=== PATIENT | female | born 1985 | race Caucasian/White ===

== ENCOUNTER 2020-05-12 13:59 | Emergency (ER) | payer SELFPAY ==
[2020-05-12 14:05] VITALS: BP 137/77; PULSE 76; RESP 18; TEMP 37.1; O2SAT 99
[2020-05-12] MEDS: TETANUS,DIPHTHERIA,AC PERTUSSIS ADULT 0.5 ML (ADACEL) IM (14:32)
--- NOTE | 2020-05-12 14:32 | ED.ANIMALBIT ---
HPI - Animal Bite General Chief Complaint: Animal Bite Stated Complaint: cat bite Time Seen by Provider: 05/12/20 14:20 Source: patient Mode of arrival: ambulatory Limitations: no limitations History of Present Illness HPI narrative: Previously well 34-year-old woman comes in today complaining of a bite wounds to her left medial arm from a cat that she is watching for her sister. It occurred within the last hour. She denies any numbness, tingling weakness. MD complaint: animal bite Onset (ago): hour(s) (<1) Animal: cat Description of animal: household pet Mechanism: bite Location - Extremities: Left: arm Pain description: sharp Context: provoked Related Data Home Medications Medication Instructions Recorded Confirmed albuterol sulfate [ProAir HFA] 1 inh INHALATION QID 05/12/20 05/12/20 budesonide-formoterol [Symbicort] 2 puff INHALATION Q12H 05/12/20 05/12/20 clonazepam 1 mg PO BID 05/12/20 05/12/20 sertraline 150 mg PO DAILY 05/12/20 05/12/20 Allergies Allergy/AdvReac Type Severity Reaction Status Date / Time amoxicillin [From Amoxil] Allergy Itching Verified 05/12/20 14:21 bupropion [From Wellbutrin] Allergy Itching Verified 05/12/20 14:21 buspirone Allergy Itching Verified 05/12/20 14:21 ketorolac [From Toradol] Allergy Itching Verified 05/12/20 14:21 Latex, Natural Rubber Allergy Itching Verified 05/12/20 14:21 tramadol Allergy Itching Verified 05/12/20 14:21 Review of Systems Constitutional: Constitutional: Denies chills and Denies fever(s) Eyes: Eyes: Denies change in vision and Denies photophobia Cardiovascular: Cardiovascular: Denies chest pain and Denies radiating jaw, neck or arm pain Respiratory: Respiratory: Denies cough, Denies dyspnea and Denies wheezing Gastrointestinal: Gastrointestinal: Denies abdominal pain, Denies nausea and Denies vomiting Musculoskeletal: Musculoskeletal: Denies arthralgias and Denies joint swelling Integumentary/Breasts: Skin/Breast: Denies pruritus, Denies erythema and Denies rash Neurologic: Denies vertigo, Denies dizziness and Denies syncope Hematologic/Lymphatic: Hematologic/Lymphatic: Denies easy bleeding and Denies easy bruising Allergic/Immunologic: Allergic/Immunologic: Denies lip swelling and Denies wheezing PMFSH Social History Social History Smoking status: Current every day smoker Substance use: never Living arrangements: with family Exam Const: General: healthy appearing and alert Nutritional Appearance: obese Orientation/consciousness: patient oriented x3 Other: mild acute distress. HENMT: Face and sinus: normal facial exam Mouth: Yes moist mucous membranes Throat: posterior oropharynx normal Eyes: Conjunctivae: conjunctivae normal Pupils: Equal, round and reactive pupils present EOM: EOMs intact bilaterally Neck: Neck: normal visual inspection and no lymphadenopathy Resp: Effort & Inspection: normal respiratory effort and not labored Auscultation: clear to auscultation bilaterally, no rales, no rhonchi and no wheezes Cardio: Rate: regular rate Rhythm: regular rhythm Heart sounds: no murmurs Skin: General skin exam: normal color, no jaundice and no pallor Rashes: no rashes Neuro: General: patient oriented x3, moves all extremities, no focal motor deficits and CN's II-XI intact bilaterally Speech: normal speech Gait exam (Neuro): Normal gait present Extrem: General: normal to inspection and no clubbing, cyanosis or edema Psych: Appearance: grossly normal and well kempt Mental Status: mental status grossly normal Affect: normal affect Attitude: cooperative Thought content: Yes Normal thought content present Course Vital Signs Vital signs: Vital Signs Temperature 37.1 C 05/12/20 14:05 Pulse Rate 76 05/12/20 14:05 Respiratory Rate 18 05/12/20 14:05 Blood Pressure 137/77 05/12/20 14:05 Pulse Oximetry 99 05/12/20 14:05 Temperature 37
[2020-05-12 14:45] VITALS: RESP 17
== END 2020-05-12 14:45 | disposition home or self-care (01) ==
PROVIDERS: Emergency Provider Emergency Medicine
DX: S41.152A Open bite of left upper arm, initial encounter (principal); W55.01XA Bitten by cat, initial encounter
CPT/HCPCS: 90471; 90715; 99283

== ENCOUNTER 2022-06-16 20:20 | Emergency (ER) | payer OTHER, SELFPAY ==
--- NOTE | ~2022-06-16 | CT_ITS ---
EXAMINATION: CT lumbar spine wo con DATE: 06/16/2022 21:07 INDICATION: Lumbar back pain. TECHNIQUE: Computed tomography (CT) of the lumbar spine was performed without intravenous contrast. A utomated exposure control and iterative reconstruction technique were employed. The dose-length produ ct was 1480.31 mGy-cm. COMPARISON: None FINDINGS: There are 2 mm and 4 mm stones in right kidney. There is 4 degrees levocurvature of lumbar spine. There is 3 mm anterolisthesis of L4 on L5. Vertebral body heights are normal. There is mildly decreased disc height at L3-L4, moderately decreased disc height at L4-L5, and mildly decreased disc height at L5-S1. There are chronic bilateral L4 pars defects. The following disc levels are specifica lly discussed: L1-L2: The disc does not extend beyond the endplate margin. There is mild bilateral facet joint osteo arthritis. There is no neural foraminal stenosis. There is no central canal stenosis. L2-L3: The disc is bulging. There is mild bilateral facet joint osteoarthritis. There is mild bilater al neural foraminal stenosis. There is no central canal stenosis. L3-L4: The disc is bulging. There is mild bilateral facet joint osteoarthritis. There is no neural fo raminal stenosis. There is mild central canal stenosis. L4-L5: The disc is bulging. There is mild bilateral facet joint osteoarthritis. There is moderate and mild left neural foraminal stenosis. There is mild central canal stenosis. L5-S1: The disc is bulging. There is mild bilateral facet joint osteoarthritis. There is mild bilater al neural foraminal stenosis. There is mild central canal stenosis. IMPRESSION: 1. Chronic bilateral L4 pars defects with grade 1 anterolisthesis of L4 on L5. 2. Moderate lumbar spondylosis. Reviewed, dictated and finalized at location A.
[2022-06-16 20:25] VITALS: BP 121/75; PULSE 87; RESP 16; TEMP 35.9; O2SAT 100
[2022-06-16 21:01] LABS: Appearance Urine Clear (Clear); Bilirubin Urine Negative (Negative); Blood Urine Negative (Negative); Glucose Urine UA Negative (Negative); Ketones Urine Negative (Negative); Leukocyte Esterase Ur 1+ LEU/UL (Negative); Nitrate Urine Negative (Negative); Protein Urine Negative (Negative); Specific Grav Ur 1.015 (1.010-1.020); Urobilinogen Urine 0.2 mg/dL (0.2-1.0); pH Urine 7.5 (5.0-8.0)
[2022-06-16] MEDS: ORPHENADRINE CITRATE 100 MG TABLET.ER PO (21:08)
[2022-06-16] MEDS: MORPHINE SULFATE (*CRX) 2 MG/ML INJ IV PUSH (21:09)
[2022-06-16 21:11] LABS: Add Urine Microscopic? YES; Amorphous Sediment Urine Few; Bacteria Urine 2+ /hpf; Color Urine Light Yellow (Yellow); RBC Urine 0-2 /hpf (0-2); Squamous Epithelial Cell Urine Moderate /hpf (Few)
--- NOTE | 2022-06-16 21:19 | ED.BACK ---
HPI - Back Pain/Injury General Chief Complaint: Back Pain/Injury Stated Complaint: incontinence; doctor told her to come here Time Seen by Provider: 06/16/22 20:22 Source: patient and family Mode of arrival: ambulatory Limitations: no limitations History of Present Illness HPI Narrative: this is a 36-year-old female with a history of chronic back pain takes pain medication and muscle relaxants. Over the last 2 weeks her symptoms have worsened where she is having sciatic pain radiating down her right lower leg and has been having urinary frequency with dysuria with no flank pain no fever chills. There is no saddle paresthesias there is no bowel dysfunction. MD elicited complaint: back pain Pertinent past history: prior back pain Onset (ago): week(s) Timing: intermittent Severity: moderate Quality: sharp and tingling Location: lumbar spine Radiation: right upper leg and right leg below the knee Exacerbating factors: movement, coughing/sneezing and lifting Relieving factors: immobilization Context: while lifting and turning/twisting Related Data Home Medications Medication Instructions Recorded Confirmed albuterol sulfate 90 mcg/actuation 1 inh inhalation QID 05/12/20 06/16/22 aerosol inhaler (ProAir HFA) budesonide-formoterol HFA 160 2 puff inhalation Q12H 05/12/20 06/16/22 mcg-4.5 mcg/actuation aerosol inhaler (Symbicort) clonazepam 1 mg tablet 1 mg PO BID 05/12/20 06/16/22 sertraline 100 mg tablet 150 mg PO DAILY 05/12/20 06/16/22 atorvastatin 10 mg tablet 10 mg PO DAILY 06/16/22 06/16/22 baclofen 20 mg tablet 20 mg PO TID PRN Pain 06/16/22 06/16/22 iasghwcgth-hnljpdxhtpdps-sgiitobo 1 tablet PO Q1-4H PRN Headache 06/16/22 06/16/22 50 mg-325 mg-40 mg tablet celecoxib 200 mg capsule 200 mg PO DAILY 06/16/22 06/16/22 duloxetine 60 mg capsule,delayed 60 mg PO DAILY 06/16/22 06/16/22 release hydrocodone 10 mg-acetaminophen 1 tablet PO TID PRN Pain 06/16/22 06/16/22 325 mg tablet Allergies Allergy/AdvReac Type Severity Reaction Status Date / Time amoxicillin [From Amoxil] Allergy Itching Verified 06/16/22 20:33 bupropion [From Wellbutrin] Allergy Itching Verified 06/16/22 20:33 buspirone Allergy Itching Verified 06/16/22 20:33 ketorolac [From Toradol] Allergy Itching Verified 06/16/22 20:33 Latex, Natural Rubber Allergy Itching Verified 06/16/22 20:33 tramadol Allergy Itching Verified 06/16/22 20:33 Review of Systems Review of Systems: All systems reviewed & are unremarkable except as noted in HPI and below PMFSH Past Medical History Medical History (Updated 06/16/22 @ 22:21 by Jose Menendez MD) Asthma Bipolar disorder Surgical History Surgical History H/O oophorectomy H/O tubal ligation History of appendectomy Hx of cholecystectomy Social History Social History Smoking status: Current every day smoker Substance use: never Exam Const: General: healthy appearing Nutritional Appearance: well nourished Orientation/consciousness: patient oriented x3 Limitations: no limitations HENMT: Head: normal to inspection Eyes: EOM: EOMs intact bilaterally Neck: Neck: normal visual inspection Chest: Chest palpation & inspection: normal inspection of the chest Resp: Effort & Inspection: normal respiratory effort Auscultation: clear to auscultation bilaterally Cardio: Rate: regular rate GI: GI Palp: Yes Soft to palpation : General: Yes bladder normal to palpation Urinary Catheter: Urinary Catheter: patent and draining Back/Spine/Pelvis: Back: no CVA tenderness Skin: General skin exam: normal color Rashes: no rashes Neuro: General: patient oriented x3 Cranial nerves: Yes Nystagmus not present Extrem: General: normal to inspection and no clubbing, cyanosis or edema Psych: Mental Status: mental status grossly normal Affect: normal affect Course Cour
[2022-06-16] MEDS: NITROFURANTOIN MONOHYD MACROCR 100 MG CAP PO (21:20)
[2022-06-16 22:26] VITALS: BP 122/72; PULSE 73; RESP 16; O2SAT 99
== END 2022-06-16 22:26 | disposition home or self-care (01) ==
PROVIDERS: Emergency Provider Emergency Medicine; PCP Nurse Practitioner Family
DX: M54.16 Radiculopathy, lumbar region (principal); N30.00 Acute cystitis without hematuria
CPT/HCPCS: 72131; 81001; 87086; 96374; 99284; A9270; J2270

== ENCOUNTER 2022-09-23 09:03 | Emergency (ER) | payer OTHER, SELFPAY ==
[2022-09-23 09:08] VITALS: BP 138/76; PULSE 83; RESP 14; TEMP 36.3; O2SAT 98
[2022-09-23 09:15] VITALS: BP 138/78; PULSE 83; RESP 14; TEMP 36.3; O2SAT 98
--- NOTE | 2022-09-23 09:17 | ED.BACK ---
HPI - Back Pain/Injury General Chief Complaint: Back Pain/Injury Stated Complaint: back pain Time Seen by Provider: 09/23/22 09:17 Source: patient and RN notes reviewed Mode of arrival: ambulatory Limitations: no limitations History of Present Illness HPI Narrative: Patient states that she has a history of spinal stenosis and 3 bulging disc. She is currently on a pain contract in taking hydrocodone for her pain. She recently started on physical therapy and so her pain is increased. She says that because of her pain contract when she gets worsening pain her doctor said that she has come the emergency room. She took a hydrocodone 10 mg last evening says that it did not work so should she take 1 this morning. She did not take anything this morning. MD elicited complaint: back pain Pertinent past history: prior back pain Onset (ago): day(s) (1) Timing: constant Severity: severe Similar Symptoms Previously: Yes Location: lumbar spine Radiation: right leg below the knee Exacerbating factors: movement Relieving factors: none Associated symptoms: denies other symptoms Work related injury: No Related Data Home Medications Medication Instructions Recorded Confirmed albuterol sulfate 90 mcg/actuation 1 inh inhalation QID 05/12/20 09/23/22 aerosol inhaler (ProAir HFA) budesonide-formoterol HFA 160 2 puff inhalation Q12H 05/12/20 09/23/22 mcg-4.5 mcg/actuation aerosol inhaler (Symbicort) clonazepam 1 mg tablet 1 mg PO BID 05/12/20 09/23/22 sertraline 100 mg tablet 150 mg PO DAILY 05/12/20 09/23/22 atorvastatin 10 mg tablet 10 mg PO DAILY 06/16/22 09/23/22 baclofen 20 mg tablet 20 mg PO TID PRN Pain 06/16/22 09/23/22 eulicdyhsu-wbwlcsxkorbpo-qwwnqsys 1 tablet PO Q1-4H PRN Headache 06/16/22 09/23/22 50 mg-325 mg-40 mg tablet celecoxib 200 mg capsule 200 mg PO DAILY 06/16/22 09/23/22 duloxetine 60 mg capsule,delayed 60 mg PO DAILY 06/16/22 09/23/22 release hydrocodone 10 mg-acetaminophen 1 tablet PO TID PRN Pain 06/16/22 09/23/22 325 mg tablet Allergies Allergy/AdvReac Type Severity Reaction Status Date / Time amoxicillin [From Amoxil] Allergy Itching Verified 09/23/22 09:12 bupropion [From Wellbutrin] Allergy Itching Verified 09/23/22 09:12 buspirone Allergy Itching Verified 09/23/22 09:12 ketorolac [From Toradol] Allergy Itching Verified 09/23/22 09:12 Latex, Natural Rubber Allergy Itching Verified 09/23/22 09:12 tramadol Allergy Itching Verified 09/23/22 09:12 Review of Systems Review of Systems: All systems reviewed & are unremarkable except as noted in HPI and below PMFSH Past Medical History Medical History (Updated 09/23/22 @ 09:30 by Ricardo Mirza MD) Asthma Bipolar disorder Degenerative disc disease Surgical History Surgical History H/O oophorectomy H/O tubal ligation History of appendectomy Hx of cholecystectomy Social History Social History Smoking status: Current every day smoker Substance use: never Living arrangements: with family Exam Const: General: no acute distress, alert and ill appearing acutely Nutritional Appearance: obese morbidly obese Orientation/consciousness: patient oriented x3 Limitations: no limitations HENMT: Head: normal to inspection Ears: external ears normal Face/Nose/Sinus: Normal external nose present Face and sinus: normal facial exam Mouth: Yes moist mucous membranes Eyes: Conjunctivae: conjunctivae normal Pupils: Equal, round and reactive pupils present EOM: EOMs intact bilaterally Neck: Neck: normal visual inspection Resp: Effort & Inspection: normal respiratory effort Auscultation: clear to auscultation bilaterally Cardio: Rate: regular rate Rhythm: regular rhythm GI: GI Palp: Yes Soft to palpation and No Tenderness to palpation present (GI) Auscultation: normal bowel sounds Back/Spine/Pelvis: Cervical Spine: cerv
--- NOTE | 2022-09-23 09:25 | PC.NURSE ---
In room with Dr. Mirza during physical exam
[2022-09-23] MEDS: ORPHENADRINE CITRATE 30 MG/ML 2 ML VIAL 60 MG IM (09:29)
[2022-09-23] MEDS: KETOROLAC (*BKC) 60 MG/2 ML VIAL IM (09:30)
[2022-09-23 09:43] VITALS: BP 138/78; PULSE 83; RESP 14; TEMP 36.3; O2SAT 98
== END 2022-09-23 09:43 | disposition home or self-care (01) ==
LOC: CHSED 09:38
PROVIDERS: Emergency Provider Emergency Medicine; PCP Nurse Practitioner Family
DX: M54.31 Sciatica, right side (principal); J45.909 Unspecified asthma, uncomplicated; F17.200 Nicotine dependence, unspecified, uncomplicated; Z79.891 Long term (current) use of opiate analgesic
CPT/HCPCS: 96372; 99284; J1885; J2360

== ENCOUNTER 2022-11-12 17:43 | Emergency (ER) | payer OTHER, SELFPAY ==
[2022-11-12 17:49] VITALS: BP 129/88; PULSE 107; RESP 18; TEMP 35.9; O2SAT 98
[2022-11-12] MEDS: ACETAMINOPHEN 325 MG TABLET 650 MG PO (18:22)
[2022-11-12 18:40] LABS: Influenza A QL RT-PCR Negative (Negative); Influenza B QL RT-PCR Negative (Negative); SARS-CoV-2 RNA PCR Negative (Negative)
[2022-11-12 18:41] LABS: RSV RNA, RT-PCR Negative (Negative)
[2022-11-12 18:54] LABS: Strep Group A RT-PCR NOT DETECTED (Negative)
--- NOTE | 2022-11-12 19:06 | ED.URI ---
HPI - URI/Sore Throat General Chief Complaint: Upper Respiratory Infection Stated Complaint: Sore Throat, head, chest congestion Time Seen by Provider: 11/12/22 17:45 Source: patient and family Mode of arrival: ambulatory History of Present Illness HPI Narrative: This is a 36-year-old female that presents with sore throat and low-grade fever and chills currently afebrile and has a sore throat and was exposed to strep throat currently no shortness of breaths no audible wheezing no chest pain no nausea vomiting. MD elicited complaint: sore throat and nasal congestion Onset (ago): day(s) Consistency: constant Severity: mild Related Data Home Medications Medication Instructions Recorded Confirmed albuterol sulfate 90 mcg/actuation 1 inh inhalation QID 05/12/20 11/12/22 aerosol inhaler (ProAir HFA) budesonide-formoterol HFA 160 2 puff inhalation Q12H 05/12/20 11/12/22 mcg-4.5 mcg/actuation aerosol inhaler (Symbicort) clonazepam 1 mg tablet 1 mg PO BID 05/12/20 11/12/22 sertraline 100 mg tablet 150 mg PO DAILY 05/12/20 11/12/22 atorvastatin 10 mg tablet 10 mg PO DAILY 06/16/22 11/12/22 baclofen 20 mg tablet 20 mg PO TID PRN Pain 06/16/22 11/12/22 [id number]-hgtvlfiswcasb-skfpyouj 1 tablet PO Q1-4H PRN Headache 06/16/22 11/12/22 50 mg-325 mg-40 mg tablet celecoxib 200 mg capsule 200 mg PO DAILY 06/16/22 11/12/22 duloxetine 60 mg capsule,delayed 60 mg PO DAILY 06/16/22 11/12/22 release hydrocodone 10 mg-acetaminophen 1 tablet PO TID PRN Pain 06/16/22 11/12/22 325 mg tablet Allergies Allergy/AdvReac Type Severity Reaction Status Date / Time amoxicillin [From Amoxil] Allergy Itching Verified 11/12/22 17:51 bupropion [From Wellbutrin] Allergy Itching Verified 11/12/22 17:51 buspirone Allergy Itching Verified 11/12/22 17:51 ketorolac [From Toradol] Allergy Itching Verified 11/12/22 17:51 Latex, Natural Rubber Allergy Itching Verified 11/12/22 17:51 tramadol Allergy Itching Verified 11/12/22 17:51 Review of Systems Review of Systems: All systems reviewed & are unremarkable except as noted in HPI and below PMFSH Past Medical History Medical History Asthma Bipolar disorder Degenerative disc disease Surgical History Surgical History H/O oophorectomy H/O tubal ligation History of appendectomy Hx of cholecystectomy Social History Social History Smoking status: Current every day smoker Substance use: never Living arrangements: with family Exam Const: General: healthy appearing Nutritional Appearance: well nourished Orientation/consciousness: patient oriented x3 Limitations: no limitations HENMT: Head: normal to inspection Face/Nose/Sinus: Normal external nose present Face and sinus: normal facial exam Mouth: Yes Normal oral and palatal mucosa present Eyes: Conjunctivae: conjunctivae normal Pupils: Equal, round and reactive pupils present EOM: EOMs intact bilaterally Neck: Neck: normal visual inspection Chest: Chest palpation & inspection: normal inspection of the chest Resp: Effort & Inspection: normal respiratory effort Auscultation: clear to auscultation bilaterally Cardio: Rate: regular rate Rhythm: regular rhythm GI: GI Palp: Yes Soft to palpation Skin: General skin exam: normal color Rashes: no rashes Neuro: General: patient oriented x3 Cranial nerves: Yes Nystagmus not present Speech: normal speech Extrem: General: normal to inspection Psych: Mental Status: mental status grossly normal Affect: normal affect Attitude: cooperative Course Course Emergency Course: For COVID were negative but since the patient's significant other tested positive for strep and she has been exposed will treat with antibiotics patient did receive p.o. Tylenol. Vital Signs Vital signs: Vital Signs Temperature
[2022-11-12] MEDS: AZITHROMYCIN 250 MG TABLET 500 MG PO (19:24)
[2022-11-12 19:28] VITALS: BP 133/83; PULSE 88; RESP 20; TEMP 36.7; O2SAT 99
== END 2022-11-12 19:31 | disposition home or self-care (01) ==
PROVIDERS: Emergency Provider Emergency Medicine; PCP Nurse Practitioner Family
DX: J02.9 Acute pharyngitis, unspecified (principal); J45.909 Unspecified asthma, uncomplicated; F17.200 Nicotine dependence, unspecified, uncomplicated; Z79.891 Long term (current) use of opiate analgesic; Z20.822 Contact with and (suspected) exposure to COVID-19
CPT/HCPCS: 87637; 87651; 99283; A9270

== ENCOUNTER 2023-02-23 16:44 | Emergency (ER) | payer OTHER, SELFPAY ==
[2023-02-23 16:48] VITALS: BP 138/80; PULSE 104; RESP 18; TEMP 36.3; O2SAT 97
--- NOTE | 2023-02-23 16:51 | ED.UPPEXIN ---
HPI - Extremity Injury (Upper) General Chief Complaint: Extremity Injury, Upper Stated Complaint: shoulder pain Time Seen by Provider: 02/23/23 16:48 Source: patient and family Limitations: no limitations History of Present Illness HPI narrative: This is a 37-year-old female that had sustained a shoulder injury and was informed that she has a shoulder fracture and has an appointment to see Orthopedics tomorrow, presents today just to have a sling placed. Evaluated the patient there is no shortness of breath no chest pain does take medication for pain in her left shoulder and has a no numbness or tingling strong brisk radial pulse on the left. complaint: injury to: left Onset (ago): day(s) Severity: moderate Severity scale (1-10): 6 Related Data Home Medications Medication Instructions Recorded Confirmed albuterol sulfate 90 mcg/actuation 1 inh inhalation QID 05/12/20 02/23/23 aerosol inhaler (ProAir HFA) budesonide-formoterol HFA 160 2 puff inhalation Q12H 05/12/20 02/23/23 mcg-4.5 mcg/actuation aerosol inhaler (Symbicort) clonazepam 1 mg tablet 1 mg PO BID 05/12/20 02/23/23 sertraline 100 mg tablet 150 mg PO DAILY 05/12/20 02/23/23 atorvastatin 10 mg tablet 10 mg PO DAILY 06/16/22 02/23/23 baclofen 20 mg tablet 20 mg PO TID PRN Pain 06/16/22 02/23/23 [id number]-turiyvcskkqbe-cufzqvzb 1 tablet PO Q1-4H PRN Headache 06/16/22 02/23/23 50 mg-325 mg-40 mg tablet celecoxib 200 mg capsule 200 mg PO DAILY 06/16/22 02/23/23 duloxetine 60 mg capsule,delayed 60 mg PO DAILY 06/16/22 02/23/23 release hydrocodone 10 mg-acetaminophen 1 tablet PO TID PRN Pain 06/16/22 02/23/23 325 mg tablet Allergies Allergy/AdvReac Type Severity Reaction Status Date / Time amoxicillin [From Amoxil] Allergy Itching Verified 11/12/22 17:51 bupropion [From Wellbutrin] Allergy Itching Verified 11/12/22 17:51 buspirone Allergy Itching Verified 11/12/22 17:51 ketorolac [From Toradol] Allergy Itching Verified 11/12/22 17:51 Latex, Natural Rubber Allergy Itching Verified 11/12/22 17:51 tramadol Allergy Itching Verified 11/12/22 17:51 Review of Systems Review of Systems: All systems reviewed & are unremarkable except as noted in HPI and below PMFSH Past Medical History Medical History Asthma Bipolar disorder Degenerative disc disease Surgical History Surgical History H/O oophorectomy H/O tubal ligation History of appendectomy Hx of cholecystectomy Social History Social History Smoking status: Current every day smoker Substance use: never Living arrangements: with family Exam Const: General: healthy appearing Nutritional Appearance: well nourished Orientation/consciousness: patient oriented x3 Limitations: no limitations Neck: Neck: normal visual inspection Chest: Chest palpation & inspection: normal inspection of the chest Resp: Effort & Inspection: normal respiratory effort Auscultation: clear to auscultation bilaterally Cardio: Rate: regular rate Rhythm: regular rhythm GI: GI Palp: Yes Soft to palpation Skin: General skin exam: normal color Rashes: no rashes Neuro: General: patient oriented x3 Extrem: Other: Tender left shoulder with decreased range of motion secondary to sustain fracture Course Course Emergency Course: a sling placed on left arm and does have an ortho follow-up for a shoulder fracture. Vital Signs Vital signs: Vital Signs Temperature 36.3 C L 02/23/23 16:48 Pulse Rate 104 H 02/23/23 16:48 Respiratory Rate 18 02/23/23 16:48 Blood Pressure 138/80 02/23/23 16:48 Pulse Oximetry 97 02/23/23 16:48 Oxygen Delivery Room Air 02/23/23 16:48 Temperature 36.3 C L 02/23/23 16:48 Pulse Rate 104 H 02/23/23 16:48 Respiratory Rate 18 02/23/23 16:48 Blood Pressure 138/80 0
[2023-02-23 17:18] VITALS: BP 135/82; PULSE 98; RESP 17; TEMP 36.3; O2SAT 100
== END 2023-02-23 17:18 | disposition home or self-care (01) ==
PROVIDERS: Emergency Provider Emergency Medicine; PCP Nurse Practitioner Family
DX: S42.92XD Fracture of left shoulder girdle, part unspecified, subsequent encounter for fracture with routine healing (principal); F17.200 Nicotine dependence, unspecified, uncomplicated; Z79.891 Long term (current) use of opiate analgesic; X58.XXXD Exposure to other specified factors, subsequent encounter
CPT/HCPCS: 99282; A4565

== ENCOUNTER 2023-04-12 18:09 | Emergency (ER) | payer OTHER, SELFPAY | END 2023-04-12 18:47 | disposition home or self-care (01) | PROVIDERS: Emergency Provider Internal Medicine Critical Care Medicine | DX: N61.0 Mastitis without abscess (principal); T63.301A Toxic effect of unspecified spider venom, accidental (unintentional), initial encounter | CPT/HCPCS: 99283 ==

== ENCOUNTER 2023-08-05 14:53 | Emergency (ER) | payer OTHER, SELFPAY ==
[2023-08-05 14:56] VITALS: BP 125/86; PULSE 110; RESP 18; TEMP 36.9; O2SAT 98
--- NOTE | 2023-08-05 15:08 | ED.BACK ---
HPI - Back Pain/Injury General Chief Complaint: Back Pain/Injury Stated Complaint: back pain Time Seen by Provider: 08/05/23 14:59 Source: patient Mode of arrival: ambulatory Limitations: no limitations History of Present Illness HPI Narrative: this is a 37-year-old female with a history of chronic back pain that has increased in intensity over the last 3 to 4 days with radiation into her right lower extremity with a negative straight leg raising test with no saddle paresthesias no fever chills has some pain medicine at home that she says has not been helping. MD elicited complaint: back pain Pertinent past history: prior back pain Onset (ago): day(s) Timing: constant Severity: moderate Quality: dull and spasming Related Data Home Medications Medication Instructions Recorded Confirmed albuterol sulfate 90 mcg/actuation 1 inh inhalation QID 05/12/20 02/23/23 aerosol inhaler (ProAir HFA) budesonide-formoterol HFA 160 2 puff inhalation Q12H 05/12/20 02/23/23 mcg-4.5 mcg/actuation aerosol inhaler (Symbicort) clonazepam 1 mg tablet 1 mg PO BID 05/12/20 02/23/23 sertraline 100 mg tablet 150 mg PO DAILY 05/12/20 02/23/23 atorvastatin 10 mg tablet 10 mg PO DAILY 06/16/22 02/23/23 baclofen 20 mg tablet 20 mg PO TID PRN Pain 06/16/22 02/23/23 wvcibaqhpj-ukwiswurgseym-pgfbtrqt 1 tablet PO Q1-4H PRN Headache 06/16/22 02/23/23 50 mg-325 mg-40 mg tablet celecoxib 200 mg capsule 200 mg PO DAILY 06/16/22 02/23/23 duloxetine 60 mg capsule,delayed 60 mg PO DAILY 06/16/22 02/23/23 release hydrocodone 10 mg-acetaminophen 1 tablet PO TID PRN Pain 06/16/22 02/23/23 325 mg tablet Allergies Allergy/AdvReac Type Severity Reaction Status Date / Time amoxicillin [From Amoxil] Allergy Itching Verified 11/12/22 17:51 bupropion [From Wellbutrin] Allergy Itching Verified 11/12/22 17:51 buspirone Allergy Itching Verified 11/12/22 17:51 ketorolac [From Toradol] Allergy Itching Verified 11/12/22 17:51 Latex, Natural Rubber Allergy Itching Verified 11/12/22 17:51 tramadol Allergy Itching Verified 11/12/22 17:51 Review of Systems Review of Systems: All systems reviewed & are unremarkable except as noted in HPI and below PMFSH Past Medical History Medical History Asthma Bipolar disorder Degenerative disc disease Surgical History Surgical History H/O oophorectomy H/O tubal ligation History of appendectomy Hx of cholecystectomy Social History Social History Smoking status: Current every day smoker Substance use: never Living arrangements: with family Exam Const: General: healthy appearing Nutritional Appearance: well nourished Orientation/consciousness: patient oriented x3 Chest: Chest palpation & inspection: normal inspection of the chest Resp: Effort & Inspection: normal respiratory effort Auscultation: clear to auscultation bilaterally Cardio: Rate: regular rate Rhythm: regular rhythm GI: GI Palp: Yes Soft to palpation Auscultation: normal bowel sounds Back/Spine/Pelvis: Back: no CVA tenderness Skin: General skin exam: normal color Neuro: Other: Has right lower back discomfort with palpation with a negative straight leg raising test. Extrem: General: normal to inspection Psych: Mental Status: mental status grossly normal Affect: normal affect Course Course Emergency Course: Patient received a dose of 80mg Depo-Medrol IM and advised to take prednisone that is prescribed and Flexeril and follow with primary care physician within the next 3 to 4 days for further evaluation and treatment. Vital Signs Vital signs: Vital Signs Temperature 36.9 C 08/05/23 14:56 Pulse Rate 110 H 08/05/23 14:56 Respiratory Rate 18 08/05/23 14:56 Blood Pressure 125/86 08/05/23 14:56 Pulse Oximetry 98 08/05/23 14:56 O
[2023-08-05] MEDS: methylPREDNISolone ACETATE 40 MG/ML VIAL 80 MG IM (15:17)
[2023-08-05 15:44] VITALS: BP 128/88; PULSE 90; RESP 20; O2SAT 100
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
== END 2023-08-05 15:45 | disposition home or self-care (01) ==
PROVIDERS: Emergency Provider Emergency Medicine
DX: M54.30 Sciatica, unspecified side (principal); F17.200 Nicotine dependence, unspecified, uncomplicated
CPT/HCPCS: 96372; 99283; J1030

== ENCOUNTER 2024-06-12 20:54 | Emergency (ER) | payer OTHER, SELFPAY ==
--- NOTE | 2024-06-12 20:56 | ED.FEMALEGU ---
HPI - Female Genitourinary General Chief complaint: Urogenital-Female Stated complaint: urogenital female Time Seen by Provider: 06/12/24 20:56 Source: patient Mode of arrival: ambulatory Limitations: no limitations History of Present Illness HPI Narrative: 38-year-old female, smoker with a history of bipolar, dyslipidemia, COPD, DJD presents to the ED with a 1 day history of -- dysuria/ hematuria -- suprapubic abdominal pain. patient denied flank pain. No fever or chills status post BTL, oophorectomy, appendectomy, cholecystectomy. MD elicited complaint: dysuria and UTI Onset (ago): day(s) ( 1 day) Severity: moderate Female Urogenital Radiation: Non-Radiating Patient : No Possible : other ( Status post BTL) Date of Last Menstrual Period: 05/01/24 Related Data : 3 Total number of abortions (spontaneous and elective): 1 Home Medications Medication Instructions Recorded Confirmed clonazepam 1 mg tablet 1 mg PO BID 05/12/20 06/12/24 sertraline 100 mg tablet 200 mg PO DAILY 05/12/20 06/12/24 atorvastatin 10 mg tablet 10 mg PO DAILY 06/16/22 06/12/24 baclofen 20 mg tablet 20 mg PO TID PRN Pain 06/16/22 06/12/24 celecoxib 200 mg capsule 200 mg PO DAILY 06/16/22 06/12/24 duloxetine 60 mg capsule,delayed 60 mg PO DAILY 06/16/22 06/12/24 release hydrocodone 10 mg-acetaminophen 1 tablet PO TID PRN Pain 06/16/22 06/12/24 325 mg tablet prazosin 1 mg capsule 2 mg PO HS 08/05/23 06/12/24 albuterol sulfate 90 mcg/actuation 90 mcg inhalation PRN 06/12/24 06/12/24 aerosol inhaler atogepant 60 mg tablet (Qulipta) 60 mg PO DAILY 06/12/24 06/12/24 budesonide-formoterol HFA 160 2 puff inhalation DAILY 06/12/24 06/12/24 mcg-4.5 mcg/actuation aerosol inhaler (Symbicort) cariprazine 3 mg capsule (Vraylar) 3 mg PO DAILY 06/12/24 06/12/24 ergocalciferol (vitamin D2) 1,250 1,250 mcg PO DAILY 06/12/24 06/12/24 mcg (50,000 unit) capsule methocarbamol 750 mg tablet 750 mg PO PRN 06/12/24 06/12/24 Allergies Allergy/AdvReac Type Severity Reaction Status Date / Time amoxicillin [From Amoxil] Allergy Itching Verified 06/12/24 21:00 bupropion [From Wellbutrin] Allergy Itching Verified 06/12/24 21:00 buspirone Allergy Itching Verified 06/12/24 21:00 gabapentin Allergy Unknown Verified 06/12/24 21:00 ketorolac [From Toradol] Allergy Itching Verified 06/12/24 21:00 Latex, Natural Rubber Allergy Itching Verified 06/12/24 21:00 quetiapine [From Seroquel] Allergy Unknown Verified 06/12/24 21:00 tramadol Allergy Itching Verified 06/12/24 21:00 Review of Systems Review of Systems: All systems reviewed & are unremarkable except as noted in HPI and below Constitutional: Constitutional: Reports as per HPI and Reports no additional constitutional complaints Eyes: Eyes: Reports as per HPI and Reports no additional eye complaints ENT: Reports system reviewed and no additional complaints, except as documented and Reports as per HPI Cardiovascular: Cardiovascular: Reports as per HPI and Reports no additional cardiovascular complaints Respiratory: Respiratory: Reports as per HPI and Reports no additional respiratory complaints Gastrointestinal: Gastrointestinal: Reports as per HPI and Reports no additional gastrointestinal complaints Genitourinary: Genitourinary: Reports no additional female genitourinary complaints, Reports as per HPI, Reports hematuria and Reports dysuria Musculoskeletal: Musculoskeletal: Reports no additional musculoskeletal complaints and Reports as per HPI Integumentary/Breasts: Skin/Breast: Reports system reviewed and no additional complaints, except as docu and Reports as per HPI Neurologic: Reports system reviewed and no additional complaints, except as documented and Reports as per HPI Psychiatric: Psychiatric: Reports no additional psychiatric complaints and Reports as per HPI Endocrine: Endocrine: Reports no additional endocrine complaints and Reports as per HPI Hematologic/Lym
[2024-06-12 20:57] VITALS: BP 140/79; PULSE 107; RESP 18; TEMP 37; O2SAT 97
--- NOTE | 2024-06-12 20:59 | PC.NURSE ---
pt aware a urine specimen is needed. pt unable to go at this time
[2024-06-12 21:15] LABS: Add Urine Microscopic? YES; Appearance Urine Cloudy (Clear); Bilirubin Urine 1+ (Negative); Blood Urine 3+ (Negative); Color Urine Yellow (Yellow); Glucose Urine UA Negative (Negative); Ketones Urine Trace (Negative); Leukocyte Esterase Ur 2+ LEU/UL (Negative); Nitrate Urine Negative (Negative); Protein Urine 2+ (Negative); Specific Grav Ur >= 1.030 (1.010-1.020); pH Urine 5.5 (5.0-8.0)
[2024-06-12 21:21] LABS: Bacteria Urine 1+ /hpf; RBC Urine >75 /hpf (0-2); Squamous Epithelial Cell Urine Few /hpf (Few); WBC Urine >75 /hpf (0-3)
[2024-06-12] MEDS: CIPROFLOXACIN 250 MG TABLET PO (21:34)
[2024-06-12 21:44] VITALS: PULSE 98
--- NOTE | 2024-06-15 12:08 | PC.NURSE ---
final urine culture report reviewed. >[id number] staph saprophyticus.
--- NOTE | 2024-06-15 12:10 | PC.NURSE ---
pt discharged on cipro. urine culture shows susceptibility to same. no change in plan of care
== END 2024-06-12 21:44 | disposition home or self-care (01) ==
PROVIDERS: Emergency Provider Internal Medicine Critical Care Medicine; PCP Nurse Practitioner Family
DX: N30.01 Acute cystitis with hematuria (principal); F17.200 Nicotine dependence, unspecified, uncomplicated; Z79.899 Other long term (current) drug therapy; Z79.891 Long term (current) use of opiate analgesic
CPT/HCPCS: 81001; 87077; 87086; 87088; 99283; A9270

== ENCOUNTER 2025-03-21 16:39 | Emergency (ER) | payer OTHER, SELFPAY ==
[2025-03-21 16:39] VITALS: BP 134/72; PULSE 96; RESP 16; TEMP 36.1; O2SAT 98
--- OUTSIDE RECORDS SUMMARY | 2025-03-21 16:47 | XMS_ITS | Encounter Summary ---
Author Organization [facility] Address [facility] [place] [address] Care Team Providers Care Tax Attorney Name Role Phone Kat Jimenez Primary Care Provider [phone] Encounter Details Date Type Department Care Team (Late st Contact Info) Description 09/10/2022 MyChart Message Enc [facility] Medical Group Family & Internal Medicine [facility] [address] [place] [address] Kat Jimenez FNP [address] [place] [address] Ability to work Social History Tobacco Use Types Packs/Day Years Used Date Smoking Tobacco: Former Cigarettes 0.5 20 0 08/30/1999 - 08/30/2019 Smokeless Tobacco: Never Alcohol Use Standard Drinks/Week Comments Not Currently 0 (1 standard drink = 0.6 oz pur e alcohol) AUDIT-C Answer Date Recorded Q1: How often do you have a drink containing alc ohol? Monthly or less 12/29/2020 Q2: How many drinks containi ng alcohol do you have on a typical day when you are drinking? 1 or 2 12/29/2020 Frequency of Binge Drinking Not on file 11/2020 PHQ-2 Answer Date Recorded Patient Health Questionnaire-2 Score 0 08/17/2022 Comments No Sex and Gender Information Value Date Recorded Sex Assigned at Female 12/12/2024 2:30 PM CDT Legal Sex Female 9:29 PM CDT Gender Identity Not on file Sexual Orientation Not on file COVID-19 Exposure Response Date Recorded In the last 10 days, have yo u been in contact with someone who was confirmed or suspected to have Coronavirus/COVID-19? No / Unsure 08/17/2022 2:09 PM STOCK HOLDER documented as of this encounter Plan of Treatment Upcoming Encounters Date Type Department Care Team (Late st Contact Info) Description 04/17/2025 9:00 AM CDT Office Visit [facility] - [place] [address] [place] [address], 2nd [place] [address] Deny Rodriguez, DPM [address] [place] [address] 05/28/2025 10:40 AM CDT Office Visit [facility]ispecialty Care - [facility] [address] [facility], [address] [place] [address] Jose Vaughn MD [address] [place] [address] documented as of this encounter Visit Diagnoses Not on filedocumented in this encounter Additional Health Concerns Assessment Noted Time PHQ-9 Depression Total Score: 0 11/26/19 22 2:34 PM CDT documented as of this encounter Care Teams Tax Attorney Relationship Specialty Start Date End Date Kat Jimenez FNP [address] [place] [address] PCP - General Nurse Practitioner Family 02/11/21 documented as of this encounter
--- OUTSIDE RECORDS SUMMARY | 2025-03-21 16:47 | XMS_ITS | Encounter Summary ---
Author Organization [facility] Address [facility] [place] [address] Care Team Providers Care Boiler Repair Supervisor Name Role Phone Kat Jimenez Primary Care Provider [phone] Encounter Details Date Type Department Care Team (Late st Contact Info) Description 09/16/2022 MyChart Message Enc [facility] Medical Group Family & Internal Medicine [facility] [address] [place] [address] Kat Jimenez FNP [address] [place] [address] MRI Social History Tobacco Use Types Packs/Day Years [...] suspected to have Coronavirus/COVID-19? No / Unsure 09/19/2022 1:02 PM TRAIN OPERATIONS MANAGER documented as of this encounter Plan of Treatment Upcoming Encounters Date Type Department Care Team (Late st Contact Info) Description 04/17/2025 9:00 AM CDT Office Visit [facility] - [address], 2nd [place] [address] Deny Rodriguez, DPM [address] [place] [address] 05/28/2025 10:40 AM CDT Office Visit [facility] Multispecialty Care - [facility] [address] [facility], [address] [place] [address] Jose Vaughn MD [address] [place] [address] documented as of this encounter Visit Diagnoses Not on filedocumented in this encounter Additional Health Concerns Assessment Noted Time PHQ-9 Depression Total Score: 0 11/26/19 22 2:34 PM CDT documented as of this encounter Care Teams Boiler Repair Supervisor Relationship Specialty Start Date End Date Kat Jimenez FNP [address] [place] [address] PCP - General Nurse Practitioner Family 02/11/21 documented as of this encounter
--- OUTSIDE RECORDS SUMMARY | 2025-03-21 16:47 | XMS_ITS | Encounter Summary ---
Author Organization [facility] Address [facility] [place] [address] Care Team Providers Care Home Stereo Equipment Installer Name Role Phone Kat Jimenez Primary Care Provider [phone] Encounter Details Date Type Department Care Team (Late st Contact Info) Description 03/01/2021 MyChart Message Enc [facility] Medical Group Family & Internal Medicine [facility] [address] [place] [address] Kat Jimenez FNP [address] [place] [address] RE: Other Social History Tobacco Use Types Packs/Day Years Used Date Smoking Tobacco: Former Cigarettes Q uit: 08/30/2019 Smokeless Tobacco: Never Alcohol Use Standard [...] on file 11/2020 PHQ-2 Answer Date Recorded PHQ-2 Score - If the patient scores above 3, please move on to questions 3-9 6 02/11/2021 Comments No Sex and Gender Information Value Date Recorded Sex Assigned at Female 12/12/2024 2:30 PM CDT Legal Sex Female 9:29 PM CDT Gender Identity Not on file Sexual Orientation Not on file COVID-19 Exposure Response Date Recorded In the last month, have you been in contact with someone who was confirmed or suspected to have Coronavirus / COVID-19? No / Unsure 02/18/2021 12:25 PM CDT documented as of this encounter Progress Notes * RAYMUNDO Orellana - 03/02/2021 10:45 AM CDT The fish oil, she can put in the freezer to minimize burps and nausea. The muscle spasms, She can use the muscle relaxer and also take a magnesium supplement at night to help with her spasms. documented in this encounter Plan of Treatment Upcoming Encounters Date Type Department Care Team (Late st Contact Info) Description 04/17/2025 9:00 AM CDT Office Visit [facility] Medical Group [facility] - [address], 2nd [place] [address] Deny Rodriguez DPM [address] [place] [address] 05/28/2025 10:40 AM CDT Office Visit [facility] Medical Group Multispecialty Care - [facility] [address] [facility], [address] [place] [address] Jose Vaughn MD [address] [place] [address] documented as of this encounter Visit Diagnoses Not on filedocumented in this encounter Additional Health Concerns Infection Onset Date Last Indicated Resolved Time COVID-19 Rule Out 05/10/2021 05/10/2021 05/12/2021 12:30 AM CDT Assessment Noted Time PHQ-9 Depression Total Score: 25 06/2 021 3:00 PM CDT documented as of this encounter Care Teams Home Stereo Equipment Installer Relationship Specialty Start Date End Date Kat Jimenez FNP [address] [place] [address] PCP - General Nurse Practitioner Family 02/11/21 documented as of this encounter
--- OUTSIDE RECORDS SUMMARY | 2025-03-21 16:47 | XMS_ITS | Encounter Summary ---
Author Organization [facility] Address [facility] [place] [address] Care Team Providers Care Provider Engagement Executive Name Role Phone Kat Jimenez Primary Care Provider [phone] Encounter Details Date Type Department Care Team (Late st Contact Info) Description 04/15/2021 MyChart Message Enc [facility] Medical Group Family & Internal Medicine [facility] [address] [place] [address] Kat Jimenez FNP [address] [place] [address] RE: FW: Question Social History Tobacco Use Types Packs/Day Years [...] have Coronavirus / COVID-19? No / Unsure 04/14/2021 2:39 PM CDT documented as of this encounter Plan of Treatment Upcoming Encounters Date Type Department Care Team (Late st Contact Info) Description 04/17/2025 9:00 AM CDT Office Visit [facility] - [place] [address] [facility], 2nd [place] [address] Deny Rodriguez, LAURIE [address] [place] [address] 05/28/2025 10:40 AM CDT Office Visit [facility] Multispecialty Care - [facility] [address] [facility], [address] [place] [address] Jose Vaughn MD [address] [place] [address] documented as of this encounter Visit Diagnoses Not on filedocumented in this encounter Additional Health Concerns Infection Onset Date Last Indicated Resolved Time COVID-19 Rule Out 05/10/2021 05/10/2021 05/12/2021 12:30 AM CDT Assessment Noted Time PHQ-9 Depression Total Score: 25 021 3:00 PM CDT documented as of this encounter Care Teams Provider Engagement Executive Relationship Specialty Start Date End Date Kat Jimenez FNP [address] [place] [address] PCP - General Nurse Practitioner Family 02/11/21 documented as of this encounter
--- OUTSIDE RECORDS SUMMARY | 2025-03-21 16:47 | XMS_ITS | Encounter Summary ---
Author Organization [facility] Address [facility] [place] [address] Care Team Providers Care Overhead Garage Door Hanger Name Role Phone Kat Jimenez Primary Care Provider Encounter Details Date Type Department Care Team (Late st Contact Info) Description 05/05/2021 MyChart Message Enc [facility] Medical Group Family & Internal Medicine [facility] [address] [place] [address] Kat Jimenez FNP [address] [place] [address] RE: Referral Request Social History Tobacco Use Types Packs/Day Years [...] have Coronavirus / COVID-19? No / Unsure 04/21/2021 3:11 PM CDT documented as of this encounter Plan of Treatment Upcoming Encounters Date Type Department Care Team (Late st Contact Info) Description 04/17/2025 9:00 AM CDT Office Visit [facility] Medical [facility] - [place] [address] [facility], 2nd [place] [address] Deny Rodriguez, DPOlayinka [address] [place] [address] 05/28/2025 10:40 AM CDT Office Visit [facility] Multispecialty Care - [facility] [address] [facility], [address] [place] [address] Jose Vaughn MD 3 [place] [address] documented as of this encounter Visit Diagnoses Not on filedocumented in this encounter Additional Health Concerns Infection Onset Date Last Indicated Resolved Time COVID-19 Rule Out 05/10/2021 05/10/2021 05/12/2021 12:30 AM CDT Assessment Noted Time PHQ-9 Depression Total Score: 25 021 3:00 PM CDT documented as of this encounter Care Teams Overhead Garage Door Hanger Relationship Specialty Start Date End Date Kat Jimenez FNP [address] [place] [address] PCP - General Nurse Practitioner Family 02/11/21 documented as of this encounter
--- OUTSIDE RECORDS SUMMARY | 2025-03-21 16:47 | XMS_ITS | Encounter Summary ---
Author Organization [facility] Address [facility] [place] [address] Care Team Providers Care Real Estate Salesperson Name Role Phone Kat Jimenez Primary Care Provider [phone] Encounter Details Date Type Department Care Team (Late st Contact Info) Description 03/28/2021 MyChart Message Enc [facility] Medical Group Family & Internal Medicine [facility] [address] [place] [address] Kat Jimenez FNP [address] [place] [address] Referral Request Social History Tobacco Use Types [...] have Coronavirus / COVID-19? No / Unsure 03/16/2021 2:47 PM CDT documented as of this encounter Plan of Treatment Upcoming Encounters Date Type Department Care Team (Late st Contact Info) Description 04/17/2025 9:00 AM CDT Office Visit [facility] - [place] [address] [facility], 2nd [place] [address] Deny Rodriguez, DPM [address] [place] [address] 05/28/2025 10:40 AM CDT Office Visit [facility] Multispecialty Care - [facility] [address] [facility], [address] [place] [address] Jose Vaughn MD [address] [place] [address] documented as of this encounter Visit Diagnoses Not on filedocumented in this encounter Additional Health Concerns Infection Onset Date Last Indicated Resolved Time COVID-19 Rule Out 05/10/2021 05/10/2021 05/12/2021 12:30 AM CDT Assessment Noted Time PHQ-9 Depression Total Score: 25 021 3:00 PM CDT documented as of this encounter Care Teams Real Estate Salesperson Relationship Specialty Start Date End Date Kat Jimenez FNP [address] [place] [address] PCP - General Nurse Practitioner Family 02/11/21 documented as of this encounter
--- OUTSIDE RECORDS SUMMARY | 2025-03-21 16:47 | XMS_ITS | Encounter Summary ---
Author Organization [facility] Address [address] [place] [address] Care Team Providers Care Adhesive Sprayer Name Role Phone Juliann Ambrosio MD Primary Care Provider [phone] Kat Jimenez Primary Care Provider [phone] Encounter Details Date Type Department Care Team (Late Contact Info) Description 02/02/2019 Abstract [facility] CONVERSION [address] [place] [address] [place] [address] , Generic Conversion, Social History Tobacco Use Types Packs/Day Years Used Date Smoking Tobacco: Smoker, Current Status Unknown Comments Unknown Sex and Gender Information Value Date Recorded Sex Assigned at Female 12/12/2024 2:30 PM CDT Legal Sex Female 9:29 PM CDT Gender Identity Not on file Sexual Orientation Not on file documented as of this encounter Plan of Treatment Upcoming Encounters Date Type Department Care Team (Late Contact Info) Description 04/17/2025 9:00 AM CDT Office Visit [facility] Medical [facility] Specialists - [address], 2nd [place] [address] Deny Rodriguez DPM [address] [place], [place] [phone] 05/28/2025 10:40 AM CDT Office Visit [facility] Medical [facility] Multispecialty Care - [address], [address] [place] [address] Jose Vaughn MD [address] [place] [address] documented as of this encounter Visit Diagnoses Not on filedocumented in this encounter Additional Health Concerns Infection Onset Date Last Indicated Resolved Time COVID-19 Rule Out 05/10/2021 05/10/2021 05/12/2021 12:30 AM CDT documented as of this encounter Care Teams Adhesive Sprayer Relationship Specialty Start Date End Date Juliann Ambrosio MD PCP - General INTERNAL MEDICINE 12/29/20 02/10/21 Kat Jimenez FNP [address] [place] [address] PCP - General Nurse Practitioner Family 02/11/21 documented as of this encounter
--- OUTSIDE RECORDS SUMMARY | 2025-03-21 16:47 | XMS_ITS | Encounter Summary ---
Author Organization [facility] Address [facility] [place] [address] Care Team Providers Care Blower Feeder Dyed Raw Stock Name Role Phone Kat Jimenez Primary Care Provider [phone] Encounter Details Date Type Department Care Team (Late st Contact Info) Description 10/25/2021 MyChart Message Enc [facility] Medical Group Family & Internal Medicine [facility] [address] [place] [address] Kat Jimenez FNP [address] [place], [place] [id number] [place] Social History Tobacco Use Types Packs/Day Years [...] please move on to questions 3-9 6 10/29/2021 Comments No Sex and Gender Information Value Date Recorded Sex Assigned at Female 12/12/2024 2:30 PM CDT Legal Sex Female 9:29 PM CDT Gender Identity Not on file Sexual Orientation Not on file COVID-19 Exposure Response Date Recorded In the last 10 days, have yo u been in contact with someone who was confirmed or suspected to have Coronavirus/COVID-19? No / Unsure 10/25/2021 12:46 PM SEAMLESS HOSIERY KNITTER documented as of this encounter Plan of Treatment Upcoming Encounters Date Type Department Care Team (Late st Contact Info) Description 04/17/2025 9:00 AM CDT Office Visit [facility] Medical [facility] - [place] [address] [place] [address], 2nd [place] [address] Deny Rodriguez, LAURIE [address] [place] [address] 05/28/2025 10:40 AM CDT Office Visit [facility] Multispecialty Care - [address], [address] [place] [address] Jose Vaughn MD 3 [place] [address] documented as of this encounter Visit Diagnoses Not on filedocumented in this encounter Additional Health Concerns Assessment Noted Time PHQ-9 Depression Total Score: 25 021 3:00 PM CDT documented as of this encounter Care Teams Blower Feeder Dyed Raw Stock Relationship Specialty Start Date End Date Kat Jimenez FNP [address] [place] [address] PCP - General Nurse Practitioner Family 02/11/21 documented as of this encounter
--- OUTSIDE RECORDS SUMMARY | 2025-03-21 16:47 | XMS_ITS | Encounter Summary ---
Author Organization [facility] Address [facility] [place] [address] Care Team Providers Care Sorting Machine Operator Name Role Phone Kat Jimenez RAYMUNDO Primary Care Provider [phone] Encounter Details Date Type Department Care Team (Late Contact Info) Description 07/06/2023 MyChart Message Enc [facility] Medical [facility] Family & Internal Medicine [address] [address] [place], [facility] Provider Referal Social History Tobacco Use Types Packs/Day Years Used Date Smoking Tobacco: Former Cigarettes 0.5 20 0 08/30/1999 - 08/30/2019 Passive Smoke Exposure: Past Smokeless Tobacco: Never Comments:Stopped in 2019 Alcohol Use Standard Drinks/Week Comments Not Currently [...] Answer Date Recorded Patient Health Questionnaire-2 Score 6 02/22/2023 Comments No Sex and Gender Information Value Date Recorded Sex Assigned at Female 12/12/2024 2:30 PM CDT Legal Sex Female 9:29 PM CDT Gender Identity Not on file Sexual Orientation Not on file documented as of this encounter Plan of Treatment Upcoming Encounters Date Type Department Care Team (Late Contact Info) Description 04/17/2025 9:00 AM CDT Office Visit [facility] - [place] [address] [facility], 2nd [place] [address] Deny Rodriguez, LAURIE [address] [place] [address] 05/28/2025 10:40 AM CDT Office Visit [facility] Multispecialty Care - [facility] [address] [facility], [address] [place] [address] Jose Vaughn MD 3 [place] [address] documented as of this encounter Visit Diagnoses Not on filedocumented in this encounter Additional Health Concerns Assessment Noted Time PHQ-9 Depression Total Score: 25 023 2:25 PM CDT documented as of this encounter Care Teams Sorting Machine Operator Relationship Specialty Start Date End Date Kat Jimenez FNP [address] [place] [address] PCP - General Nurse Practitioner Family 02/11/21 documented as of this encounter
--- OUTSIDE RECORDS SUMMARY | 2025-03-21 16:47 | XMS_ITS | Encounter Summary ---
Author Organization [facility] Address [facility] [place] [address] Care Team Providers Care Outpatient Dietitian Name Role Phone Kat Jimenez Primary Care Provider [phone] Encounter Details Date Type Department Care Team (Late st Contact Info) Description 07/25/2022 MyChart Message Enc [facility] Medical Group Family & Internal Medicine [facility] [address] [place] [address] Kat Jimenez FNP [address] [place], [place] [id number] Pre-authorization Social History Tobacco Use Types Packs/Day Years [...] 3, please move on to questions 3-9 0 11/25/2021 Comments No Sex and Gender Information Value Date Recorded Sex Assigned at Female 12/12/2024 2:30 PM CDT Legal Sex Female 9:29 PM CDT Gender Identity Not on file Sexual Orientation Not on file COVID-19 Exposure Response Date Recorded In the last 10 days, have yo u been in contact with someone who was confirmed or suspected to have Coronavirus/COVID-19? No / Unsure 07/13/2022 2:24 PM REFORMATORY ATTENDANT documented as of this encounter Plan of Treatment Upcoming Encounters Date Type Department Care Team (Late st Contact Info) Description 04/17/2025 9:00 AM CDT Office Visit [facility] Medical [facility] Specialists - [address], 2nd [place] [address] Deny Rodriguez, LAURIE [address] [place] [address] 05/28/2025 10:40 AM CDT Office Visit [facility] Multispecialty Care - [facility] 3 [facility], [address] [place] [address] Joes Vaughn MD 3 [place] [address] documented as of this encounter Visit Diagnoses Not on filedocumented in this encounter Additional Health Concerns Assessment Noted Time PHQ-9 Depression Total Score: 0 11/26/19 22 2:34 PM CDT documented as of this encounter Care Teams Outpatient Dietitian Relationship Specialty Start Date End Date Kat Jimenez FNP [address] [place] [address] PCP - General Nurse Practitioner Family 02/11/21 documented as of this encounter
--- OUTSIDE RECORDS SUMMARY | 2025-03-21 16:47 | XMS_ITS | Encounter Summary ---
Author Organization [facility] Address [facility] [place] [address] Care Team Providers Care Glass Artist Name Role Phone Kat Jimenez Primary Care Provider [phone] Encounter Details Date Type Department Care Team (Late st Contact Info) Description 12/19/2022 MyChart Message Enc [facility] Medical Group Family & Internal Medicine [facility] [address] [place] [address] Kat Jimenez FNP [address] [place] [address] Referral to orthopedic doctor Social History Tobacco Use Types Packs/Day Years [...] suspected to have Coronavirus/COVID-19? No / Unsure 11/23/2022 2:01 PM CDT documented as of this encounter Plan of Treatment Upcoming Encounters Date Type Department Care Team (Late st Contact Info) Description 04/17/2025 9:00 AM CDT Office Visit [facility] Medical [facility] - [place] [address] [place] [address], 2nd [place] [address] Deny Rodriguez, LAURIE [address] [place] [address] 05/28/2025 10:40 AM CDT Office Visit [facility] Multispecialty Care - [address], [address] [place] [address] Jose Vaughn MD 3 [place] [address] documented as of this encounter Visit Diagnoses Not on filedocumented in this encounter Additional Health Concerns Assessment Noted Time PHQ-9 Depression Total Score: 0 11/26/19 22 2:34 PM CDT documented as of this encounter Care Teams Glass Artist Relationship Specialty Start Date End Date Kat Jimenez FNP [address] [place] [address] PCP - General Nurse Practitioner Family 02/11/21 documented as of this encounter
--- OUTSIDE RECORDS SUMMARY | 2025-03-21 16:47 | XMS_ITS | Encounter Summary ---
Author Organization [facility] Address [facility] [place] [address] Care Team Providers Care Cone Classifier Tender Name Role Phone Kat Jimenez Primary Care Provider [phone] Encounter Details Date Type Department Care Team (Late st Contact Info) Description 10/31/2021 MyChart Message Enc [facility] Medical Group Family & Internal Medicine [facility] [address] [place] [address] Kat Jimenez FNP [address] [place] [address] Tylenol with codeine Social History Tobacco Use Types Packs/Day Years [...] suspected to have Coronavirus/COVID-19? No / Unsure 10/29/2021 1:59 PM FILM NUMBERER documented as of this encounter Progress Notes * Angle Andrade MA - 11/09/2021 8:58 AM CDT Prior auth request on your desk to be signed. * RAYMUNDO Orellana - 11/08/2021 1:11 PM CDT This is for the hydrocodone? Do we need a PA? This is for you guys. * RAYMUNDO Orellana - 11/03/2021 2:10 PM CST Medication sent to pharmacy. Please advise her that I was out of the office and just got this message. NUMBERER documented in this encounter Plan of Treatment Upcoming Encounters Date Type Department Care Team (Late st Contact Info) Description 04/17/2025 9:00 AM CDT Office Visit [facility] Medical Group Foot & Ankle Specialists - [address], 2nd [place] [address] Deny Rodriguez DPM [address] [place] [address] 05/28/2025 10:40 AM CDT Office Visit [facility] Medical Group Multispecialty Care - [address], [address] [place] [address] Jose Vaughn MD 3 [place] [address] documented as of this encounter Visit Diagnoses Not on filedocumented in this encounter Additional Health Concerns Assessment Noted Time PHQ-9 Depression Total Score: 25 022 2:24 PM FILM NUMBERER documented as of this encounter Care Teams Cone Classifier Tender Relationship Specialty Start Date End Date Kat Jimenez FNP [address] [place] [address] PCP - General Nurse Practitioner Family 02/11/21 documented as of this encounter
--- OUTSIDE RECORDS SUMMARY | 2025-03-21 16:47 | XMS_ITS | Encounter Summary ---
Author Organization [facility] Address [address] [place] [address] Care Team Providers Care Associate Professor Of Geology Name Role Phone Kat Jimenez RAYMUNDO Primary Care Provider [phone] Encounter Details Date Type Department Care Team (Late st Contact Info) Description 09/16/2022 MyChart Message Enc [facility] Medical Group Multispecialty Care - [facility] [address] [facility], [address] [place] [address] Jerson Jacques MD 3 [place] [address] Dermal implants /MRI Social History Tobacco Use Types Packs/Day Years [...] Coronavirus/COVID-19? No / Unsure 09/19/2022 1:02 PM SPECIAL EDUCATION TEACHERS documented as of this encounter Plan of Treatment Upcoming Encounters Date Type Department Care Team (Late st Contact Info) Description 04/17/2025 9:00 AM CDT Office Visit [facility] Foot [facility] Ankle Specialists - [address], 2nd [place] [address] Deny Rodriguez DPM [address] [place] [address] 05/28/2025 10:40 AM CDT Office Visit [facility] Multispecialty Care - [facility] [address] [facility], [address] [place] [address] Jose Vaughn MD 3 [place] [address] documented as of this encounter Visit Diagnoses Not on filedocumented in this encounter Additional Health Concerns Assessment Noted Time PHQ-9 Depression Total Score: 0 11/26/19 22 2:34 PM CDT documented as of this encounter Care Teams Associate Professor Of Geology Relationship Specialty Start Date End Date Kat Jimenez FNP [address] [place] [address] PCP - General Nurse Practitioner Family 02/11/21 documented as of this encounter
--- OUTSIDE RECORDS SUMMARY | 2025-03-21 16:47 | XMS_ITS | Encounter Summary ---
Author Organization [facility] Address [facility] [place] [address] Care Team Providers Care Scientist Electronics Name Role Phone Kat Jimenez Primary Care Provider [phone] Encounter Details Date Type Department Care Team (Late st Contact Info) Description 11/28/2022 MyChart Message Enc [facility] Medical Group Family & Internal Medicine [facility] [address] [place] [address] Kat Jimenez FNP [address] [place] [address] Still no hydrocodone vraylar Social History Tobacco Use Types Packs/Day Years [...] Recorded In the last 10 days, have christa u been in contact with someone who was confirmed or suspected to have Coronavirus/COVID-19? No / Unsure 11/23/2022 2:01 PM CDT documented as of this encounter Progress Notes * Melissa Hayes MA - 11/29/2022 12:03 PM CDT Catrina, We apologize for the delay. We are working on the prior auths for your medications. You are also due for an appointment. Please call the office to schedule. * Melissa Hayes MA - 11/29/2022 12:03 PM CDTFrom: Catrina Carmen To: Kat Jimenez Sent: 11/28/2022 2:11 PM CDT Subject: Still no hydrocodone vraylar If someone could actually refill my meds and do prior authorization would be awesome I need prior authorization for my vraylar and now my celecoxib that I ve been on for over a year I mean I don't know what is going on but I feel like no one is refilling my meds on time or doing prior authorization documented in this encounter Plan of Treatment Upcoming Encounters Date Type Department Care Team (Late st Contact Info) Description 04/17/2025 9:00 AM CDT Office Visit [facility] Medical Group Foot & Ankle Specialists - [address], 2nd [place] [address] Deny Rodriguez DPM [address] [place], [place] [address] 05/28/2025 10:40 AM CDT Office Visit [facility] Medical Group Multispecialty Care - [address], [address] [place] [address] Jose Vaughn MD [address] [place] [address] [place] [address] documented as of this encounter Visit Diagnoses Not on filedocumented in this encounter Additional Health Concerns Assessment Noted Time PHQ-9 Depression Total Score: 0 11/26/19 22 2:34 PM CDT documented as of this encounter Care Teams Scientist Electronics Relationship Specialty Start Date End Date Kat Jimenez FNP [address] [place] [id number] PCP - General Nurse Practitioner Family 02/11/21 documented as of this encounter
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
--- OUTSIDE RECORDS SUMMARY | 2025-03-21 16:47 | XMS_ITS | Referral Summary ---
Author Organization [facility] Address [place] [address] Care Team Providers Care Gang Hemstitching Machine Operator Name Role Phone Kat Jimenez NP Primary Care Provider [phone] Kat Jimenez NP Unavailable [phone] Kat Jimenez NP Unavailable [phone] Allergies Active Allergy Reactions Criticality Noted Date [...] ears 07/27/20212020 Otalgia of both ears 07/27/2021 TMJ arthralgia 07/27/2021 08/03/2021 Social History Tobacco Use Types Packs/Day Years [...] on file Legal Sex Female 8:11 AM SUPERVISOR WALL MIRROR DEPARTMENT Gender Identity Not on file Sexual Orientation Not on file Last Filed Vital Signs Vital Sign Reading Time Taken Comments Blood Pressure 139/100 08/24/2021 3:04 PM SUPERVISOR WALL MIRROR DEPARTMENT Pulse 91 08/24/2021 3:04 PM SUPERVISOR WALL MIRROR DEPARTMENT Temperature 36.5 C (97.7 F) 08/24/2021 3:04 PM SUPERVISOR WALL MIRROR DEPARTMENT Respiratory Rate 20 08/24/2021 3:04 PM SUPERVISOR WALL MIRROR DEPARTMENT Oxygen Saturation 98% 08/24/2021 3:04 PM SUPERVISOR WALL MIRROR DEPARTMENT Inhaled Oxygen Concentration - - Weight 103.4 kg (228 lb) 08/24/2021 3:04 PM SUPERVISOR WALL MIRROR DEPARTMENT Height 160 cm (5' 3) 08/03/2021 3:17 PM SUPERVISOR WALL MIRROR DEPARTMENT Body Mass Index 40.39 08/03/2021 3:17 PM SUPERVISOR WALL MIRROR DEPARTMENT Plan of Treatment Not on file Goals [...] strategies and compensatory methods as needed Insurance [id number] Care Teams Gang Hemstitching Machine Operator Relationship Specialty Start Date End Date Kat Jimenez NP [address] [place] [address] PCP - General Nurse Practitioner 05/11/21 Kat Jimenez NP [address] [place] [address] Nurse Practitioner 05/11/21 Kat Jimenez NP [address] [place] [address] Nurse Practitioner Nurse Practitioner 04/02/21
--- OUTSIDE RECORDS SUMMARY | 2025-03-21 16:47 | XMS_ITS | Clinical Summary ---
Author Organization [facility] Address [address] [place] [address] Care Team Providers Care Counter Intelligence Agent Name Role Phone Kat Jimenez [employer] Primary Care Provider [phone] Source Comments [facility],non-owned Affiliates and Associated Physician Practices is amultiple site organization consisting of ambulatory clinics and hospital sitesin [place], [place], [place] and [place]. This disclosure is being madepursuant to the Care Everywhere program and may not contain all information available regarding this patient. Last updated 18.[facility] Allergies Active Allergy Reactions Criticality Noted Date Comments Amoxicillin Itching 09/24/2024 Bupropion Itching 09/24/2024 Buspirone Itching 09/24/2024 Gabapentin Itching 09/24/2024 Ketorolac Itching 09/24/2024 Latex Itching 09/24/2024 Quetiapine Unknown 09/24/2024 Tramadol Itching 09/24/2024 Medications * Be aware that medications may not be up to date on this document. Alwaysverify current medications with the patient. albuterol HFA (Proventil; Ventolin; Proair) 108 (90 Base) MCG/ACT inhaler Inhale 2 (two) puffs by mouth every 6 hours as needed Active Atogepant 60 MG TABS Take 1 (one) tablet by mouth once daily 4 Active celecoxib (CeleBREX) 200 MG capsule Take 1 (one) capsule by mouth once daily 4 Active clonazePAM (KlonoPIN) 1 MG tablet Take 1 (one) tablet by mouth 3 times daily as needed 5 Active DULoxetine (Cymbalta) 60 MG capsule Take 1 (one) capsule by mouth 2 times daily 5 Active vitamin D, ergocalciferol , (Drisdol) 1.25 MG (24062 UT) capsule Take 1 (one) capsule by mouth every 7 days 4 Active folic acid (Folvite) 1 MG tablet Take 1 (one) tablet by mouth once daily 3 Active methocarbamol (Robaxin) 750 MG tablet Take 1 (one) tablet to 2 (two) tablets by mouth 3 times daily as needed 5 Active varenicline (Chantix) 1 MG tablet Take 1 (one) tablet by mouth 2 times daily 5 Active sertraline (Zoloft) 100 MG tablet Take 2 (two) tablets by mouth once daily 5 Active cariprazine (Vraylar) 3 MG capsule Take 1 (one) capsule by mouth once daily 5 Active HYDROcodone-ac etaminophen (Hamilton) 10-325 MG tablet Take 1 (one) tablet by mouth every 8 hours as needed for Pain 5 Active budesonide-for moterol (Symbicort) 160-4.5 MCG/ACT inhaler Inhale 2 (two) puffs by mouth 2 times daily 4 Active cyanocobalamin (Vitamin B-12) 100 MCG tablet Take 1 (one) tablet by mouth once daily Active magnesium oxide (Mag-Ox) 400 MG tablet Take 1 (one) tablet by mouth once daily Active vitamin D3 (Cholecalcifer ol) 25 MCG (1000 UNITS) tablet Take 1 (one) tablet by mouth once daily Active multivitamin daily tablet Take 1 (one) tablet by mouth daily with food Active tamsulosin (Flomax) 0.4 MG capsule Take 1 (one) capsule by mouth once daily At the same time every day after a meal. 30 capsule 5 Active solifenacin (Vesicare) 5 MG tablet Take 1 (one) tablet by mouth once daily 30 tablet 5 Active acetaminophen (Tylenol) 500 MG tablet Take 1 (one) tablet by mouth every 6 hours as needed for Fever or Pain Maximum allowable Acetaminophen amount = 4 Grams (4000 mg) / 24 hours. Active Active Problems Problem Noted Date Diagnosed Date Kidney stone 09/24/2024 Resolved Problems Problem Noted Date Diagnosed Date Resolved Date UTI (urinary tract infection) 09/25/2024 10/09/2024 Social History Tobacco Use Types Packs/Day Years Used Date Smoking Tobacco: Every Day Cigarettes 0.5 25.6 Started: 08/1999 Smokeless Tobacco: Never Tobacco Cessation:Ready to Q uit: Not Asked; Counseling Given: Not Answered Alcohol Use Standard Drinks/Week Comments Not Currently 0 (1 standard drink = 0.6 oz pur e alcohol) Comments No Sex and Gender Information Value Date Recorded Sex Assigned at Not on file Legal Sex Female 9:49 AM [employer] Gender Identity Not on file Sexual Orientation Not on file Last Filed Vital Signs Vital Sign Reading Time Taken Comments Blood Pressure 123/74 10/08/2024 3:00 PM [employer] Pulse 85 10/08/2024 3:00 PM [employer] Temperature 36.6 C (97.9 F) 10/08/2024 2:36 PM [employer] Respiratory Rate 19 10/08/2024 3:00 PM [employer] Oxygen Saturation 92% 10/08/2024 3:00 PM [employer] Inhaled Oxygen Concentration - - Weight 99.9 kg (220 lb 3.2 oz) 10/08/2024 11:11 AM [employer] Height 162.6 cm (5' 4) 10/08/2024 11:11 AM [employer] Body Mass Index 37.8 10/08/2024 11:11 AM [employer] Plan of Treatment Health Maintenance Due Date Last Done Comments LIPID TESTING 1983 HIV SCREENING 12/01/1998 HEPATITIS C SCREENING 11/27/2001 DTAP/TDAP/TD VACCINES (1 - Tdap) 12/01/2002 HEPATITIS B VACCINE (1 of 3 - 19+ 3-dose series) 12/01/2002 PNEUMOCOCCAL VACCINE (1 of 2 - PCV) 12/01/2002 HPV VACCINE (1 - 3-dose SCDM series) 12/01/2010 PAP SMEAR 06/03/2024 06/03/2021, 06/03/2021 DEPRESSION SCREENING 08/28/2024 INFLUENZA VACCINE (#1) 2025 , 08/10/2023, 06/03/2021 MAMMOGRAM 05/07/2026 05/07/2024, 05/07/2024 ZOSTER VACCINE (1 of 2) 12/01/2033 COVID-19 VACCINE Completed 07/16/2024, 08/2021, 05/08/2021, Additional history exists HIB VACCINE Aged Out No longer eligi ble based on patient's age to complete this topic MENINGOCOCCAL (Group B) VACCINE SHARED DECISION-MAKING Aged Out No longer eligible based on patient's age to complete this topic MENINGOCOCCAL GROUPS A/C/Y/W VACCINE Aged Out No longer eligible based on patient's age to complete this topic Medical Devices Implanted Type Area Turner Off Device Identifier Shelf Expiration Date Model / Serial / Lot Stent Uret 5fr 24cm 2 Pgtl Crv 2 Drmtr Implanted:Qty : 1 on 09/24/2024 by Jocelyn Cervantes DO at [facility] Right: [employer] Sc[employer]ed [id number] 03/20/2027 [id number] 20 / / [id number] Explanted Type Area Turner Off Device Identifier Shelf Expiration Date Model / Serial / Lot Stent Uret 6fr 22cm Sft Tria Explanted:Qty : 1 on 09/24/2024 by Jocelyn Cervantes DO at [facility] Right: [employer] Trung [id number] 02/08/2027 [id number] 10 / / [id number] [place] [address] [place] [address] [facility] Advance Directives * Full Code (Latest Code Status on File) Date Activated Date Inactivated Comments 09/24/2024 5:31 AM 09/25/2024 1:11 PM Care Teams Counter Intelligence Agent Relationship Specialty Start Date End Date Kat Jimenez APRN-HAZEL [address] [place] [id number] PCP - General 08/10/21
--- OUTSIDE RECORDS SUMMARY | 2025-03-21 16:47 | XMS_ITS | Encounter Summary ---
Author Organization [facility] Address [facility] [place] [address] Care Team Providers Care Shop Assistant Name Role Phone Kat Jimenez Primary Care Provider [phone] Encounter Details Date Type Department Care Team (Late st Contact Info) Description 05/01/2021 MyChart Message Enc [facility] Medical Group Family & Internal Medicine [facility] [address] [place] [address] Kat Jimenez FNP [address] [place] [address] RE: FW: Other Social History Tobacco Use Types Packs/Day [...] Description 04/17/2025 9:00 AM CDT Office Visit [facility] Medical [facility] [place] [address], [address]nd [place] [phone] Deny Rodriguez, DPOlayinka [address] [place] [address] 05/28/2025 10:40 AM CDT Office Visit [facility] - [facility] [address] [facility] [address], [address] [place] [address] Jose Vaughn MD [address] [place] [address] documented as of this encounter Visit Diagnoses Not on filedocumented in this encounter Additional Health Concerns Infection Onset Date Last Indicated Resolved Time COVID-19 Rule Out 05/10/2021 05/10/2021 05/12/2021 12:30 AM CDT Assessment Noted Time PHQ-9 Depression Total Score: 25 021 3:00 PM CDT documented as of this encounter Care Teams Shop Assistant Relationship Specialty Start Date End Date Kat Jimenez FNP [address] [place] [id number] PCP - General Nurse Practitioner Family 02/11/21 documented as of this encounter
--- OUTSIDE RECORDS SUMMARY | 2025-03-21 16:48 | XMS_ITS | Encounter Summary ---
Author Organization [facility] Address [address] [place] [address] Care Team Providers Care Pullman Clerk Name Role Phone Kat Jimenez RAYMUNDO Primary Care Provider [phone] Encounter Details Date Type Department Care Team (Late st Contact Info) Description 06/04/2021 Snapsheet Message [employer] [facility] [address] [place] [id number] [facility] Provider Re: Pt Amendment Social History Tobacco Use Types Packs/Day Years [...] have Coronavirus / COVID-19? No / Unsure 06/03/2021 9:08 AM CDT documented as of this encounter Plan of Treatment Upcoming Encounters Date Type Department Care Team (Late st Contact Info) Description 04/17/2025 9:00 AM CDT Office Visit [facility] Medical [facility] - [address] [place] [address] Deny Rodriguez, DPOlayinka [address] [place] [address] 05/28/2025 10:40 AM CDT Office Visit [facility] - [facility] [address] [facility], [address] [place] [address] Jose Vaughn MD [address] [place] [address] documented as of this encounter Visit Diagnoses Not on filedocumented in this encounter Additional Health Concerns Assessment Noted Time PHQ-9 Depression Total Score: 25 021 3:00 PM CDT documented as of this encounter Care Teams Pullman Clerk Relationship Specialty Start Date End Date Kat Jimenez FNP [address] [place] [id number] PCP - General Nurse Practitioner Family 02/11/21 documented as of this encounter
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
--- OUTSIDE RECORDS SUMMARY | 2025-03-21 16:48 | XMS_ITS | Encounter Summary ---
Author Organization [facility] Address [facility] [place] [address] Care Team Providers Care Procedure Writer Name Role Phone Kat Jimenez Primary Care Provider [phone] Encounter Details Date Type Department Care Team (Late st Contact Info) Description 06/05/2021 MyCSayNowt Message Enc [facility] Medical Group Family & Internal Medicine [facility] [address] [place] [address] Kat Jimenez FNP [address] [place] [address] RE: FW: Question Social History [...] Description 04/17/2025 9:00 AM CDT Office Visit [facility] Medical [facility] - [address] 2nd [place] [phone] Deny Rodriguez, LAURIE [address] [place] [address] 05/28/2025 10:40 AM CDT Office Visit [facility] Multispecialty Care - [facility] [address] [facility], [address] [place] [address] Jose Vaughn MD [address] [place] [address] documented as of this encounter Visit Diagnoses Not on filedocumented in this encounter Additional Health Concerns Assessment Noted Time PHQ-9 Depression Total Score: 25 02/11/ 021 3:00 PM CDT documented as of this encounter Care Teams Procedure Writer Relationship Specialty Start Date End Date Kat Jimenez FNP [address] [place] [id number] PCP - General Nurse Practitioner Family 02/11/21 documented as of this encounter
--- OUTSIDE RECORDS SUMMARY | 2025-03-21 16:48 | XMS_ITS | Encounter Summary ---
Author Organization [facility] Address [facility] [place] [address] Care Team Providers Care Cashier Associate Name Role Phone Kat Jimenez Primary Care Provider Encounter Details Date Type Department Care Team (Late st Contact Info) Description 07/25/2022 MyChart Message Enc [facility] Medical Group Family & Internal Medicine [facility] [address] [place] [address] Kat Jimenez FNP [address] [place] [address] Severe pain Social History Tobacco Use Types Packs/Day Years [...] Coronavirus/COVID-19? No / Unsure 07/13/2022 2:24 PM EXPLOSIVE MAN documented as of this encounter Plan of Treatment Upcoming Encounters Date Type Department Care Team (Late st Contact Info) Description 04/17/2025 9:00 AM CDT Office Visit [facility] Medical [facility] - [place] [address] [place] [address], 2nd [place] [address] Deny Rodriguez, LAURIE [address] [place] [address] 05/28/2025 10:40 AM CDT Office Visit [facility] Multispecialty Care - [address], [address] [place] [address] Jose Vaughn MD [address] [place] [address] documented as of this encounter Visit Diagnoses Not on filedocumented in this encounter Additional Health Concerns Assessment Noted Time PHQ-9 Depression Total Score: 0 11/26/19 22 2:34 PM CDT documented as of this encounter Care Teams Cashier Associate Relationship Specialty Start Date End Date Kat Jimenez FNP [address] [place] [id number] PCP - General Nurse Practitioner Family 02/11/21 documented as of this encounter
--- OUTSIDE RECORDS SUMMARY | 2025-03-21 16:48 | XMS_ITS | Encounter Summary ---
Author Organization [facility] Address [facility] [place] [address] Care Team Providers Care Push Connector Assembler Name Role Phone Kat Jimenez Primary Care Provider [phone] Encounter Details Date Type Department Care Team (Late st Contact Info) Description 05/04/2024 MyChart Message Enc [facility] Medical Group Family & Internal Medicine [facility] [address] [place] [address] Kat Jimenez FNP [address] [place], [place] [phone] Meds pain Social History Tobacco Use Types Packs/Day [...] Answer Date Recorded Patient Health Questionnaire-2 Score 3 04/11/2024 Comments No Sex and Gender Information Value Date Recorded Sex Assigned at Female 12/12/2024 2:30 PM CDT Legal Sex Female 9:29 PM CDT Gender Identity Not on file Sexual Orientation Not on file documented as of this encounter Progress Notes * RAYMUNDO Orellana - 05/06/2024 12:38 PM CDT We can fill it when it is out. She was suppose to get 100 tabs documented in this encounter Plan of Treatment Upcoming Encounters Date Type Department Care Team (Late st Contact Info) Description 04/17/2025 9:00 AM CDT Office Visit [facility] Medical Group [facility] [place] [address] [facility], 2nd [place] [phone] Deny Rodriguez, DPOlayinka [address] [place] [address] 05/28/2025 10:40 AM CDT Office Visit [facility] Multispecialty Care - [facility] [address] [facility], [address] [place] [address] Jose Vaughn MD 3 [place] [address] documented as of this encounter Visit Diagnoses Not on filedocumented in this encounter Additional Health Concerns Assessment Noted Time PHQ-9 Depression Total Score: 10 024 1:37 PM CDT documented as of this encounter Care Teams Push Connector Assembler Relationship Specialty Start Date End Date Kat Jimenez FNP [address] [place] [address] PCP - General Nurse Practitioner Family 02/11/21 documented as of this encounter
--- OUTSIDE RECORDS SUMMARY | 2025-03-21 16:48 | XMS_ITS | Encounter Summary ---
Author Organization [facility] Address [facility] [place] [address] Care Team Providers Care Bull Chain Operator Name Role Phone Kat Jimenez Primary Care Provider [phone] Encounter Details Date Type Department Care Team (Late st Contact Info) Description 10/06/2021 MyChart Message Enc [facility] Medical Group Family & Internal Medicine [facility] [address] [place] [address] Kat Jimenez FNP [address] [place], [place] [phone] Med refills Social History Tobacco Use Types Packs/Day Years [...] encounter Progress Notes * RAYMUNDO Orellana - 10/06/2021 8:59 PM CST We can try lyrica a long acting pain medication for nerve/fibromyalgia pain, if she would like. 75 mg daily for a couple weeks and then reevaluate her pain. Other than that, we will have to find a pain management to get her in. CULAR TECHNOLOGIST documented in this encounter Plan of Treatment Upcoming Encounters Date Type Department Care Team (Late st Contact Info) Description 04/17/2025 9:00 AM CDT Office Visit [facility] Medical [facility] - [address], 2nd [place] [address] Deny Rodriguez, DPM [address] [place] [address] 05/28/2025 10:40 AM CDT Office Visit [facility] Multispecialty Care - [facility] [address] [facility], [address] [place] [address] Jose Vaughn MD 3 [place] [address] documented as of this encounter Visit Diagnoses Not on filedocumented in this encounter Additional Health Concerns Assessment Noted Time PHQ-9 Depression Total Score: 25 021 3:00 PM CDT documented as of this encounter Care Teams Bull Chain Operator Relationship Specialty Start Date End Date Kat Jimenez FNP [address] [place] [address] PCP - General Nurse Practitioner Family 02/11/21 documented as of this encounter
--- OUTSIDE RECORDS SUMMARY | 2025-03-21 16:48 | XMS_ITS | Encounter Summary ---
Author Organization [facility] Address [facility] [place] [address] Care Team Providers Care Connie Cleaner Name Role Phone Kat Jimenez Primary Care Provider [phone] Encounter Details Date Type Department Care Team (Late st Contact Info) Description 05/31/2021 MyChart Message Enc [facility] Medical Group Family & Internal Medicine [facility] [address] [place] [address] Kat Jimenez FNP [address] [place] [address] RE: Question Social History Tobacco Use Types Packs/Day [...] Description 04/17/2025 9:00 AM CDT Office Visit [facility] - [place] [address] [facility], 2nd [place] [address] Deny Rodriguez, DPOlayinka [address] [place] [address] 05/28/2025 10:40 AM CDT Office Visit [facility] Multispecialty Care - [facility] 3 [facility], [address] [place] [address] Jose Vaughn MD 3 [place] [address] documented as of this encounter Visit Diagnoses Not on filedocumented in this encounter Additional Health Concerns Assessment Noted Time PHQ-9 Depression Total Score: 25 02/11/ 021 3:00 PM CDT documented as of this encounter Care Teams Connie Cleaner Relationship Specialty Start Date End Date Kat Jimenez FNP [address] [place] [address] PCP - General Nurse Practitioner Family 02/11/21 documented as of this encounter
--- OUTSIDE RECORDS SUMMARY | 2025-03-21 16:48 | XMS_ITS | Encounter Summary ---
Author Organization [facility] Address [facility] [place] [address] Care Team Providers Care Credit Verifier Name Role Phone Kat Jimenez Primary Care Provider [phone] Encounter Details Date Type Department Care Team (Late st Contact Info) Description 02/22/2022 MyChart Message Enc [facility] Medical Group Family & Internal Medicine [facility] [address] [place] [address] Kat Jimenez FNP [address] [place] [address] Severe pain Social History Tobacco [...] In the last 10 days, have christa key been in contact with someone who was confirmed or suspected to have Coronavirus/COVID-19? No / Unsure 02/16/2022 1:55 PM CDT documented as of this encounter Progress Notes * RAYMUNDO Orellana - 02/22/2022 1:32 PM CDT I will send her out an increased dose of pain medication. We can try to see if they will get her insooner. I am not sure about the mental health provider. Is she still taking the vraylar? documented in this encounter Plan of Treatment Upcoming Encounters Date Type Department Care Team (Late st Contact Info) Description 04/17/2025 9:00 AM CDT Office Visit [facility] Medical Group [facility] - [address], 2nd [place] [address] Deny Rodriguez, LAURIE [address] [place] [address] 05/28/2025 10:40 AM CDT Office Visit [facility] Medical Group Multispecialty Care - [facility] [address] [facility], [address] [place] [address] Jose Vaughn MD 3 [place] [address] documented as of this encounter Visit Diagnoses Not on filedocumented in this encounter Additional Health Concerns Assessment Noted Time PHQ-9 Depression Total Score: 0 11/26/19 22 2:34 PM CDT documented as of this encounter Care Teams Credit Verifier Relationship Specialty Start Date End Date Kat Jimenez FNP [address] [place] [address] PCP - General Nurse Practitioner Family 6/17/21 documented as of this encounter
--- OUTSIDE RECORDS SUMMARY | 2025-03-21 16:48 | XMS_ITS | Encounter Summary ---
Author Organization [facility] Address [facility] [place] [address] Care Team Providers Care Machine Sewer Name Role Phone Kat Jimenez Primary Care Provider [phone] Encounter Details Date Type Department Care Team (Late st Contact Info) Description 07/25/2022 MyChart Message Enc [facility] Medical Group Family & Internal Medicine [facility] [address] [place] [address] Kat Jimenez FNP [address] [place], [place] [phone] Pre-authorization Social History Tobacco Use Types Packs/Day [...] Coronavirus/COVID-19? No / Unsure 07/13/2022 2:24 PM DIRECTOR TELECOMMUNICATIONS documented as of this encounter Plan of Treatment Upcoming Encounters Date Type Department Care Team (Late st Contact Info) Description 04/17/2025 9:00 AM CDT Office Visit [facility] Medical [facility] Foot [facility]le Specialists - [address], [address]nd [place] [address] Deny Rodriguez, LAURIE [address] [place] [address] 05/28/2025 10:40 AM CDT Office Visit [facility] Multispecialty Care - [facility] [address] [facility], [address] [place] [address] Jose Vaughn MD 3 [place] [address] documented as of this encounter Visit Diagnoses Not on filedocumented in this encounter Additional Health Concerns Assessment Noted Time PHQ-9 Depression Total Score: 0 11/26/19 22 2:34 PM CDT documented as of this encounter Care Teams Machine Sewer Relationship Specialty Start Date End Date Kat Jimenez FNP [address] [place] [address] PCP - General Nurse Practitioner Family 02/11/21 documented as of this encounter
--- NOTE | 2025-03-21 17:07 | ED.BACK ---
HPI - Back Pain/Injury General Chief Complaint: Back Pain/Injury Stated Complaint: low back pain Time Seen by Provider: 03/21/25 16:49 Source: patient Mode of arrival: ambulatory Limitations: no limitations History of Present Illness HPI Narrative: 39-year-old female with a history of bipolar disorder, COPD, chronic low back pain( lumbar spondylosis, L4 pars defect, anterolisthesis of L4 on L5, multiple discs bulge with foraminal and canal stenosis and facet joint osteoarthritis) is awaiting spinal surgery. She is unable to get surgery secondary to hers ongoing smoking and COPD. Today she bent forwards following which she developed acute low back pain. No radiation of the pain. No motor or sensory deficit of lower extremity. No bladder or bowel involvement. No perineal sensory loss. MD elicited complaint: back pain Pertinent past history: prior back pain Onset (ago): hour(s) ( Chronic low back pain with exacerbation 4 hours ago.) Timing: constant Similar Symptoms Previously: Yes Quality: aching Location: lumbar spine Radiation: none Exacerbating factors: movement Relieving factors: immobilization Associated symptoms: denies other symptoms Treatments prior to arrival: NSAIDS and prescription analgesics Related Data Home Medications ?Medication ?Instructions ?Recorded ?Confirmed ?Last Taken ?Type clonazepam 1 mg tablet 1 mg PO BID 05/12/20 06/12/24 06/12/24 History sertraline 100 mg tablet 200 mg PO DAILY 05/12/20 06/12/24 06/12/24 History atorvastatin 10 mg tablet 10 mg PO DAILY 06/16/22 06/12/24 06/12/24 History baclofen 20 mg tablet 20 mg PO TID PRN Pain 06/16/22 06/12/24 06/12/24 History celecoxib 200 mg capsule 200 mg PO DAILY 06/16/22 06/12/24 06/12/24 History duloxetine 60 mg capsule,delayed 60 mg PO DAILY 06/16/22 06/12/24 06/12/24 History release hydrocodone 10 mg-acetaminophen 1 tablet PO TID PRN Pain 06/16/22 06/12/24 06/12/24 History 325 mg tablet prazosin 1 mg capsule 2 mg PO HS 08/05/23 06/12/24 06/12/24 History albuterol sulfate 90 mcg/actuation 90 mcg inhalation PRN 06/12/24 06/12/24 06/12/24 History aerosol inhaler atogepant 60 mg tablet (Qulipta) 60 mg PO DAILY 06/12/24 06/12/24 06/12/24 History budesonide-formoterol HFA 160 2 puff inhalation DAILY 06/12/24 06/12/24 06/12/24 History mcg-4.5 mcg/actuation aerosol inhaler (Symbicort) cariprazine 3 mg capsule (Vraylar) 3 mg PO DAILY 06/12/24 06/12/24 06/12/24 History ergocalciferol (vitamin D2) 1,250 1,250 mcg PO DAILY 06/12/24 06/12/24 06/12/24 History mcg (50,000 unit) capsule methocarbamol 750 mg tablet 750 mg PO PRN 06/12/24 06/12/24 06/12/24 History Allergies Allergy/AdvReac Type Severity Reaction Status Date / Time amoxicillin (From Amoxil) Allergy Itching Verified 09/24/24 00:37 bupropion (From Wellbutrin) Allergy Itching Verified 09/24/24 00:37 buspirone Allergy Itching Verified 09/24/24 00:37 gabapentin Allergy Unknown Verified 09/24/24 00:37 ketorolac (From Toradol) Allergy Itching Verified 09/24/24 00:37 Latex, Natural Rubber Allergy Itching Verified 09/24/24 00:37 quetiapine (From Seroquel) Allergy Unknown Verified 09/24/24 00:37 tramadol Allergy Itching Verified 09/24/24 00:37 Review of Systems Review of Systems: All systems reviewed & are unremarkable except as noted in HPI and below Constitutional: Constitutional: Reports as per HPI and Reports no additional constitutional complaints Eyes: Eyes: Reports as per HPI and Reports no additional eye complaints ENT: Reports system reviewed and no additional complaints, except as documented and Reports as per HPI Cardiovascular: Cardiovascular: Reports as per HPI and Reports no additional cardiovascular complaints Respiratory: Respiratory: Reports as per HPI, Reports no additional respiratory complaints and Reports cough Gastrointestinal: Gastrointestinal: Reports as per HPI and Reports no additional gastrointestinal complaints Genitourinary: Genitourinary: Reports no additional female genitourinary complaints and Reports as per HPI Musculoskeletal: Musculoskeletal: Reports back pain Integumentary/Breasts: Skin/Breast: Reports system reviewed and no additional complaints, except as docu and Reports as per HPI Neurologic: Reports system reviewed and no additional complaints, except as documented and Reports as per HPI Psychiatric: Psychiatric: Reports no additional psychiatric complaints and Reports as per HPI Endocrine: Endocrine: Reports no additional endocrine complaints and Reports as per HPI Hematologic/Lymphatic: Hematologic/Lymphatic: Reports no additional hematologic/lymphatic complaints and Reports as per HPI Allergic/Immunologic: Allergic/Immunologic: Reports no additional allergic/immunologic complaints and Reports as per HPI [facility] Past Medical History Medical History Degenerative disc disease Bipolar disorder Asthma Surgical History Surgical History H/O oophorectomy H/O tubal ligation Hx of cholecystectomy History of appendectomy Social History Social History Smoking status: Current every day smoker Substance use: never Living arrangements: with family Exam Const: General: no acute distress Orientation/consciousness: patient oriented x3 Limitations: no limitations HENMT: Head: normal to inspection Ears: external ears normal Face/Nose/Sinus: Normal external nose present Face and sinus: normal facial exam Mouth: Yes Normal oral and palatal mucosa present Throat: posterior oropharynx normal Eyes: Conjunctivae: conjunctivae normal Pupils: Equal, round and reactive pupils present EOM: EOMs intact bilaterally Direct Ophthalmoscopy: no photophobia Neck: Neck: normal visual inspection, no lymphadenopathy and no meningeal signs Chest: Chest palpation & inspection: normal inspection of the chest Resp: Effort & Inspection: normal respiratory effort Auscultation: diminished lung sounds Cardio: Rate: regular rate Rhythm: regular rhythm GI: Auscultation: normal bowel sounds Other: No tenderness/ rigidity / rebound. : General: Yes no CVA tenderness Back/Spine/Pelvis: Back: no CVA tenderness Other: No spinal tenderness. SLR negative on both sides no motor or sensory deficit in the lower extremities Skin: General skin exam: normal color Rashes: no rashes Wounds: no wounds Neuro: General: patient oriented x3, moves all extremities, no meningeal signs, no focal motor deficits and CN's II-XI intact bilaterally Speech: normal speech Extrem: General: normal to inspection and no clubbing, cyanosis or edema Psych: Mental Status: mental status grossly normal Affect: normal affect Course Course Emergency Course: acute exacerbation of chronic low back pain-- patient had CT of the lumbar spine in 2021 which revealed lumbar spondylosis, L4 pars defect, anterolisthesis of L4 on L5, mild disc bulge multiple levels with neural foraminal stenosis and mild canal stenosis and facet joint osteoarthritis. Patient has had a more recent MRI and was prescribed back surgery by neurosurgeon Dr. Jacques. Patient is on chronic Aurora and celecoxib. Will give a dose of Dilaudid and p.o. Zofran. got urine examination which was unremarkable. Vital Signs Vital signs: Vital Signs Temperature 36.1 C L 03/21/25 16:39 Pulse Rate 96 03/21/25 16:39 Respiratory Rate 16 03/21/25 16:39 Blood Pressure 134/72 03/21/25 16:39 Pulse Oximetry 98 03/21/25 16:39 Oxygen Delivery Room Air 03/21/25 16:39 Temperature 36.1 C L 03/21/25 16:39 Pulse Rate 96 03/21/25 16:39 Respiratory Rate 16 03/21/25 16:39 Blood Pressure 134/72 03/21/25 16:39 Pulse Oximetry 98 03/21/25 16:39 Oxygen Delivery Room Air 03/21/25 16:39 MDM - Back Pain/Injury MDM Narrative Medical decision making narrative: Chronic low back pain Differential Diagnosis Differential diagnosis: Likely lumbar radiculopathy and strain of lumbar region Medical Records Attestation: I reviewed the patient's medical records. Lab Data Labs: Lab Results 03/21/25 Range/Units 17:14 Urine Color Yellow (Yellow) Urine Appearance Clear (Clear) Urine pH 6.0 (5.0-8.0) Ur Specific [place] >= 1.030 H (1.010-1.020) Urine Protein Negative (Negative) Urine Glucose (UA) Negative (Negative) Urine Ketones Negative (Negative) Ur Blood (Man) Negative (Negative) Urine Nitrate Negative (Negative) Urine Bilirubin Negative (Negative) Urine Urobilinogen 1.0 (0.2-1.0) mg/dL Leukocyte Esterase Rfl Negative (Negative) WILSON/UL Discharge Plan Discharge Clinical Impression: Chronic low back pain Qualifiers: Back pain laterality: unspecified Sciatica presence: without sciatica Qualified Code(s): M54.50 - Low back pain, unspecified Patient Disposition: Home Condition: Stable Instructions: Antibiotic Form, Chronic Back Pain (DC) Patient Language: Frisian Prescriptions: No Action sertraline 100 mg Tablet 200 mg PO DAILY clonazepam 1 mg Tablet 1 mg PO BID prednisone 20 mg tablet 20 mg PO DAILY 5 Days Qty: 5 0RF cyclobenzaprine 5 mg tablet 5 mg PO TID Qty: 20 0RF prazosin 1 mg capsule 2 mg PO HS methocarbamol 750 mg tablet 750 mg PO PRN ergocalciferol (vitamin D2) 1,250 mcg (50,000 unit) capsule 1,250 mcg PO DAILY albuterol sulfate 90 mcg/actuation HFA aerosol inhaler 90 mcg INHALATION PRN budesonide-formoterol [Symbicort] 160-4.5 mcg/actuation HFA aerosol inhaler 2 puff INHALATION DAILY Vraylar 3 mg capsule 3 mg PO DAILY Qulipta 60 mg tablet 60 mg PO DAILY celecoxib 200 mg capsule 200 mg PO DAILY atorvastatin 10 mg tablet 10 mg PO DAILY hydrocodone-acetaminophen 10-325 mg tablet 1 tablet PO TID PRN (Reason: Pain) baclofen 20 mg tablet 20 mg PO TID PRN (Reason: Pain) duloxetine 60 mg capsule,delayed release(DR/EC) 60 mg PO DAILY Follow-up/Referrals: MINNIE,YODIT FRANCO [Primary Care Provider] - Time of Disposition: 17:44
--- OUTSIDE RECORDS SUMMARY | 2025-03-21 17:15 | XMS_ITS | Encounter Summary ---
Author Organization [facility] Address [facility] [place] [address] Care Team Providers Care Earth Science Professor Name Role Phone Kat Jimenez Primary Care Provider [phone] Encounter Details Date Type Department Care Team (Late st Contact Info) Description 05/04/2024 MyChart Message Enc [facility] Medical Group Family & Internal Medicine [facility] [address] [place] [address] Kat Jimenez FNP [address] [place], [place] [phone] Meds pain Social History Tobacco Use Types [...] Description 04/17/2025 9:00 AM CDT Office Visit [facility] Medical Group [facility] Specialists - [place] [address] [facility], 2nd [place] [address] Deny Rodriguez, DPOlayinka [address] [place] [address] 05/28/2025 10:40 AM CDT Office Visit [facility] Multispecialty Care - [facility] [address] [facility], [address] [place] [address] Jose Vaughn MD 3 [place] [address] documented as of this encounter Visit Diagnoses Not on filedocumented in this encounter Additional Health Concerns Assessment Noted Time PHQ-9 Depression Total Score: 10 024 1:37 PM CDT documented as of this encounter Care Teams Earth Science Professor Relationship Specialty Start Date End Date Kat Jimenez FNP [address] [place] [address] PCP - General Nurse Practitioner Family 02/11/21 documented as of this encounter
--- OUTSIDE RECORDS SUMMARY | 2025-03-21 17:15 | XMS_ITS | Encounter Summary ---
Author Organization [facility] Address [address] [place] [address] Care Team Providers Care Director Of Accounts Payable Name Role Phone Kat Jimenez RAYMUNDO Primary Care Provider [phone] Encounter Details Date Type Department Care Team (Late st Contact Info) Description 06/04/2021 [employer] Message [facility] [address] [place] [address] [facility] Provider Re: Pt Amendment Social History Tobacco [...] Description 04/17/2025 9:00 AM CDT Office Visit [facility] Medical [facility] Foot & Ankle Specialists - [address], 2nd [place] [address] Deny Rodriguez, DPOlayinka [address] [place] [address] 05/28/2025 10:40 AM CDT Office Visit [facility] Multispecialty Care - [facility] [address] [facility], [address] [place] [address] Jose Vaughn MD 3 [place] [address] documented as of this encounter Visit Diagnoses Not on filedocumented in this encounter Additional Health Concerns Assessment Noted Time PHQ-9 Depression Total Score: 25 021 3:00 PM CDT documented as of this encounter Care Teams Director Of Accounts Payable Relationship Specialty Start Date End Date Kat Jimenez FNP [address] [place] [address] PCP - General Nurse Practitioner Family 02/11/21 documented as of this encounter
--- OUTSIDE RECORDS SUMMARY | 2025-03-21 17:15 | XMS_ITS | Encounter Summary ---
Author Organization [facility] Address [facility] [place] [address] Care Team Providers Care Fabrication Department Supervisor Name Role Phone Kat Jimenez Primary Care Provider [phone] Encounter Details Date Type Department Care Team (Late st Contact Info) Description 03/28/2021 MyChart Message Enc [facility] Medical Group Family & Internal Medicine [facility] [address] [place] [address] Kat Jimenez FNP [address] [place] [address] Referral Request Social History Tobacco [...] Description 04/17/2025 9:00 AM CDT Office Visit [facility] Specialists - [place] [address] [facility], 2nd [place] [address] Deny Rodriguez, DPM [address] [place] [address] 05/28/2025 10:40 AM CDT Office Visit [facility] Multispecialty Care - [facility] 3 [facility], [address] [place] [address] Jose Vaughn MD 3 [place] [address] documented as of this encounter Visit Diagnoses Not on filedocumented in this encounter Additional Health Concerns Infection Onset Date Last Indicated Resolved Time COVID-19 Rule Out 05/10/2021 05/10/2021 05/12/2021 12:30 AM CDT Assessment Noted Time PHQ-9 Depression Total Score: 25 021 3:00 PM CDT documented as of this encounter Care Teams Fabrication Department Supervisor Relationship Specialty Start Date End Date Kat Jimenez FNP [address] [place] [address] PCP - General Nurse Practitioner Family 02/11/21 documented as of this encounter
--- OUTSIDE RECORDS SUMMARY | 2025-03-21 17:15 | XMS_ITS | Encounter Summary ---
Author Organization [facility] Address Formerly [facility], [facility] [place] [address] Care Team Providers Care Armature Winder Repair Helper Name Role Phone Kat Jimenez Primary Care Provider [phone] Encounter Details Date Type Department Care Team (Late st Contact Info) Description 02/22/2022 MyChart Message Enc [facility] Medical Group Family & Internal Medicine [facility] [address] [place] [address] Kat Jimenez FNP [address] [place] [address] Severe pain Social History Tobacco [...] Description 04/17/2025 9:00 AM CDT Office Visit [facility] Medical Group [facility] Specialists - [address], 2nd [place] [address] Deny Rodriguez, LAURIE [address] [place] [address] 05/28/2025 10:40 AM CDT Office Visit [facility] Medical Group Multispecialty Care - [facility] 3 [facility], [address] [place] [address] Jose Vaughn MD 3 [place] [address] documented as of this encounter Visit Diagnoses Not on filedocumented in this encounter Additional Health Concerns Assessment Noted Time PHQ-9 Depression Total Score: 0 11/26/19 22 2:34 PM CDT documented as of this encounter Care Teams Armature Winder Repair Helper Relationship Specialty Start Date End Date Kat Jimenez FNP [address] [place] [address] PCP - General Nurse Practitioner Family 6/17/21 documented as of this encounter
--- OUTSIDE RECORDS SUMMARY | 2025-03-21 17:15 | XMS_ITS | Encounter Summary ---
Author Organization [facility] Address [facility] [place] [address] Care Team Providers Care Egg Pasteurizer Name Role Phone Kat Jimenez Primary Care Provider [phone] Encounter Details Date Type Department Care Team (Late st Contact Info) Description 10/25/2021 MyChart Message Enc [facility] Medical Group Family & Internal Medicine [facility] [address] [place] [address] Kat Jimenez FNP [address] [place], [place] [phone] [place] Social History Tobacco Use Types Packs/Day [...] Coronavirus/COVID-19? No / Unsure 10/25/2021 12:46 PM LASER ENGINEER documented as of this encounter Plan of Treatment Upcoming Encounters Date Type Department Care Team (Late st Contact Info) Description 04/17/2025 9:00 AM CDT Office Visit [facility] Medical [facility] Foot & [facility]le Specialists - [place] [address] [place] [address], 2nd [place] [address] Deny Rodriguez, LAURIE [address] [place] [address] 05/28/2025 10:40 AM CDT Office Visit [facility] Multispecialty Care - [address], [address] [place] [address] Jose Vaughn MD 3 [place] [address] documented as of this encounter Visit Diagnoses Not on filedocumented in this encounter Additional Health Concerns Assessment Noted Time PHQ-9 Depression Total Score: 25 021 3:00 PM CDT documented as of this encounter Care Teams Egg Pasteurizer Relationship Specialty Start Date End Date Kat Jimenez FNP [address] [place] [address] PCP - General Nurse Practitioner Family 02/11/21 documented as of this encounter
--- OUTSIDE RECORDS SUMMARY | 2025-03-21 17:15 | XMS_ITS | Encounter Summary ---
Author Organization [facility] Address [facility]3 [place] [address] Care Team Providers Care Calculation Reviewer Name Role Phone Kat Jimenez Primary Care Provider [phone] Encounter Details Date Type Department Care Team (Late st Contact Info) Description 06/05/2021 MyCCurefabt Message Enc [facility] Medical Group Family & Internal Medicine [facility] [address] [place] [address] Kat Jimenez FNP [address] [place] [address] RE: FW: Question Social History [...] Description 04/17/2025 9:00 AM CDT Office Visit [facility] Medical [facility] Foot & Ankle Specialists - [address], 2nd [place] [address] Deny Rodriguez, LAURIE [address] [place] [address] 05/28/2025 10:40 AM CDT Office Visit [facility] Multispecialty Care - [facility] 3 [facility], [address] [place] [address] Jose Vaughn MD 3 [place] [address] documented as of this encounter Visit Diagnoses Not on filedocumented in this encounter Additional Health Concerns Assessment Noted Time PHQ-9 Depression Total Score: 25 02/11/ 021 3:00 PM CDT documented as of this encounter Care Teams Calculation Reviewer Relationship Specialty Start Date End Date Kat Jimenez FNP [address] [place] [address] PCP - General Nurse Practitioner Family 02/11/21 documented as of this encounter
--- OUTSIDE RECORDS SUMMARY | 2025-03-21 17:15 | XMS_ITS | Encounter Summary ---
Author Organization [facility] Address [facility] [place] [address] Care Team Providers Care Finishing Supervisor Plastic Sheets Name Role Phone Kat Jimenez Primary Care Provider [phone] Encounter Details Date Type Department Care Team (Late st Contact Info) Description 09/16/2022 MyChart Message Enc [facility] Medical Group Family & Internal Medicine [facility] [address] [place] [address] Kat Jimenez FNP [address] [place] [address] MRI Social History Tobacco Use [...] Coronavirus/COVID-19? No / Unsure 09/19/2022 1:02 PM HEART SURGEON documented as of this encounter Plan of Treatment Upcoming Encounters Date Type Department Care Team (Late st Contact Info) Description 04/17/2025 9:00 AM CDT Office Visit [facility] Medical Group Foot & Ankle Specialists - [address], 2nd [place] [address] Deny Rodriguez, DPM [address] [place] [address] 05/28/2025 10:40 AM CDT Office Visit [facility] Multispecialty Care - [facility] 3 [facility], [address] [place] [address] Jose Vaughn MD 3 [place] [address] documented as of this encounter Visit Diagnoses Not on filedocumented in this encounter Additional Health Concerns Assessment Noted Time PHQ-9 Depression Total Score: 0 11/26/19 22 2:34 PM CDT documented as of this encounter Care Teams Finishing Supervisor Plastic Sheets Relationship Specialty Start Date End Date Kat Jimenez FNP [address] [place] [address] PCP - General Nurse Practitioner Family 02/11/21 documented as of this encounter
--- OUTSIDE RECORDS SUMMARY | 2025-03-21 17:15 | XMS_ITS | Clinical Summary ---
Author Organization [facility] Address [address] [place] [address] Care Team Providers Care Car Shifter Name Role Phone Kat Jimenez YODIT-STRICKLER ATTENDANT Primary Care Provider [phone] Source Comments [facility],non-owned Affiliates and Associated Physician Practices is amultiple site organization consisting of ambulatory clinics and hospital sitesin [place], [place], [place] and [place]. This disclosure is being madepursuant to the Care Everywhere program and may not contain all information available regarding this patient. Last updated 18.[facility] Allergies Active Allergy Reactions Criticality Noted Date [...] vitamin D, ergocalciferol , (Drisdol) 1.25 MG (12227 UT) capsule Take 1 (one) capsule by [...] mouth once daily 5 Active HYDROcodone-ac etaminophen (Gering) 10-325 MG tablet Take 1 (one) tablet [...] on file Legal Sex Female 9:49 AM POWDERED METAL SUPERVISOR Gender Identity Not on file Sexual Orientation Not on file Last Filed Vital Signs Vital Sign Reading Time Taken Comments Blood Pressure 123/74 10/08/2024 3:00 PM POWDERED METAL SUPERVISOR Pulse 85 10/08/2024 3:00 PM POWDERED METAL SUPERVISOR Temperature 36.6 C (97.9 F) 10/08/2024 2:36 PM POWDERED METAL SUPERVISOR Respiratory Rate 19 10/08/2024 3:00 PM POWDERED METAL SUPERVISOR Oxygen Saturation 92% 10/08/2024 3:00 PM POWDERED METAL SUPERVISOR Inhaled Oxygen Concentration - - Weight 99.9 kg (220 lb 3.2 oz) 10/08/2024 11:11 AM POWDERED METAL SUPERVISOR Height 162.6 cm (5' 4) 10/08/2024 11:11 AM POWDERED METAL SUPERVISOR Body Mass Index 37.8 10/08/2024 11:11 AM POWDERED METAL SUPERVISOR Plan of Treatment Health Maintenance Due Date [...] this topic Medical Devices Implanted Type Area Change Agent Device Identifier Shelf Expiration Date Model / Serial / Lot Stent Uret 5fr 24cm 2 Pgtl Crv 2 Drmtr Implanted:Qty : 1 on 09/24/2024 by Jocelyn Cervantes DO at [facility] Right: [employer] [id number] 03/20/2027 [id number] 20 / / [id number] Explanted Type Area Change Agent Device Identifier Shelf Expiration Date Model / Serial / Lot Stent Uret 6fr 22cm Sft Tria Explanted:Qty : 1 on 09/24/2024 by Jocelyn Cervantes DO at [facility] Right: [employer] Trung [id number] 02/08/2027 [id number] 10 / / [id number] [place] [address] [facility] Advance Directives * Full Code (Latest Code Status on File) Date Activated Date Inactivated Comments 09/24/2024 5:31 AM 09/25/2024 1:11 PM Care Teams Car Shifter Relationship Specialty Start Date End Date Kat Jimenez APRN-HAZEL [address] [place] [address] PCP - General 08/10/21
--- OUTSIDE RECORDS SUMMARY | 2025-03-21 17:15 | XMS_ITS | Encounter Summary ---
Author Organization [facility] Address [facility] [place] [address] Care Team Providers Care Barrel Raiser Name Role Phone Kat Jimenez Primary Care Provider [phone] Encounter Details Date Type Department Care Team (Late st Contact Info) Description 07/25/2022 MyChart Message Enc [facility] Medical Group Family & Internal Medicine [facility] [address] [place] [address] Kat Jimenez FNP [address] [place], [place] [phone] Pre-authorization Social History Tobacco Use Types Packs/Day [...] Coronavirus/COVID-19? No / Unsure 07/13/2022 2:24 PM AUTISM TUTOR documented as of this encounter Plan of Treatment Upcoming Encounters Date Type Department Care Team (Late st Contact Info) Description 04/17/2025 9:00 AM CDT Office Visit [facility] Medical [facility] Foot & Ankle Specialists - [address], 2nd [place] [address] Deny Rodriguez, LAURIE [address] [place] [address] 05/28/2025 10:40 AM CDT Office Visit [facility] Multispecialty Care - [facility] 3 [facility], [address] [place] [address] Jose Vaughn MD 3 [place] [address] documented as of this encounter Visit Diagnoses Not on filedocumented in this encounter Additional Health Concerns Assessment Noted Time PHQ-9 Depression Total Score: 0 11/26/19 22 2:34 PM CDT documented as of this encounter Care Teams Barrel Raiser Relationship Specialty Start Date End Date Kat Jimenez FNP [address] [place] [address] PCP - General Nurse Practitioner Family 02/11/21 documented as of this encounter
--- OUTSIDE RECORDS SUMMARY | 2025-03-21 17:15 | XMS_ITS | Encounter Summary ---
Author Organization [facility] Address [facility] [place] [address] Care Team Providers Care Employee Development Specialist Name Role Phone Kat Jimenez Primary Care Provider [phone] Encounter Details Date Type Department Care Team (Late st Contact Info) Description 07/25/2022 MyChart Message Enc [facility] Medical Group Family & Internal Medicine [facility] [address] [place] [address] Kat Jimenez FNP [address] [place] [address] Severe pain Social History Tobacco [...] Coronavirus/COVID-19? No / Unsure 07/13/2022 2:24 PM ENGINEERING GROUP LEADER documented as of this encounter Plan of Treatment Upcoming Encounters Date Type Department Care Team (Late st Contact Info) Description 04/17/2025 9:00 AM CDT Office Visit [facility] Medical [facility] Foot & Ankle Specialists - [place] [address] [place] [address], 2nd [place] [address] Deny Rodriguez, LAURIE [address] [place] [address] 05/28/2025 10:40 AM CDT Office Visit [facility] Multispecialty Care - [address], [address] [place] [address] Jose Vaughn MD 3 [place] [address] documented as of this encounter Visit Diagnoses Not on filedocumented in this encounter Additional Health Concerns Assessment Noted Time PHQ-9 Depression Total Score: 0 11/26/19 22 2:34 PM CDT documented as of this encounter Care Teams Employee Development Specialist Relationship Specialty Start Date End Date Kat Jimenez FNP [address] [place] [address] PCP - General Nurse Practitioner Family 02/11/21 documented as of this encounter
--- OUTSIDE RECORDS SUMMARY | 2025-03-21 17:15 | XMS_ITS | Encounter Summary ---
Author Organization [facility] Address [facility]8 [place] [address] Care Team Providers Care Director Of Technology Name Role Phone Kat Jimenez Primary Care Provider [phone] Encounter Details Date Type Department Care Team (Late st Contact Info) Description 11/28/2022 MyChart Message Enc [facility] Medical Group Family & Internal Medicine [facility] [address] [place] [address] Kat Jimenez FNP [address] [place] [address] Still no hydrocodone vraylar Social [...] Description 04/17/2025 9:00 AM CDT Office Visit [facility] Medical Group Foot & Ankle Specialists - [address], 2nd [place] [address] Deyn Rodriguez DPM [address] [place], [place] [address] 05/28/2025 10:40 AM CDT Office Visit [facility] Medical Group Multispecialty Care - [address], [address] [place] [address] Jose Vaughn MD [address] [place] [address] [place] [address] documented as of this encounter Visit Diagnoses Not on filedocumented in this encounter Additional Health Concerns Assessment Noted Time PHQ-9 Depression Total Score: 0 11/26/19 22 2:34 PM CDT documented as of this encounter Care Teams Director Of Technology Relationship Specialty Start Date End Date Kat Jimenez FNP [address] [place] [id number] PCP - General Nurse Practitioner Family 02/11/21 documented as of this encounter
--- OUTSIDE RECORDS SUMMARY | 2025-03-21 17:15 | XMS_ITS | Encounter Summary ---
Author Organization [facility] Address [facility] [place] [address] Care Team Providers Care Restaurant Bartender Name Role Phone Kat Jimenez Primary Care Provider [phone] Encounter Details Date Type Department Care Team (Late st Contact Info) Description 07/25/2022 MyChart Message Enc [facility] Medical Group Family & Internal Medicine [facility] [address] [place] [address] Kat Jimenez FNP [address] [place], [place] [phone] Pre-authorization Social History Tobacco Use Types Packs/Day [...] Coronavirus/COVID-19? No / Unsure 07/13/2022 2:24 PM LOCK INSTALLER documented as of this encounter Plan of Treatment Upcoming Encounters Date Type Department Care Team (Late st Contact Info) Description 04/17/2025 9:00 AM CDT Office Visit [facility] Medical [facility] Foot & Ankle Specialists - [address], 2nd [place] [address] Deny Rodriguez, LAURIE [address] [place] [address] 05/28/2025 10:40 AM CDT Office Visit [facility] Multispecialty Care - [facility] 3 [facility], [address] [place] [address] Jose Vaughn MD 3 [place] [address] documented as of this encounter Visit Diagnoses Not on filedocumented in this encounter Additional Health Concerns Assessment Noted Time PHQ-9 Depression Total Score: 0 11/26/19 22 2:34 PM CDT documented as of this encounter Care Teams Restaurant Bartender Relationship Specialty Start Date End Date Kat Jimenez FNP [address] [place] [address] PCP - General Nurse Practitioner Family 02/11/21 documented as of this encounter
--- OUTSIDE RECORDS SUMMARY | 2025-03-21 17:15 | XMS_ITS | Encounter Summary ---
Author Organization [facility] Address [facility] [place] [address] Care Team Providers Care Textile Screen Printer Name Role Phone Kat Jimenez Primary Care Provider Encounter Details Date Type Department Care Team (Late st Contact Info) Description 05/31/2021 MyChart Message Enc [facility] Medical Group Family & Internal Medicine [facility] [address] [place] [address] Kat Jimenez FNP [address] [place] [address] RE: Question Social History Tobacco [...] Description 04/17/2025 9:00 AM CDT Office Visit [facility] Foot & Ankle Specialists - [place] [address] [facility], 2nd [place] [address] Deny Rodriguez, DPOlayinka [address] [place] [address] 05/28/2025 10:40 AM CDT Office Visit [facility] Multispecialty Care - [facility] 3 [facility], [address] [place] [address] Jose Vaughn MD 3 [place] [address] documented as of this encounter Visit Diagnoses Not on filedocumented in this encounter Additional Health Concerns Assessment Noted Time PHQ-9 Depression Total Score: 25 02/11/ 021 3:00 PM CDT documented as of this encounter Care Teams Textile Screen Printer Relationship Specialty Start Date End Date Kat Jimenez FNP [address] [place] [address] PCP - General Nurse Practitioner Family 02/11/21 documented as of this encounter
--- OUTSIDE RECORDS SUMMARY | 2025-03-21 17:15 | XMS_ITS | Encounter Summary ---
Author Organization [facility] Address [facility] [place] [address] Care Team Providers Care Executive Sous Chef Name Role Phone Kat Jimenez Primary Care Provider [phone] Encounter Details Date Type Department Care Team (Late st Contact Info) Description 05/01/2021 MyChart Message Enc [facility] Medical Group Family & Internal Medicine [facility] [address] [place] [address] Kat Jimenez FNP [address] [place] [address] RE: FW: Other Social History [...] Description 04/17/2025 9:00 AM CDT Office Visit [facility] Medical [facility] Foot & Ankle Specialists - [place] [address] [facility], 2nd [place] [address] Deny Rodriguez, DPOlayinka [address] [place] [address] 05/28/2025 10:40 AM CDT Office Visit [facility] Multispecialty Care - [facility] 3 [facility], [address] [place] [address] Jose Vaughn MD 3 [place] [address] documented as of this encounter Visit Diagnoses Not on filedocumented in this encounter Additional Health Concerns Infection Onset Date Last Indicated Resolved Time COVID-19 Rule Out 05/10/2021 05/10/2021 05/12/2021 12:30 AM CDT Assessment Noted Time PHQ-9 Depression Total Score: 25 021 3:00 PM CDT documented as of this encounter Care Teams Executive Sous Chef Relationship Specialty Start Date End Date Kat Jimenez FNP [address] [place] [address] PCP - General Nurse Practitioner Family 02/11/21 documented as of this encounter
--- OUTSIDE RECORDS SUMMARY | 2025-03-21 17:15 | XMS_ITS | Encounter Summary ---
Author Organization [facility] Address [address] [place] [address] Care Team Providers Care Toll Line Repairer Name Role Phone Juliann Ambrosio MD Primary Care Provider [phone] Kat Jimenez Primary Care Provider [phone] Encounter Details Date Type Department Care Team (Late Contact Info) Description 02/02/2019 Abstract SFL CONVERSION [address] [place] [address] [place] [address] , Generic Conversion, Social History Tobacco Use [...] Description 04/17/2025 9:00 AM CDT Office Visit [facility] Medical Group Foot & Ankle Specialists - [address], 2nd [place] [address] Deny Rodriguez DPM [address] [place], [place] [phone] 05/28/2025 10:40 AM CDT Office Visit [facility] Medical Group Multispecialty Care - [address], [address] [place] [address] Jose Vaughn MD [address] [place] [address] documented as of this encounter Visit Diagnoses Not on filedocumented in this encounter Additional Health Concerns Infection Onset Date Last Indicated Resolved Time COVID-19 Rule Out 05/10/2021 05/10/2021 05/12/2021 12:30 AM CDT documented as of this encounter Care Teams Toll Line Repairer Relationship Specialty Start Date End Date Juliann Ambrosio MD PCP - General INTERNAL MEDICINE 12/29/20 02/10/21 Kat Jimenez FNP [address] [place] [address] PCP - General Nurse Practitioner Family 02/11/21 documented as of this encounter
--- OUTSIDE RECORDS SUMMARY | 2025-03-21 17:15 | XMS_ITS | Encounter Summary ---
Author Organization [facility] Address [facility] [place] [address] Care Team Providers Care Arboriculture Teacher Name Role Phone Kat Jimenez Primary Care Provider [phone] Encounter Details Date Type Department Care Team (Late st Contact Info) Description 04/15/2021 MyChart Message Enc [facility] Medical Group Family & Internal Medicine [facility] [address] [place] [address] Kat Jimenez FNP [address] [place] [address] RE: FW: Question Social History [...] Description 04/17/2025 9:00 AM CDT Office Visit [facility] Foot & Ankle Specialists - [place] [address] [facility], 2nd [place] [address] Deny Rodriguez, LAURIE [address] [place] [address] 05/28/2025 10:40 AM CDT Office Visit [facility] Multispecialty Care - [facility] 3 [facility], [address] [place] [address] Jose Vaughn MD 3 [place] [address] documented as of this encounter Visit Diagnoses Not on filedocumented in this encounter Additional Health Concerns Infection Onset Date Last Indicated Resolved Time COVID-19 Rule Out 05/10/2021 05/10/2021 05/12/2021 12:30 AM CDT Assessment Noted Time PHQ-9 Depression Total Score: 25 021 3:00 PM CDT documented as of this encounter Care Teams Arboriculture Teacher Relationship Specialty Start Date End Date Kat Jimenez FNP [address] [place] [address] PCP - General Nurse Practitioner Family 02/11/21 documented as of this encounter
--- OUTSIDE RECORDS SUMMARY | 2025-03-21 17:15 | XMS_ITS | Encounter Summary ---
Author Organization [facility] Address [facility] [place] [address] Care Team Providers Care Lawn Maintenance Worker Name Role Phone Kat Jimenez Primary Care Provider [phone] Encounter Details Date Type Department Care Team (Late st Contact Info) Description 09/10/2022 MyChart Message Enc [facility] Medical Group Family & Internal Medicine [facility] [address] [place] [address] Kat Jimenez FNP [address] [place] [address] Ability to work Social History [...] Coronavirus/COVID-19? No / Unsure 08/17/2022 2:09 PM BANK BOSS documented as of this encounter Plan of Treatment Upcoming Encounters Date Type Department Care Team (Late st Contact Info) Description 04/17/2025 9:00 AM CDT Office Visit [facility] - [place] [address] [place] [address], 2nd [place] [address] Deny Rodriguez, DPM [address] [place] [address] 05/28/2025 10:40 AM CDT Office Visit [facility] Multispecialty Care - [facility] [address] [facility], [address] [place] [address] Jose Vaughn MD 3 [place] [address] documented as of this encounter Visit Diagnoses Not on filedocumented in this encounter Additional Health Concerns Assessment Noted Time PHQ-9 Depression Total Score: 0 11/26/19 22 2:34 PM CDT documented as of this encounter Care Teams Lawn Maintenance Worker Relationship Specialty Start Date End Date Kat Jimenez FNP [address] [place] [address] PCP - General Nurse Practitioner Family 02/11/21 documented as of this encounter
--- OUTSIDE RECORDS SUMMARY | 2025-03-21 17:15 | XMS_ITS | Encounter Summary ---
Author Organization [facility] Address [facility] [place] [address] Care Team Providers Care Mechanical Engineering Draftsperson Name Role Phone Kat Jimenez RAYMUNDO Primary Care Provider Encounter Details Date Type Department Care Team (Late Contact Info) Description 07/06/2023 MyChart Message Enc [facility] Medical [facility] Family & Internal Medicine [address] [address] [place], [facility] Provider Referal Social History Tobacco Use Types [...] Description 04/17/2025 9:00 AM CDT Office Visit [facility] - [place] [address] [facility], 2nd [place] [address] Deny Rodriguez, LAURIE [address] [place] [address] 05/28/2025 10:40 AM CDT Office Visit [facility] Multispecialty Care - [facility] [address] [facility], [address] [place] [address] Jose Vaughn MD 3 [place] [address] documented as of this encounter Visit Diagnoses Not on filedocumented in this encounter Additional Health Concerns Assessment Noted Time PHQ-9 Depression Total Score: 25 023 2:25 PM CDT documented as of this encounter Care Teams Mechanical Engineering Draftsperson Relationship Specialty Start Date End Date Kat Jimenez FNP [address] [place] [address] PCP - General Nurse Practitioner Family 02/11/21 documented as of this encounter
--- OUTSIDE RECORDS SUMMARY | 2025-03-21 17:15 | XMS_ITS | Encounter Summary ---
Author Organization [facility] Address [facility] [place] [address] Care Team Providers Care Seafood Harvester Name Role Phone Kat Jimenez Primary Care Provider [phone] Encounter Details Date Type Department Care Team (Late st Contact Info) Description 10/31/2021 MyChart Message Enc [facility] Medical Group Family & Internal Medicine [facility] [address] [place] [address] Kat Jimenez FNP [address] [place] [address] Tylenol with codeine Social History [...] Coronavirus/COVID-19? No / Unsure 10/29/2021 1:59 PM BOILING HOUSE HAND documented as of this encounter Progress Notes [...] the office and just got this message. ING HOUSE HAND documented in this encounter Plan of Treatment Upcoming Encounters Date Type Department Care Team (Late st Contact Info) Description 04/17/2025 9:00 AM CDT Office Visit [facility] Medical Group [facility] - [address], 2nd [place] [address] Deny Rodriguez DPM [address] [place] [address] 05/28/2025 10:40 AM CDT Office Visit [facility] Medical Group Multispecialty Care - [address], [address] [place] [address] Jose Vaughn MD 3 [place] [address] documented as of this encounter Visit Diagnoses Not on filedocumented in this encounter Additional Health Concerns Assessment Noted Time PHQ-9 Depression Total Score: 25 022 2:24 PM BOILING HOUSE HAND documented as of this encounter Care Teams Seafood Harvester Relationship Specialty Start Date End Date Kat Jimenez FNP [address] [place] [address] PCP - General Nurse Practitioner Family 02/11/21 documented as of this encounter
--- OUTSIDE RECORDS SUMMARY | 2025-03-21 17:15 | XMS_ITS | Encounter Summary ---
Author Organization [facility] Address [address] [place] [address] Care Team Providers Care Engine Mechanic Name Role Phone Kat Jimenez RAYMUNDO Primary Care Provider [phone] Encounter Details Date Type Department Care Team (Late st Contact Info) Description 09/16/2022 MyChart Message Enc [facility] Medical Group Multispecialty Care - [facility] [address] [facility], [address] [place] [address] Jerson Jacques MD 3 [place] [address] Dermal implants /MRI Social History Tobacco Use [...] Coronavirus/COVID-19? No / Unsure 09/19/2022 1:02 PM MANAGER PHYSICAL documented as of this encounter Plan of Treatment Upcoming Encounters Date Type Department Care Team (Late st Contact Info) Description 04/17/2025 9:00 AM CDT Office Visit [facility] Specialists - [address], 2nd [place] [address] Deny Rodriguez DPM [address] [place] [address] 05/28/2025 10:40 AM CDT Office Visit [facility] Multispecialty Care - [facility] [address] [facility], [address] [place] [address] Jose Vaughn MD 3 [place] [address] documented as of this encounter Visit Diagnoses Not on filedocumented in this encounter Additional Health Concerns Assessment Noted Time PHQ-9 Depression Total Score: 0 11/26/19 22 2:34 PM CDT documented as of this encounter Care Teams Engine Mechanic Relationship Specialty Start Date End Date Kat Jimenez FNP [address] [place] [address] PCP - General Nurse Practitioner Family 02/11/21 documented as of this encounter
--- OUTSIDE RECORDS SUMMARY | 2025-03-21 17:15 | XMS_ITS | Encounter Summary ---
Author Organization [facility] Address [facility] [place] [address] Care Team Providers Care Archival Studies Professor Name Role Phone Kat Jimenez Primary Care Provider [phone] Encounter Details Date Type Department Care Team (Late st Contact Info) Description 05/05/2021 MyChart Message Enc [facility] Medical Group Family & Internal Medicine [facility] [address] [place] [address] Kat Jimenez FNP [address] [place] [address] RE: Referral Request Social History [...] Medical Group [facility] - [place] [address] [facility], 2nd [place] [address] Deny Rodriguez, DPOlayinka [address] [place] [address] 05/28/2025 10:40 AM CDT Office Visit [facility] Multispecialty Care - [facility] 3 [facility], [address] [place] [address] Jose Vaughn MD 3 [place] [address] documented as of this encounter Visit Diagnoses Not on filedocumented in this encounter Additional Health Concerns Infection Onset Date Last Indicated Resolved Time COVID-19 Rule Out 05/10/2021 05/10/2021 05/12/2021 12:30 AM CDT Assessment Noted Time PHQ-9 Depression Total Score: 25 021 3:00 PM CDT documented as of this encounter Care Teams Archival Studies Professor Relationship Specialty Start Date End Date Kat Jimenez FNP [address] [place] [address] PCP - General Nurse Practitioner Family 02/11/21 documented as of this encounter
--- OUTSIDE RECORDS SUMMARY | 2025-03-21 17:15 | XMS_ITS | Encounter Summary ---
Author Organization [facility] Address [facility] [place] [address] Care Team Providers Care Territory Account Executive Name Role Phone Kat Jimenez Primary Care Provider [phone] Encounter Details Date Type Department Care Team (Late st Contact Info) Description 12/19/2022 MyChart Message Enc [facility] Medical Group Family & Internal Medicine [facility] [address] [place] [address] Kat Jimenez FNP [address] [place] [address] Referral to orthopedic doctor Social [...] 9:00 AM CDT Office Visit [facility] Medical [facility]ists - [place] [address] [place] [address], 2nd [place] [address] Deny Rodriguez, LAURIE [address] [place] [address] 05/28/2025 10:40 AM CDT Office Visit [facility] Multispecialty Care - [address], [address] [place] [address] Jose Vaughn MD 3 [place] [address] documented as of this encounter Visit Diagnoses Not on filedocumented in this encounter Additional Health Concerns Assessment Noted Time PHQ-9 Depression Total Score: 0 11/26/19 22 2:34 PM CDT documented as of this encounter Care Teams Territory Account Executive Relationship Specialty Start Date End Date Kat Jimenez FNP [address] [place] [address] PCP - General Nurse Practitioner Family 02/11/21 documented as of this encounter
--- OUTSIDE RECORDS SUMMARY | 2025-03-21 17:15 | XMS_ITS | Referral Summary ---
Author Organization [facility] Address [facility] [place] [address] Care Team Providers Care Director Imaging Name Role Phone Kat Jimenez NP Primary Care Provider [phone] Kat Jimenez NP Unavailable [phone] Kat Jimenez NP Unavailable [phone] Allergies Active Allergy Reactions Criticality Noted Date [...] on file Legal Sex Female 8:11 AM POLICY ISSUE CLERK Gender Identity Not on file Sexual Orientation Not on file Last Filed Vital Signs Vital Sign Reading Time Taken Comments Blood Pressure 139/100 08/24/2021 3:04 PM POLICY ISSUE CLERK Pulse 91 08/24/2021 3:04 PM POLICY ISSUE CLERK Temperature 36.5 C (97.7 F) 08/24/2021 3:04 PM POLICY ISSUE CLERK Respiratory Rate 20 08/24/2021 3:04 PM POLICY ISSUE CLERK Oxygen Saturation 98% 08/24/2021 3:04 PM POLICY ISSUE CLERK Inhaled Oxygen Concentration - - Weight 103.4 kg (228 lb) 08/24/2021 3:04 PM POLICY ISSUE CLERK Height 160 cm (5' 3) 08/03/2021 3:17 PM POLICY ISSUE CLERK Body Mass Index 40.39 08/03/2021 3:17 PM POLICY ISSUE CLERK Plan of Treatment Not on file Goals [...] and compensatory methods as needed Insurance [facility] Care Teams Director Imaging Relationship Specialty Start Date End Date Kat Jimenez NP [address] [place] [address] PCP - General Nurse Practitioner 05/11/21 Kat Jimenez NP [address] [place] [address] Nurse Practitioner 05/11/21 Kat Jimenez NP [address] [place] [address] Nurse Practitioner Nurse Practitioner 04/02/21
--- OUTSIDE RECORDS SUMMARY | 2025-03-21 17:15 | XMS_ITS | Encounter Summary ---
Author Organization [facility] Address [facility] [place] [address] Care Team Providers Care Quality Assurance Associate Name Role Phone Kat Jimenez Primary Care Provider [phone] Encounter Details Date Type Department Care Team (Late st Contact Info) Description 10/06/2021 MyChart Message Enc [facility] Medical Group Family & Internal Medicine [facility] [address] [place] [address] Kat Jimenez FNP [address] [place], [place] [phone] Med refills Social History Tobacco Use Types [...] a pain management to get her in. OMIC RESEARCH ANALYST documented in this encounter Plan of Treatment Upcoming Encounters Date Type Department Care Team (Late st Contact Info) Description 04/17/2025 9:00 AM CDT Office Visit [facility] Medical [facility] Foot [facility] Ankle Specialists - [address], 2nd [place] [address] Deny Rodriguez, DPM [address] [place] [address] 05/28/2025 10:40 AM CDT Office Visit [facility] Multispecialty Care - [facility] 3 [facility], [address] [place] [address] Jose Vaughn MD 3 [place] [address] documented as of this encounter Visit Diagnoses Not on filedocumented in this encounter Additional Health Concerns Assessment Noted Time PHQ-9 Depression Total Score: 25 021 3:00 PM CDT documented as of this encounter Care Teams Quality Assurance Associate Relationship Specialty Start Date End Date Kat Jimenez FNP [address] [place] [address] PCP - General Nurse Practitioner Family 02/11/21 documented as of this encounter
--- OUTSIDE RECORDS SUMMARY | 2025-03-21 17:15 | XMS_ITS | Encounter Summary ---
Author Organization [facility] Address [facility] [place] [address] Care Team Providers Care Pressed Or Blown Glass Worker Name Role Phone Kat Jimenez Primary Care Provider [phone] Encounter Details Date Type Department Care Team (Late st Contact Info) Description 03/01/2021 MyChart Message Enc [facility] Medical Group Family & Internal Medicine [facility] [address] [place] [address] Kat Jimenez FNP [address] [place] [address] RE: Other Social History Tobacco [...] Description 04/17/2025 9:00 AM CDT Office Visit [facility] Medical Group Foot [facility]le Specialists - [address], 2nd [place] [address] Deny Rodriguez DPM [address] [place] [address] 05/28/2025 10:40 AM CDT Office Visit [facility] Medical Group Multispecialty Care - [facility] 3 [facility], [address] [place] [address] Jose Vaughn MD 3 [place] [address] documented as of this encounter Visit Diagnoses Not on filedocumented in this encounter Additional Health Concerns Infection Onset Date Last Indicated Resolved Time COVID-19 Rule Out 05/10/2021 05/10/2021 05/12/2021 12:30 AM CDT Assessment Noted Time PHQ-9 Depression Total Score: 25 06/2 021 3:00 PM CDT documented as of this encounter Care Teams Pressed Or Blown Glass Worker Relationship Specialty Start Date End Date Kat Jimenez FNP [address] [place] [address] PCP - General Nurse Practitioner Family 02/11/21 documented as of this encounter
--- OUTSIDE RECORDS SUMMARY | 2025-03-21 17:15 | XMS_ITS | Clinical Summary ---
Author Organization [facility] Address [facility] [place] [address] Care Team Providers Care Tank Car Cleaner Name Role Phone Kat Jimenez NP Primary Care Provider [phone] Kat Jimenez NP Unavailable [phone] Kat Jimenez NP Unavailable [phone] Allergies Active Allergy Reactions Criticality Noted Date [...] on file Legal Sex Female 8:11 AM FRAMING MANAGER Gender Identity Not on file Sexual Orientation Not on file Obstetrics History Last Filed Vital Signs Vital Sign Reading Time Taken Comments Blood Pressure 139/100 08/24/2021 3:04 PM FRAMING MANAGER Pulse 91 08/24/2021 3:04 PM FRAMING MANAGER Temperature 36.5 C (97.7 F) 08/24/2021 3:04 PM FRAMING MANAGER Respiratory Rate 20 08/24/2021 3:04 PM FRAMING MANAGER Oxygen Saturation 98% 08/24/2021 3:04 PM FRAMING MANAGER Inhaled Oxygen Concentration - - Weight 103.4 kg (228 lb) 08/24/2021 3:04 PM FRAMING MANAGER Height 160 cm (5' 3) 08/03/2021 3:17 PM FRAMING MANAGER Body Mass Index 40.39 08/03/2021 3:17 PM FRAMING MANAGER Plan of Treatment Not on file Goals [...] Payer ID:[id number] (NAIC) Type:MEDICAID RISK OTHER Address: [address] [facility] Care Teams Tank Car Cleaner Relationship Specialty Start Date End Date Kat Jimenez NP [address] [place] [address] PCP - General Nurse Practitioner 05/11/21 Kat Jimenez NP [address] [place] [address] Nurse Practitioner 05/11/21 Kat Jimenez NP [address] [place] [address] Nurse Practitioner Nurse Practitioner 04/02/21
--- OUTSIDE RECORDS SUMMARY | 2025-03-21 17:16 | XMS_ITS | Clinical Summary ---
Author Organization [facility] Address [facility]5 [place] [address] Care Team Providers Care Brick Cleaner Name Role Phone Joan Hartman RAYMUNDO Primary Care Provider [phone] Allergies Active Allergy Reactions Criticality Noted Date [...] recurrent major depressive disorder, without psychotic features ([facility]) 08/16/2023 Night terrors 01/09/2023 Chronic migraine without aur a without status migrainosus, not intractable 11/11/2022 Asthma ([facility]) 06/07/2022 Overview (03/28/2024): Last Assessment & Plan: Condition: stable Reviewed trigger avoidance and reviewed proper use of inhalers and rescue medications. Reviewed concerning signs/symptoms and ER precautions. Follow up in: three months with PCP Mixed hyperlipidemia 03/28/2022 Dysmenorrhea 11/22/2021 Menorrhagia with irregular cycle 11/22/2021 Hemorrhoids, unspecified hemorrhoid type 022 Overview (11/16/2021): Added automatically from request for surgery [id number] Dysphagia, unspecified type 06/11/2021 Overview (06/11/2021): Added automatically from request for surgery [id number] Class 3 severe obesity due t o excess calories with serious comorbidity and body mass index (BMI) of 45.0 to 49.9 in adult 02/12/2021 Chronic neck pain 02/12/2021 Overview (03/28/2024): Last Assessment & Plan: Condition: stable Follow up in: three months with PCP Polyarthralgia 02/12/2021 Fibromyalgia 02/12/2021 PTSD (post-traumatic stress disorder) 02/12/2021 Bipolar 1 disorder, manic, mild ([facility] ) 02/12/2021 Anxiety 02/12/2021 Vitamin D deficiency [...] Radiculopathy, lumbar region 04/08/2024 04/11/2024 Bipolar disorder ([facility]) 06/07/2022 04/11/2024 Overview (03/28/2024): Last Assessment & [...] including calling Suicide Hotline ( ) or 246. Follow up in three months with Psychologist/Counselor/SupportGroup/Psychiatrist and PCP Rectal bleed 06/11/2021 04/11/2024 Overview (06/11/2021): Added automatically from request for surgery [id number] Other migraine without statu s migrainosus, not [...] CDT - 03/06/2025 1:40 PM CDT Surgery [facility] [place] [address] [phone] Maria L Sarkar MD INJECTION EPIDURAL [id number], [id number] 03/06/2025 12:14 PM CDT - 03/06/2025 1:58 PM CDT Hospital Encounter [facility] [place] [address] [phone] Maria L Sarkar MD Discharge Disposition: Home or Self Care (Routine Discharge) 03/06/2025 12:13 PM CDT Hospital Encounter [facility] [place] [address] [phone] Maria L Sarkar MD Discharge Disposition: Home or Self Care (Routine Discharge) 03/06/2025 Travel 03/05/2025 10:40 AM CDT Office Visit [facility] Medical Group Multispecialty Care - [facility] 3 [facility], [address] [place] [address] Jose Vaughn MD Botox Procedure (migraines 155); Procedure (Trigger point) 03/05/2025 Scan [facility] INFO SRVCS Scanned, Doc Med Group 03/05/2025 Travel 03/03/2025 Travel 02/19/2025 Orders Only [facility] - [address], [address] [place] [address] Jose Vaughn MD 02/10/2025 Telephone [facility] Family & Internal [address] [address] Joan Hartman FNP Prior Authorization (budesonide-formotero l (SYMBICORT) 160-4.5 MCG/ACT inhaler) 01/14/2025 11:50 AM CDT - 01/14/2025 11:59 PM CDT Hospital Encounter [facility] [place] [address] [phone] Stephanie Hope, BRANCH SERVICE LEADER Discharge Disposition: Home or Self Care (Routine Discharge) 01/14/2025 Travel 12/23/2024 Telephone [facility] - [address], [address] [place] [address] Jose Vaughn MD Prior Authorization (Qulipta) 12/23/2024 Telephone [facility] Internal [address] [address] Joan Hartman FNP Lab Results 12/20/2024 Results Follow-Up [address] [address] Joan Hartman FNP VITAMIN B-12, VITAMIN D, [...] Description 04/17/2025 9:00 AM CDT Office Visit [facility] Medical Group Foot [facility]le Specialists - [address], [address]nd [place] [address] Deny Rodriguez, LAURIE [address] [place] [address] 05/28/2025 10:40 AM CDT Office Visit [facility] Medical Group Multispecialty Care - [address], [address] [place] [address] Jose Vaughn MD 3 [place] [address] Health Maintenance Due Date Last Done Comments [...] 08/2021, 05/08/2021, Additional history exists PHQ-2 (Physician [place]) Completed 12/12/2024 Meningococcal B Vaccine Aged Out [...] Final Result * MG SCREENING W KIMBERLY JAHIARA DIGI (05/07/2024 11:06 AM CDT) Anatomical Region Laterality Modality Breast Bilateral Mammography 05/07/2024 12:0 9 PM CDT Impressions 05/07/2024 12:09 PM CDT IMPRESSION: No mammographic evidence of malignancy. Recommendation: 1: Routine Screening Bilateral in 1 Year Assessment: ACR BI-RADS 2 - BENIGN FINDING(S) Ordered By: JOAN HARTMAN Interpreted By: Christiano Jaramillo MD, 05/07/2024 12:09 PM Narrative 05/07/2024 12:09 PM CDT [address] [place] [address] Examination: Digital screening mammogram with CAD. Clinical [...] year would seem adequate. us Joan Hartman MOVABLE BULKHEAD INSTALLER MAMMO Final Result * HUMAN PAPILLOMAVIRUS, HIGH-RISK TYPES (06/03/2021 12:00 PM CDT) SPEC DESCRIPTION CERVICAL/END OCERVICAL 06/04/2021 9:29 AM CDT [facility] HPV DNA HIGH RISK NEGATIVE NEGATIVE 06/05/2021 11:14 AM CDT [facility] Comment:SEE CYTOLOGY REPORT 06/03/2021 12:0 0 PM CDT Joan FONSECA PATHOLOGY/CYTOLOGY ORDERABLES Final Result [facility] [address] [place] [address], * Cytopath Cerv/Vag Thin Layer (06/03/2021 8:38 AM CDT) THIN PREP PAP [facility] [address] [place] [address] Department of Pathology Pathology Report CERVICAL/VAGINAL PAP SMEAR REPORT Name: HASMUKH CARMEN Age: 4 1985 (Age: 35) Location: [facility] Sex: F Collected Date: 06/03/2021 [facility] #: [id number] Date Received: 06/04/2021 Date Reported: 06/09/2021 Provider: [...] not effective in detecting cervical adenocarcinoma. [facility] 06/03/2021 8:38 AM CDT 06/04/2021 8:38 AM CDT Comment:CERVICAL/ENDOCERVICA L Joan FONSECA PATHOLOGY/CYTOLOGY ORDERABLES Final Result [facility] [address] [place] [address], from Last 3 Months or Most Recently Relevant to Health Maintenance Insurance [employer] Care Teams Brick Cleaner Relationship Specialty Start Date End Date Joan Hartman FNP [address] [place] [address] PCP - General Nurse Practitioner Family 02/11/21
[2025-03-21] MEDS: HYDROmorphone HCL INJ (*CRX) 2 MG/ML VIAL 1 MG IM (17:24)
[2025-03-21] MEDS: ONDANSETRON HCL ODT 4 MG TABLET PO (17:24)
[2025-03-21 17:33] LABS: Add Urine Microscopic? NO; Appearance Urine Clear (Clear); Glucose Urine UA Negative (Negative); Leukocyte Esterase Ur Negative LEU/UL (Negative); Nitrate Urine Negative (Negative); Specific Grav Ur >= 1.030 (1.010-1.020)
[2025-03-21 17:50] VITALS: BP 128/74; PULSE 84; RESP 20; O2SAT 97
== END 2025-03-21 17:50 | disposition home or self-care (01) ==
PROVIDERS: Emergency Provider Internal Medicine Critical Care Medicine; PCP Nurse Practitioner Family
DX: M54.50 Low back pain, unspecified (principal); F17.200 Nicotine dependence, unspecified, uncomplicated
CPT/HCPCS: 81003; 96372; 99283; A9270; J1171

== ENCOUNTER 2025-04-10 20:25 | Emergency (ER) | payer OTHER, SELFPAY ==
--- NOTE | ~2025-04-10 | XR_ITS ---
EXAM: XR lumbar spine 2-3V DATE: 04/10/2025 21:00 HISTORY: back pain AFTER BENDING . COMPARISON: CT abdomen pelvis 09/24/2024. FINDINGS: Cholecystectomy clips. 5 nonrib-bearing lumbar-type vertebral bodies. Pedicles intact. 7 mm anterolisthesis at L4-5. Vertebral body heights preserved. Severe degenerative disc disease at L4-5. Mild degenerative disc disease at L5-S1. Mild lower lumbar facet hypertrophy and sclerosis. Bilatera l pars defects at L4. Old unfused or chronically fractured L3 spinous process tip. No acute fracture or dislocation. IMPRESSION: Worsening grade 1 anterolisthesis at L4-5 with chronic bilateral pars defects. No acute f racture detected in the lumbar spine. Reviewed, dictated and finalized at location K. IMPRESSION: Worsening grade 1 anterolisthesis at L4-5 with chronic bilateral pa rs defects. No acute fracture detected in the lumbar spine.
[2025-04-10 20:26] VITALS: BP 127/68; PULSE 102; RESP 15; TEMP 36.6; O2SAT 98
--- OUTSIDE RECORDS SUMMARY | 2025-04-10 20:27 | XMS_ITS | Encounter Summary ---
Author Organization [facility] Address [facility] [place] [address] Care Team Providers Care Software Implementation Specialist Name Role Phone Kat Jimenez Primary Care Provider [phone] Encounter Details Date Type Department Care Team (Late st Contact Info) Description 11/28/2022 MyChart Message Enc [facility] Family & Internal Medicine [facility] [address] [place] [address] Kat Jmienez FNP [address] [place] [address] Still no hydrocodone vraylar Social [...] Description 04/17/2025 9:00 AM CDT Office Visit [facility] - [address], 2nd [place] [address] Deny Rodriguez DPM [address] [place], [place] [address] 05/28/2025 10:40 AM CDT Office Visit [facility] Multispecialty Care - [address], [address] [place] [address] Jose Vaughn MD [address] [place] [address] [place] [address] documented as of this encounter Visit Diagnoses Not on filedocumented in this encounter Additional Health Concerns Assessment Noted Time PHQ-9 Depression Total Score: 0 11/26/19 22 2:34 PM CDT documented as of this encounter Care Teams Software Implementation Specialist Relationship Specialty Start Date End Date Kat Jimenez FNP [address] [place] [id number] PCP - General Nurse Practitioner Family 02/11/21 documented as of this encounter
--- OUTSIDE RECORDS SUMMARY | 2025-04-10 20:27 | XMS_ITS | Encounter Summary ---
Author Organization [facility] Address [facility] [place] [address] Care Team Providers Care Machine Brusher Name Role Phone Kat Jimenez Primary Care Provider [phone] Encounter Details Date Type Department Care Team (Late st Contact Info) Description 03/01/2021 MyChart Message Enc [facility] Group Family & Internal Medicine [facility] [address] [place] [address] Kat Jimenez FNP [address] [place] [address] RE: Other Social History Tobacco [...] Description 04/17/2025 9:00 AM CDT Office Visit [facility] - [address], 2nd [place] [address] Deny Rodriguez DPM [address] [place] [address] 05/28/2025 10:40 AM CDT Office Visit [facility] Multispecialty Care - [facility] [address] [facility], [address] [place] [address] Jose Vaughn MD 3 [place] [address] documented as of this encounter Visit Diagnoses Not on filedocumented in this encounter Additional Health Concerns Infection Onset Date Last Indicated Resolved Time COVID-19 Rule Out 05/10/2021 05/10/2021 05/12/2021 12:30 AM CDT Assessment Noted Time PHQ-9 Depression Total Score: 25 06/2 021 3:00 PM CDT documented as of this encounter Care Teams Machine Brusher Relationship Specialty Start Date End Date Kat Jimenez FNP [address] [place] [address] PCP - General Nurse Practitioner Family 02/11/21 documented as of this encounter
--- OUTSIDE RECORDS SUMMARY | 2025-04-10 20:27 | XMS_ITS | Encounter Summary ---
Author Organization [facility] Address [facility] [place] [address] Care Team Providers Care Turn Down Man Name Role Phone Kat Jimenez Primary Care Provider [phone] Encounter Details Date Type Department Care Team (Late st Contact Info) Description 09/10/2022 MyChart Message Enc [facility] Medical Group Family & Internal Medicine [facility] [address] [place] [address] Kat Jimenez FNP [address] [place] [address] Ability to work Social History [...] Coronavirus/COVID-19? No / Unsure 08/17/2022 2:09 PM MATERIALS PLANNING ANALYST documented as of this encounter Plan of Treatment Upcoming Encounters Date Type Department Care Team (Late st Contact Info) Description 04/17/2025 9:00 AM CDT Office Visit [facility]le Specialists - [place] [address] [place] [address], 2nd [place] [address] Deny Rodriguez, DPM [address] [place] [address] 05/28/2025 10:40 AM CDT Office Visit [facility] Multispecialty Care - [facility] 3 [facility], [address] [place] [address] Jose Vaughn MD 3 [place] [address] documented as of this encounter Visit Diagnoses Not on filedocumented in this encounter Additional Health Concerns Assessment Noted Time PHQ-9 Depression Total Score: 0 11/26/19 22 2:34 PM CDT documented as of this encounter Care Teams Turn Down Man Relationship Specialty Start Date End Date Kat Jimenez FNP [address] [place] [address] PCP - General Nurse Practitioner Family 02/11/21 documented as of this encounter
--- OUTSIDE RECORDS SUMMARY | 2025-04-10 20:27 | XMS_ITS | Encounter Summary ---
Author Organization [facility] Address [facility] [place] [address] Care Team Providers Care Strategic Insights Lead Name Role Phone Kat Jimenez Primary Care Provider [phone] Encounter Details Date Type Department Care Team (Late st Contact Info) Description 07/25/2022 MyChart Message Enc [facility] Medical Group Family & Internal Medicine [facility] [address] [place] [address] Kat Jimenez FNP [address] [place] [address] Severe pain Social History Tobacco [...] Coronavirus/COVID-19? No / Unsure 07/13/2022 2:24 PM PLANT MANAGER documented as of this encounter Plan of Treatment Upcoming Encounters Date Type Department Care Team (Late st Contact Info) Description 04/17/2025 9:00 AM CDT Office Visit [facility] Medical [facility] Foot & Ankle Specialists - [place] [address] [place] [address], 2nd [place] [address] Deny Rodriguez, LAURIE [address] [place] [address] 05/28/2025 10:40 AM CDT Office Visit [facility] Multispecialty Care - [address], [address] [place] [address] Jose Vaughn MD 3 [place] [address] documented as of this encounter Visit Diagnoses Not on filedocumented in this encounter Additional Health Concerns Assessment Noted Time PHQ-9 Depression Total Score: 0 11/26/19 22 2:34 PM CDT documented as of this encounter Care Teams Strategic Insights Lead Relationship Specialty Start Date End Date Kat Jimenez FNP [address] [place] [address] PCP - General Nurse Practitioner Family 02/11/21 documented as of this encounter
--- OUTSIDE RECORDS SUMMARY | 2025-04-10 20:27 | XMS_ITS | Encounter Summary ---
Author Organization [facility] Address [place] [address] Care Team Providers Care Machine Fancy Stitcher Name Role Phone Kat Jimenez Primary Care Provider [phone] Encounter Details Date Type Department Care Team (Late st Contact Info) Description 05/05/2021 MyChart Message Enc [facility] Medical Group Family & Internal Medicine [facility] [address] [place] [address] Kat Jimenez FNP [address] [place] [address] RE: Referral Request Social History [...] Description 04/17/2025 9:00 AM CDT Office Visit [facility] Medical Group Foot & Ankle Specialists - [place] [address] [facility], 2nd [place] [address] Deny Rodriguez, DPOlayinka [address] [place] [address] 05/28/2025 10:40 AM CDT Office Visit [facility] Multispecialty Care - [facility] 3 [facility], [address] [place] [address] Jose Vaughn MD 3 [place] [address] documented as of this encounter Visit Diagnoses Not on filedocumented in this encounter Additional Health Concerns Infection Onset Date Last Indicated Resolved Time COVID-19 Rule Out 05/10/2021 05/10/2021 05/12/2021 12:30 AM CDT Assessment Noted Time PHQ-9 Depression Total Score: 25 021 3:00 PM CDT documented as of this encounter Care Teams Machine Fancy Stitcher Relationship Specialty Start Date End Date Kat Jimenez FNP [address] [place] [address] PCP - General Nurse Practitioner Family 02/11/21 documented as of this encounter
--- OUTSIDE RECORDS SUMMARY | 2025-04-10 20:27 | XMS_ITS | Encounter Summary ---
Author Organization [facility] Address [address] [place] [address] Care Team Providers Care Executive Producer Name Role Phone Juliann Ambrosio MD Primary Care Provider [phone] Kat Jimenez Primary Care Provider [phone] Encounter Details Date Type Department Care Team (Late Contact Info) Description 02/02/2019 Abstract SFL CONVERSION [address] [place] [address] [place] [address] , Generic Conversion, Social History Tobacco Use [...] Description 04/17/2025 9:00 AM CDT Office Visit [facility] Medical Group Foot & Ankle Specialists - [address], 2nd [place] [address] Deny Rodriguez DPM [address] [place], [place] [address] 05/28/2025 10:40 AM CDT Office Visit [facility] Medical Group Multispecialty Care - [address], [address] [place] [address] Jose Vaughn MD [address] [place] [address] documented as of this encounter Visit Diagnoses Not on filedocumented in this encounter Additional Health Concerns Infection Onset Date Last Indicated Resolved Time COVID-19 Rule Out 05/10/2021 05/10/2021 05/12/2021 12:30 AM CDT documented as of this encounter Care Teams Executive Producer Relationship Specialty Start Date End Date Juliann Ambrosio MD PCP - General INTERNAL MEDICINE 12/29/20 02/10/21 Kat Jimenez FNP [address] [place] [address] PCP - General Nurse Practitioner Family 02/11/21 documented as of this encounter
--- OUTSIDE RECORDS SUMMARY | 2025-04-10 20:27 | XMS_ITS | Encounter Summary ---
Author Organization [facility] Address [place] [address] Care Team Providers Care Director Of Diversity And Inclusion Name Role Phone Kat Jimenez Primary Care Provider [phone] Encounter Details Date Type Department Care Team (Late st Contact Info) Description 05/04/2024 MyChart Message Enc [facility] Medical Group Family & Internal Medicine [facility] [address] [place] [address] Kat Jimenez FNP [address] [place], [place] [phone] Meds pain Social History Tobacco Use Types Packs/Day Years Used Date Smoking Tobacco: Every Day Cigarettes 0.5 22 Started: 08/30/1999; Last attempted to quit: 08/30/2019 [...] Description 04/17/2025 9:00 AM CDT Office Visit [facility] Medical Group Foot & Ankle Specialists - [place] [address] [facility], 2nd [place] [address] Deny Rodriguez, DPM [address] [place] [address] 05/28/2025 10:40 AM CDT Office Visit [facility] Multispecialty Care - [facility] 3 [facility], [address] [place] [address] Jose Vaughn MD 3 [place] [address] documented as of this encounter Visit Diagnoses Not on filedocumented in this encounter Additional Health Concerns Assessment Noted Time PHQ-9 Depression Total Score: 10 024 1:37 PM CDT documented as of this encounter Care Teams Director Of Diversity And Inclusion Relationship Specialty Start Date End Date Kat Jimenez FNP [address] [place] [address] PCP - General Nurse Practitioner Family 02/11/21 documented as of this encounter
--- OUTSIDE RECORDS SUMMARY | 2025-04-10 20:27 | XMS_ITS | Encounter Summary ---
Author Organization [facility] Address [address] [place] [address] Care Team Providers Care Log Loader Helper Name Role Phone Kat Jimenez RAYMUNDO Primary Care Provider [phone] Encounter Details Date Type Department Care Team (Late st Contact Info) Description 09/16/2022 MyChart Message Enc [facility] Medical Group Multispecialty Care - [facility] 3 [facility], [address] [place] [address] Jerson Jacques MD 3 [place] [address] Dermal implants /MRI Social History Tobacco Use [...] Coronavirus/COVID-19? No / Unsure 09/19/2022 1:02 PM TOOL ROOM SUPERVISOR documented as of this encounter Plan of Treatment Upcoming Encounters Date Type Department Care Team (Late st Contact Info) Description 04/17/2025 9:00 AM CDT Office Visit [facility] Ankle Specialists - [address], 2nd [place] [address] Deny Rodriguez DPM [address] [place] [address] 05/28/2025 10:40 AM CDT Office Visit [facility] Multispecialty Care - [facility] 3 [facility], [address] [place] [address] Jose Vaughn MD 3 [place] [address] documented as of this encounter Visit Diagnoses Not on filedocumented in this encounter Additional Health Concerns Assessment Noted Time PHQ-9 Depression Total Score: 0 11/26/19 22 2:34 PM CDT documented as of this encounter Care Teams Log Loader Helper Relationship Specialty Start Date End Date Kat Jimenez FNP [address] [place] [address] PCP - General Nurse Practitioner Family 02/11/21 documented as of this encounter
--- OUTSIDE RECORDS SUMMARY | 2025-04-10 20:27 | XMS_ITS | Encounter Summary ---
Author Organization [facility] Address [facility] [place] [address] Care Team Providers Care Hole Digger Operator Name Role Phone Kat Jimenez Primary Care Provider [phone] Encounter Details Date Type Department Care Team (Late st Contact Info) Description 10/25/2021 MyChart Message Enc [facility] Medical Group Family & Internal Medicine [facility] [place] [facility] [address] [place] [address] Kat Jimenez FNP [address] [place], [place] [phone] [place] Social History Tobacco Use Types Packs/Day [...] Coronavirus/COVID-19? No / Unsure 10/25/2021 12:46 PM VP DATA documented as of this encounter Plan of Treatment Upcoming Encounters Date Type Department Care Team (Late st Contact Info) Description 04/17/2025 9:00 AM CDT Office Visit [facility] Medical [facility] Foot & Ankle Specialists - [place] [address] [place] [address], 2nd [place] [address] Deny Rodriguez, LAURIE [address] [place] [address] 05/28/2025 10:40 AM CDT Office Visit [facility] Multispecialty Care - [address], [address] [place] [address] Jose Vaughn MD 3 [place] [address] documented as of this encounter Visit Diagnoses Not on filedocumented in this encounter Additional Health Concerns Assessment Noted Time PHQ-9 Depression Total Score: 25 021 3:00 PM CDT documented as of this encounter Care Teams Hole Digger Operator Relationship Specialty Start Date End Date Kat Jimenez FNP [address] [place] [address] PCP - General Nurse Practitioner Family 02/11/21 documented as of this encounter
--- OUTSIDE RECORDS SUMMARY | 2025-04-10 20:27 | XMS_ITS | Clinical Summary ---
Author Organization [facility] Address [address] [place] [address] Care Team Providers Care Sustainable Communities Designer Name Role Phone Kat Jimenez YODIT-PAYMENT SPECIALIST Primary Care Provider [phone] Source Comments [facility],non-owned Affiliates and Associated Physician Practices is amultiple site organization consisting of ambulatory clinics and hospital sitesin [place], [place], [place] and [place]. This disclosure is being madepursuant to the Care Everywhere program and may not contain all information available regarding this patient. Last updated 18.[facility] Allergies Active Allergy Reactions Criticality Noted Date [...] vitamin D, ergocalciferol , (Drisdol) 1.25 MG (46764 UT) capsule Take 1 (one) capsule by [...] mouth once daily 5 Active HYDROcodone-ac etaminophen (Avoca) 10-325 MG tablet Take 1 (one) tablet [...] on file Legal Sex Female 9:49 AM FLOOR LAYER Gender Identity Not on file Sexual Orientation Not on file Last Filed Vital Signs Vital Sign Reading Time Taken Comments Blood Pressure 123/74 10/08/2024 3:00 PM FLOOR LAYER Pulse 85 10/08/2024 3:00 PM FLOOR LAYER Temperature 36.6 C (97.9 F) 10/08/2024 2:36 PM FLOOR LAYER Respiratory Rate 19 10/08/2024 3:00 PM FLOOR LAYER Oxygen Saturation 92% 10/08/2024 3:00 PM FLOOR LAYER Inhaled Oxygen Concentration - - Weight 99.9 kg (220 lb 3.2 oz) 10/08/2024 11:11 AM FLOOR LAYER Height 162.6 cm (5' 4) 10/08/2024 11:11 AM FLOOR LAYER Body Mass Index 37.8 10/08/2024 11:11 AM FLOOR LAYER Plan of Treatment Health Maintenance Due Date [...] this topic Medical Devices Implanted Type Area Transition Teacher Device Identifier Shelf Expiration Date Model / Serial / Lot Stent Uret 5fr 24cm 2 Pgtl Crv 2 Drmtr Implanted:Qty : 1 on 09/24/2024 by Jocelyn Cervantes DO at [facility] Right: [employer]imed [id number] 03/20/2027 [id number] 20 / / [id number] Explanted Type Area Transition Teacher Device Identifier Shelf Expiration Date Model / Serial / Lot Stent Uret 6fr 22cm Sft Tria Explanted:Qty : 1 on 09/24/2024 by Jocelyn Cervantes DO at [facility] Right: [employer] Trung [id number] 02/08/2027 [id number] 10 / / [id number] [address] [place] [address] [facility] Advance Directives * Full Code (Latest Code Status on File) Date Activated Date Inactivated Comments 09/24/2024 5:31 AM 09/25/2024 1:11 PM Care Teams Sustainable Communities Designer Relationship Specialty Start Date End Date Kat Jimenez APRN-HAZEL [address] [place] [address] PCP - General 08/10/21
--- OUTSIDE RECORDS SUMMARY | 2025-04-10 20:27 | XMS_ITS | Encounter Summary ---
Author Organization [facility] Address [place] [address] Care Team Providers Care Jumpbasting Armhole Baster Name Role Phone Kat Jimenez Primary Care Provider [phone] Encounter Details Date Type Department Care Team (Late st Contact Info) Description 10/31/2021 MyChart Message Enc [facility] Medical Group Family & Internal Medicine [facility] [address] [place] [address] Kat Jimenez FNP [address] [place] [address] Tylenol with codeine Social History [...] Coronavirus/COVID-19? No / Unsure 10/29/2021 1:59 PM METAL CRAFTS TEACHER documented as of this encounter Progress Notes [...] the office and just got this message. L CRAFTS TEACHER documented in this encounter Plan of Treatment Upcoming Encounters Date Type Department Care Team (Late st Contact Info) Description 04/17/2025 9:00 AM CDT Office Visit [facility] Medical Group Foot & Ankle Specialists - [address], 2nd [place] [address] Deny Rodriguez DPM [address] [place] [address] 05/28/2025 10:40 AM CDT Office Visit [facility] Medical Group Multispecialty Care - [address], [address] [place] [address] Jose Vaughn MD 3 [place] [address] documented as of this encounter Visit Diagnoses Not on filedocumented in this encounter Additional Health Concerns Assessment Noted Time PHQ-9 Depression Total Score: 25 022 2:24 PM METAL CRAFTS TEACHER documented as of this encounter Care Teams Jumpbasting Armhole Baster Relationship Specialty Start Date End Date Kat Jimenez FNP [address] [place] [address] PCP - General Nurse Practitioner Family 02/11/21 documented as of this encounter
--- OUTSIDE RECORDS SUMMARY | 2025-04-10 20:27 | XMS_ITS | Encounter Summary ---
Author Organization [facility] Address [facility] [place] [address] Care Team Providers Care Special Police Officer Name Role Phone Kat Jimenez Primary Care Provider [phone] Encounter Details Date Type Department Care Team (Late st Contact Info) Description 09/16/2022 MyChart Message Enc [facility] Medical Group [facility] [address] [place] [address] Kat Jimenez FNP [address] [place] [address] MRI Social History Tobacco Use [...] Coronavirus/COVID-19? No / Unsure 09/19/2022 1:02 PM PARKING ANALYST documented as of this encounter Plan of Treatment Upcoming Encounters Date Type Department Care Team (Late st Contact Info) Description 04/17/2025 9:00 AM CDT Office Visit [facility] Medical Group Foot & Ankle Specialists - [address], 2nd [place] [address] Deny Rodriguez, DPM [address] [place] [address] 05/28/2025 10:40 AM CDT Office Visit [facility] Multispecialty Care - [facility] 3 [facility], [address] [place] [address] Jose Vaughn MD 3 [place] [address] documented as of this encounter Visit Diagnoses Not on filedocumented in this encounter Additional Health Concerns Assessment Noted Time PHQ-9 Depression Total Score: 0 11/26/19 22 2:34 PM CDT documented as of this encounter Care Teams Special Police Officer Relationship Specialty Start Date End Date Kat Jimenez FNP [address] [place] [address] PCP - General Nurse Practitioner Family 02/11/21 documented as of this encounter
--- OUTSIDE RECORDS SUMMARY | 2025-04-10 20:27 | XMS_ITS | Encounter Summary ---
Author Organization [facility] Address [facility] [place] [address] Care Team Providers Care Dungeon Master Name Role Phone Kat Jimenez Primary Care Provider [phone] Encounter Details Date Type Department Care Team (Late st Contact Info) Description 05/01/2021 MyChart Message Enc [facility] Medical Group Family & Internal Medicine [facility] [address] [place] [address] Kat Jimenez FNP [address] [place] [address] RE: FW: Other Social History [...] AM CDT Office Visit [facility] Medical [facility] Foot & Ankle Specialists - [place] [address] [facility], 2nd [place] [address] Deny Rodriguez, DPOlayinka [address] [place] [address] 05/28/2025 10:40 AM CDT Office Visit [facility] Multispecialty Care - [facility] 3 [facility], [address] [place] [address] Jose Vaughn MD 3 [place] [address] documented as of this encounter Visit Diagnoses Not on filedocumented in this encounter Additional Health Concerns Infection Onset Date Last Indicated Resolved Time COVID-19 Rule Out 05/10/2021 05/10/2021 05/12/2021 12:30 AM CDT Assessment Noted Time PHQ-9 Depression Total Score: 25 021 3:00 PM CDT documented as of this encounter Care Teams Dungeon Master Relationship Specialty Start Date End Date Kat Jimenez FNP [address] [place] [address] PCP - General Nurse Practitioner Family 02/11/21 documented as of this encounter
--- OUTSIDE RECORDS SUMMARY | 2025-04-10 20:27 | XMS_ITS | Encounter Summary ---
Author Organization [facility] Address [facility] [place] [address] Care Team Providers Care Lens Block Gauger Name Role Phone Kat Jimenez Primary Care Provider [phone] Encounter Details Date Type Department Care Team (Late st Contact Info) Description 02/22/2022 MyChart Message Enc [facility] Medical Group Family & Internal Medicine [facility] [address] [place] [address] Kat Jimenez FNP [address] [place] [address] Severe pain Social History Tobacco [...] 9:00 AM CDT Office Visit [facility] - [address], 2nd [place] [address] Deny Rodriguez, LAURIE [address] [place] [address] 05/28/2025 10:40 AM CDT Office Visit [facility] Multispecialty Care - Health system [address] [facility], [address] [place] [address] Joes Vaughn MD 3 [place] [address] documented as of this encounter Visit Diagnoses Not on filedocumented in this encounter Additional Health Concerns Assessment Noted Time PHQ-9 Depression Total Score: 0 11/26/19 22 2:34 PM CDT documented as of this encounter Care Teams Lens Block Gauger Relationship Specialty Start Date End Date Kat Jimenez FNP [address] [place] [address] PCP - General Nurse Practitioner Family 6/17/21 documented as of this encounter
--- OUTSIDE RECORDS SUMMARY | 2025-04-10 20:27 | XMS_ITS | Encounter Summary ---
Author Organization [facility] Address [facility] [place] [address] Care Team Providers Care Prescription Benefit Specialist Name Role Phone Kat Jimenez Primary Care Provider [phone] Encounter Details Date Type Department Care Team (Late st Contact Info) Description 07/25/2022 MyChart Message Enc [facility] Medical Group Family & Internal Medicine [facility] [address] [place] [address] Kat Jimenez FNP [address] [place], [place] [id number] Pre-authorization Social History Tobacco Use Types Packs/Day [...] Coronavirus/COVID-19? No / Unsure 07/13/2022 2:24 PM GROUND SERVICES INSTRUCTOR documented as of this encounter Plan of Treatment Upcoming Encounters Date Type Department Care Team (Late st Contact Info) Description 04/17/2025 9:00 AM CDT Office Visit [facility] Medical [facility]le Specialists - [address], 2nd [place] [address] Deny Rodriguez, LAURIE [address] [place] [address] 05/28/2025 10:40 AM CDT Office Visit [facility] Multispecialty Care - [facility] 3 [facility], [address] [place] [address] Jose Vaughn MD 3 [place] [address] documented as of this encounter Visit Diagnoses Not on filedocumented in this encounter Additional Health Concerns Assessment Noted Time PHQ-9 Depression Total Score: 0 11/26/19 22 2:34 PM CDT documented as of this encounter Care Teams Prescription Benefit Specialist Relationship Specialty Start Date End Date Kat Jimenez FNP [address] [place] [address] PCP - General Nurse Practitioner Family 02/11/21 documented as of this encounter
--- OUTSIDE RECORDS SUMMARY | 2025-04-10 20:27 | XMS_ITS | Encounter Summary ---
Author Organization [facility] Address [facility] [place] [address] Care Team Providers Care Veneer Department Manager Name Role Phone Kat Jimenez Primary Care Provider [phone] Encounter Details Date Type Department Care Team (Late st Contact Info) Description 04/15/2021 MyChart Message Enc [facility] Medical Group Family & Internal Medicine [facility] [address] [place] [address] Kat Jimenez FNP [address] [place] [address] RE: FW: Question Social History [...] Description 04/17/2025 9:00 AM CDT Office Visit [facility]le Specialists - [place] [address] [facility], 2nd [place] [address] Deny Rodriguez, LAURIE [address] [place] [address] 05/28/2025 10:40 AM CDT Office Visit [facility] Multispecialty Care - [facility] 3 [facility], [address] [place] [address] Jose Vaughn MD 3 [place] [address] documented as of this encounter Visit Diagnoses Not on filedocumented in this encounter Additional Health Concerns Infection Onset Date Last Indicated Resolved Time COVID-19 Rule Out 05/10/2021 05/10/2021 05/12/2021 12:30 AM CDT Assessment Noted Time PHQ-9 Depression Total Score: 25 021 3:00 PM CDT documented as of this encounter Care Teams Veneer Department Manager Relationship Specialty Start Date End Date Kat Jimenez FNP [address] [place] [address] PCP - General Nurse Practitioner Family 02/11/21 documented as of this encounter
--- OUTSIDE RECORDS SUMMARY | 2025-04-10 20:27 | XMS_ITS | Encounter Summary ---
Author Organization [facility] Address [facility] [place] [address] Care Team Providers Care Executive Kitchen Manager Name Role Phone Kat Jimenez Primary Care Provider [phone] Encounter Details Date Type Department Care Team (Late st Contact Info) Description 03/28/2021 MyChart Message Enc [facility] Medical Group Family & Internal Medicine [facility] [address] [place] [address] Kat Jimenez FNP [address] [place] [address] Referral Request Social History Tobacco [...] 9:00 AM CDT Office Visit [facility] - [place] [address] [facility], 2nd [place] [address] Deny Rodriguez, DPM [address] [place] [address] 05/28/2025 10:40 AM CDT Office Visit [facility] Multispecialty Care - [facility] 3 [facility], [address] [place] [address] Jose Vaughn MD 3 [place] [address] documented as of this encounter Visit Diagnoses Not on filedocumented in this encounter Additional Health Concerns Infection Onset Date Last Indicated Resolved Time COVID-19 Rule Out 05/10/2021 05/10/2021 05/12/2021 12:30 AM CDT Assessment Noted Time PHQ-9 Depression Total Score: 25 021 3:00 PM CDT documented as of this encounter Care Teams Executive Kitchen Manager Relationship Specialty Start Date End Date Kat Jimenez FNP [address] [place] [address] PCP - General Nurse Practitioner Family 02/11/21 documented as of this encounter
--- OUTSIDE RECORDS SUMMARY | 2025-04-10 20:27 | XMS_ITS | Encounter Summary ---
Author Organization [facility] Address [facility] [address] Care Team Providers Care Blacksmith Apprentice Name Role Phone Kat Jimenez Primary Care Provider [phone] Encounter Details Date Type Department Care Team (Late st Contact Info) Description 10/06/2021 MyChart Message Enc [facility] Medical Group Family & Internal Medicine [facility] [address] [place] [address] Kat Jimenez FNP [address] [place], [place] [phone] Med refills Social History Tobacco Use Types [...] a pain management to get her in. H MECHANIC documented in this encounter Plan of Treatment Upcoming Encounters Date Type Department Care Team (Late st Contact Info) Description 04/17/2025 9:00 AM CDT Office Visit [facility] Medical [facility] Foot & Ankle Specialists - [address], 2nd [place] [address] Deny Rodriguez, DPM [address] [place] [address] 05/28/2025 10:40 AM CDT Office Visit [facility] Multispecialty Care - [facility] 3 [facility], [address] [place] [address] Jose Vaughn MD 3 [place] [address] documented as of this encounter Visit Diagnoses Not on filedocumented in this encounter Additional Health Concerns Assessment Noted Time PHQ-9 Depression Total Score: 25 021 3:00 PM CDT documented as of this encounter Care Teams Blacksmith Apprentice Relationship Specialty Start Date End Date Kat Jimenez FNP [address] [place] [address] PCP - General Nurse Practitioner Family 02/11/21 documented as of this encounter
--- OUTSIDE RECORDS SUMMARY | 2025-04-10 20:27 | XMS_ITS | Clinical Summary ---
Author Organization [facility] Address [facility] [place] [address] Care Team Providers Care Apartment Groundskeeper Name Role Phone Kat Jimenez NP Primary Care Provider [phone] Kat Jimenez NP Unavailable [phone] Kat Jimenez NP Unavailable [phone] Allergies Active Allergy Reactions Criticality Noted Date [...] on file Legal Sex Female 8:11 AM AIRCRAFT STRESS ANALYST Gender Identity Not on file Sexual Orientation Not on file Obstetrics History Last Filed Vital Signs Vital Sign Reading Time Taken Comments Blood Pressure 139/100 08/24/2021 3:04 PM AIRCRAFT STRESS ANALYST Pulse 91 08/24/2021 3:04 PM AIRCRAFT STRESS ANALYST Temperature 36.5 C (97.7 F) 08/24/2021 3:04 PM AIRCRAFT STRESS ANALYST Respiratory Rate 20 08/24/2021 3:04 PM AIRCRAFT STRESS ANALYST Oxygen Saturation 98% 08/24/2021 3:04 PM AIRCRAFT STRESS ANALYST Inhaled Oxygen Concentration - - Weight 103.4 kg (228 lb) 08/24/2021 3:04 PM AIRCRAFT STRESS ANALYST Height 160 cm (5' 3) 08/03/2021 3:17 PM AIRCRAFT STRESS ANALYST Body Mass Index 40.39 08/03/2021 3:17 PM AIRCRAFT STRESS ANALYST Plan of Treatment Not on file Goals [...] Payer ID:[id number] (NAIC) Type:MEDICAID RISK OTHER Address: [address] [place] [address] [facility] Care Teams Apartment Groundskeeper Relationship Specialty Start Date End Date Kat Jimenez NP [address] [place] [address] PCP - General Nurse Practitioner 05/11/21 Kat Jimenez NP [address] [place] [address] Nurse Practitioner 05/11/21 Kat Jimenez NP [address] [place] [address] Nurse Practitioner Nurse Practitioner 04/02/21
--- OUTSIDE RECORDS SUMMARY | 2025-04-10 20:27 | XMS_ITS | Encounter Summary ---
Author Organization [facility] Address [facility] [place] [address] Care Team Providers Care Spinning Machine Tender Name Role Phone Kat Jimenez Primary Care Provider [phone] Encounter Details Date Type Department Care Team (Late st Contact Info) Description 12/19/2022 MyChart Message Enc [facility] Medical Group Family & Internal Medicine [facility] [address] [place] [address] Kat Jimenez FNP [address] [place] [address] Referral to orthopedic doctor Social [...] Description 04/17/2025 9:00 AM CDT Office Visit [facility] Medical [facility] Foot & Ankle Specialists - [place] [address] [place] [address], 2nd [place] [address] Deny Rodriguez, LAURIE [address] [place] [address] 05/28/2025 10:40 AM CDT Office Visit [facility] Multispecialty Care - [address], [address] [place] [address] Jose Vaughn MD 3 [place] [address] documented as of this encounter Visit Diagnoses Not on filedocumented in this encounter Additional Health Concerns Assessment Noted Time PHQ-9 Depression Total Score: 0 11/26/19 22 2:34 PM CDT documented as of this encounter Care Teams Spinning Machine Tender Relationship Specialty Start Date End Date Kat Jimenez FNP [address] [place] [address] PCP - General Nurse Practitioner Family 02/11/21 documented as of this encounter
--- OUTSIDE RECORDS SUMMARY | 2025-04-10 20:27 | XMS_ITS | Encounter Summary ---
Author Organization [facility] Address [facility] [place] [address] Care Team Providers Care Trauma Counsellor Name Role Phone Kat Jimenez RAYMUNDO Primary Care Provider [phone] Encounter Details Date Type Department Care Team (Late Contact Info) Description 07/06/2023 MyChart Message Enc [facility] Medical [facility] Family & Internal Medicine [address] [address] [facility] Provider Referal Social History Tobacco Use [...] 9:00 AM CDT Office Visit [facility] - [place] [address] [facility], 2nd [place] [address] Deny Rodriguez, LAURIE [address] [place] [address] 05/28/2025 10:40 AM CDT Office Visit [facility] Care - [facility] 3 [facility], [address] [place] [address] Jose Vaughn MD 3 [place] [address] documented as of this encounter Visit Diagnoses Not on filedocumented in this encounter Additional Health Concerns Assessment Noted Time PHQ-9 Depression Total Score: 25 023 2:25 PM CDT documented as of this encounter Care Teams Trauma Counsellor Relationship Specialty Start Date End Date Kat Jimenez FNP [address] [place] [address] PCP - General Nurse Practitioner Family 02/11/21 documented as of this encounter
--- OUTSIDE RECORDS SUMMARY | 2025-04-10 20:27 | XMS_ITS | Encounter Summary ---
Author Organization [facility] Address [facility] [place] [address] Care Team Providers Care Sisal Picker Name Role Phone Kat Jimenez Primary Care Provider [phone] Encounter Details Date Type Department Care Team (Late st Contact Info) Description 07/25/2022 MyChart Message Enc [facility] Medical Group Family & Internal Medicine [facility] [address] [place] [address] Kat Jimenez FNP [address] [place], [place] [phone] Pre-authorization Social History Tobacco Use Types Packs/Day [...] Coronavirus/COVID-19? No / Unsure 07/13/2022 2:24 PM TELEPHONE INTERCEPTOR OPERATOR documented as of this encounter Plan of Treatment Upcoming Encounters Date Type Department Care Team (Late st Contact Info) Description 04/17/2025 9:00 AM CDT Office Visit [facility] Medical [facility] Foot & Ankle Specialists - [address], [address]nd [place] [address] Deny Rodriguez, LAURIE [address] [place] [address] 05/28/2025 10:40 AM CDT Office Visit [facility] Multispecialty Care - [facility] 3 [facility], [address] [place] [address] Jose Vaughn MD 3 [place] [address] documented as of this encounter Visit Diagnoses Not on filedocumented in this encounter Additional Health Concerns Assessment Noted Time PHQ-9 Depression Total Score: 0 11/26/19 22 2:34 PM CDT documented as of this encounter Care Teams Sisal Picker Relationship Specialty Start Date End Date Kat Jimenez FNP [address] [place] [address] PCP - General Nurse Practitioner Family 02/11/21 documented as of this encounter
--- OUTSIDE RECORDS SUMMARY | 2025-04-10 20:28 | XMS_ITS | Encounter Summary ---
Author Organization [facility] Address [address] [place] [address] Care Team Providers Care Boomboat Operator Name Role Phone Kat Jimenez RAYMUNDO Primary Care Provider [phone] Encounter Details Date Type Department Care Team (Late st Contact Info) Description 06/04/2021 [employer] Message [employer] [facility] [employer] [address] [place] [address] [facility] Provider Re: Pt Amendment Social History Tobacco [...] Visit [facility] Medical [facility] Foot & Ankle Specialists - [address], 2nd [place] [address] Deny Rodriguez, DPOlayinka [address] [place] [address] 05/28/2025 10:40 AM CDT Office Visit [facility] Multispecialty Care - [facility] 3 [facility], [address] [place] [address] Jose Vaughn MD 3 [place] [address] documented as of this encounter Visit Diagnoses Not on filedocumented in this encounter Additional Health Concerns Assessment Noted Time PHQ-9 Depression Total Score: 25 021 3:00 PM CDT documented as of this encounter Care Teams Boomboat Operator Relationship Specialty Start Date End Date Kat Jimenez FNP [address] [place] [address] PCP - General Nurse Practitioner Family 02/11/21 documented as of this encounter
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
--- OUTSIDE RECORDS SUMMARY | 2025-04-10 20:28 | XMS_ITS | Encounter Summary ---
Author Organization [facility] Address Counts include 234 beds at the [facility] [place] [address] Care Team Providers Care Employment And Claims Aide Name Role Phone Kat Jimenez Primary Care Provider [phone] Encounter Details Date Type Department Care Team (Late st Contact Info) Description 05/31/2021 MyChart Message Enc [facility] Medical Group Family & Internal Medicine [facility] [address] [place] [address] Kat Jimenez FNP [address] [place] [address] RE: Question Social History Tobacco [...] Description 04/17/2025 9:00 AM CDT Office Visit [facility] Special[facility] - [place] [address] [facility], 2nd [place] [address] Deny Rodriguez, DPOlayinka [address] [place] [address] 05/28/2025 10:40 AM CDT Office Visit [facility] Multispecialty Care - [facility] [address] [facility], [address] [place] [address] Jose Vaughn MD [address] [place] [address] documented as of this encounter Visit Diagnoses Not on filedocumented in this encounter Additional Health Concerns Assessment Noted Time PHQ-9 Depression Total Score: 25 02/11/ 021 3:00 PM CDT documented as of this encounter Care Teams Employment And Claims Aide Relationship Specialty Start Date End Date Kat Jimenez FNP [address] [place] [address] PCP - General Nurse Practitioner Family 02/11/21 documented as of this encounter
--- OUTSIDE RECORDS SUMMARY | 2025-04-10 20:28 | XMS_ITS | Encounter Summary ---
Author Organization [facility] Address [facility] [place] [address] Care Team Providers Care Asset Administrator Name Role Phone Kat Jimenez Primary Care Provider [phone] Encounter Details Date Type Department Care Team (Late st Contact Info) Description 06/05/2021 MyCOwnerListenst Message Enc [facility] Medical Group Family & Internal Medicine [facility] [address] [place] [address] Kat Jimenez FNP [address] [place] [address] RE: FW: Question Social History [...] Description 04/17/2025 9:00 AM CDT Office Visit [facility] Medical [facility] Specialists - [address], 2nd [place] [address] Deny Rodriguez, LAURIE [address] [place] [address] 05/28/2025 10:40 AM CDT Office Visit [facility]pecialty Care - [facility] [address] [facility], [address] [place] [address] Jose Vaughn MD [address] [place] [address] documented as of this encounter Visit Diagnoses Not on filedocumented in this encounter Additional Health Concerns Assessment Noted Time PHQ-9 Depression Total Score: 25 02/11/ 021 3:00 PM CDT documented as of this encounter Care Teams Asset Administrator Relationship Specialty Start Date End Date Kat Jimenez FNP [address] [place] [address] PCP - General Nurse Practitioner Family 02/11/21 documented as of this encounter
--- NOTE | 2025-04-10 20:30 | PC.NURSE ---
DR HERNANDEZ AT THE BEDSIDE
--- NOTE | 2025-04-10 20:38 | PC.NURSE ---
PATIENT TO RADIOLOGY VIA WHEEL CHAIR
[2025-04-10] MEDS: methylPREDNISolone ACETATE 40 MG/ML VIAL 80 MG IM (20:46)
--- OUTSIDE RECORDS SUMMARY | 2025-04-10 20:56 | XMS_ITS | Encounter Summary ---
Author Organization [facility] [place] [address] Care Team Providers Care Panel Machine Tender Name Role Phone Kat Jimenez Primary Care Provider [phone] Encounter Details Date Type Department Care Team (Late st Contact Info) Description 03/01/2021 MyChart Message Enc [facility] Medical Group Family & Internal Medicine [facility] [address] [place] [address] Kat Jimenez FNP [address] [place] [address] RE: Other Social History Tobacco [...] Description 04/17/2025 9:00 AM CDT Office Visit [facility] Medical Group Foot [facility] Specialists - [address], 2nd [place] [address] Deny Rodriguez DPM [address] [place] [address] 05/28/2025 10:40 AM CDT Office Visit [facility] Medical Group Multispecialty Care - [facility] [address] [facility], [address] [place] [address] Jose Vaughn MD 3 [place] [address] documented as of this encounter Visit Diagnoses Not on filedocumented in this encounter Additional Health Concerns Infection Onset Date Last Indicated Resolved Time COVID-19 Rule Out 05/10/2021 05/10/2021 05/12/2021 12:30 AM CDT Assessment Noted Time PHQ-9 Depression Total Score: 25 06/2 021 3:00 PM CDT documented as of this encounter Care Teams Panel Machine Tender Relationship Specialty Start Date End Date Kat Jimenez FNP [address] [place] [address] PCP - General Nurse Practitioner Family 02/11/21 documented as of this encounter
--- OUTSIDE RECORDS SUMMARY | 2025-04-10 20:56 | XMS_ITS | Encounter Summary ---
Author Organization [facility] Address [facility] [place] [address] Care Team Providers Care Refractory Bricklayer Name Role Phone Kat Jimenez Primary Care Provider [phone] Encounter Details Date Type Department Care Team (Late st Contact Info) Description 04/15/2021 MyChart Message Enc [facility] Medical Group Family & Internal Medicine [facility] [address] [place] [address] Kat Jimenez FNP [address] [place] [address] RE: FW: Question Social History [...] 9:00 AM CDT Office Visit [facility] - [place] [address] [facility], 2nd [place] [address] Deny Rodriguez, LAURIE [address] [place] [address] 05/28/2025 10:40 AM CDT Office Visit [facility] Mult[facility]pecialty Care - [facility] [address] [facility], [address] [place] [address] Jose Vaughn MD 3 [place] [address] documented as of this encounter Visit Diagnoses Not on filedocumented in this encounter Additional Health Concerns Infection Onset Date Last Indicated Resolved Time COVID-19 Rule Out 05/10/2021 05/10/2021 05/12/2021 12:30 AM CDT Assessment Noted Time PHQ-9 Depression Total Score: 25 021 3:00 PM CDT documented as of this encounter Care Teams Refractory Bricklayer Relationship Specialty Start Date End Date Kat Jimenez FNP [address] [place] [address] PCP - General Nurse Practitioner Family 02/11/21 documented as of this encounter
--- OUTSIDE RECORDS SUMMARY | 2025-04-10 20:56 | XMS_ITS | Encounter Summary ---
Author Organization [facility] Address [address] [place] [address] Care Team Providers Care Product Managent Intern Name Role Phone Kat Jimenez RAYMUNDO Primary Care Provider [phone] Encounter Details Date Type Department Care Team (Late st Contact Info) Description 06/04/2021 Kids Movie Message [employer] [facility] [employer] [address] [place] [address] [facility] Provider Re: Pt Amendment Social History [...] Description 04/17/2025 9:00 AM CDT Office [facility] Medical [facility] Specialists - [address], [address]nd [place] [address] Deny Rodriguez, DPOlayinka [address] [place] [address] 05/28/2025 10:40 AM CDT Office Visit [facility]pecialty Care - [facility] [address] [facility], [address] [place] [address] Jose Vaughn MD [address] [place] [address] documented as of this encounter Visit Diagnoses Not on filedocumented in this encounter Additional Health Concerns Assessment Noted Time PHQ-9 Depression Total Score: 25 021 3:00 PM CDT documented as of this encounter Care Teams Product Managent Intern Relationship Specialty Start Date End Date Kat Jimenez FNP [address] [place] [address] PCP - General Nurse Practitioner Family 02/11/21 documented as of this encounter
--- OUTSIDE RECORDS SUMMARY | 2025-04-10 20:56 | XMS_ITS | Encounter Summary ---
Author Organization [facility] Address [facility] [place] [address] Care Team Providers Care Special Deputy Sheriff Name Role Phone Kat Jimenez Primary Care Provider [phone] Encounter Details Date Type Department Care Team (Late st Contact Info) Description 05/01/2021 MyChart Message Enc [facility] Medical Group Family & Internal Medicine [facility] [address] [place] [address] Kat Jimenez FNP [address] [place] [address] RE: FW: Other Social History [...] Description 04/17/2025 9:00 AM CDT Office Visit [facility] Medical [facility]le Special[facility] - [place] [address] [facility], 2nd [place] [address] Deny Rodriguez, DPOlayinka [address] [place] [address] 05/28/2025 10:40 AM CDT Office Visit [facility] Multispecialty Care - [facility] [address] [facility], [address] [place] [address] Jose Vaughn MD 3 [place] [address] documented as of this encounter Visit Diagnoses Not on filedocumented in this encounter Additional Health Concerns Infection Onset Date Last Indicated Resolved Time COVID-19 Rule Out 05/10/2021 05/10/2021 05/12/2021 12:30 AM CDT Assessment Noted Time PHQ-9 Depression Total Score: 25 021 3:00 PM CDT documented as of this encounter Care Teams Special Deputy Sheriff Relationship Specialty Start Date End Date Kat Jimenez FNP [address] [place] [address] PCP - General Nurse Practitioner Family 02/11/21 documented as of this encounter
--- OUTSIDE RECORDS SUMMARY | 2025-04-10 20:56 | XMS_ITS | Encounter Summary ---
Author Organization [facility] [place] [address] Care Team Providers Care Mold Repair Technician Name Role Phone Kat Jimenez RAYMUNDO Primary Care Provider [phone] Encounter Details Date Type Department Care Team (Late Contact Info) Description 07/06/2023 MyChart Message Enc [facility] Medical [facility] Family & Internal Medicine [address] [address] Rufus, [facility] Provider Referal Social History Tobacco Use Types [...] Description 04/17/2025 9:00 AM CDT Office Visit [facility] Specialists - [place] [address] [facility], 2nd [place] [address] Deny Rodriguez, LAURIE [address] [place] [address] 05/28/2025 10:40 AM CDT Office Visit [facility] Mult[facility]pecial[facility] Care - [facility] [address] [facility], [address] [place] [address] Jose Vaughn MD 3 [place] [address] documented as of this encounter Visit Diagnoses Not on filedocumented in this encounter Additional Health Concerns Assessment Noted Time PHQ-9 Depression Total Score: 25 023 2:25 PM CDT documented as of this encounter Care Teams Mold Repair Technician Relationship Specialty Start Date End Date Kat Jimenez FNP [address] [place] [address] PCP - General Nurse Practitioner Family 02/11/21 documented as of this encounter
--- OUTSIDE RECORDS SUMMARY | 2025-04-10 20:56 | XMS_ITS | Clinical Summary ---
Author Organization [facility] Address [facility] [place] [address] Care Team Providers Care Grocery Clerk Selling Name Role Phone Joan Hartman RAYMUNDO Primary Care Provider [phone] Allergies Active Allergy Reactions Criticality Noted Date [...] Active DULoxetine (CYMBALTA) 60 MG capsuleIndicati ons:Polyarthral rosei,Fibromyalgi a TAKE 1 CAPSULE (60 MG TOTAL) [...] recurrent major depressive disorder, without psychotic features ([facility]) 08/16/2023 Night terrors 01/09/2023 Chronic migraine without aur a without status migrainosus, not intractable 11/11/2022 Asthma ([facility]) 06/07/2022 Overview (03/28/2024): Last Assessment & Plan: Condition: stable Reviewed trigger avoidance and reviewed proper use of inhalers and rescue medications. Reviewed concerning signs/symptoms and ER precautions. Follow up in: three months with PCP Mixed hyperlipidemia 03/28/2022 Dysmenorrhea 11/22/2021 Menorrhagia with irregular cycle 11/22/2021 Hemorrhoids, unspecified hemorrhoid type 022 Overview (11/16/2021): Added automatically from request for surgery [id number] Dysphagia, unspecified type 06/11/2021 Overview (06/11/2021): Added automatically from request for surgery [id number] Class 3 severe obesity due t o excess calories with serious comorbidity and body mass index (BMI) of 45.0 to 49.9 in adult 02/12/2021 Chronic neck pain 02/12/2021 Overview (03/28/2024): Last Assessment & Plan: Condition: stable Follow up in: three months with PCP Polyarthralgia 02/12/2021 Fibromyalgia 02/12/2021 PTSD (post-traumatic stress disorder) 02/12/2021 Bipolar 1 disorder, manic, mild ([facility] ) 02/12/2021 Anxiety 02/12/2021 Vitamin D deficiency [...] Radiculopathy, lumbar region 04/08/2024 04/11/2024 Bipolar disorder ([facility]) 06/07/2022 04/11/2024 Overview (03/28/2024): Last Assessment & [...] (06/11/2021): Added automatically from request for surgery [id number] Other migraine without statu s migrainosus, not [...] Type Department Care Team Description 03/21/2025 Scan AirPlug INFO SRVCS Scanned, [facility] (SCAN) 03/06/2025 1:20 PM CDT - 03/06/2025 1:40 PM CDT Surgery [facility] [place] [address] [id number] Maria L Sarkar MD INJECTION EPIDURAL [id number], [id number] 03/06/2025 12:14 PM CDT - 03/06/2025 1:58 PM CDT Hospital Encounter [facility] Inter[facility] [place] [address] [id number] Maria L Sarkar MD Discharge Disposition: Home or Self Care (Routine Discharge) 03/06/2025 12:13 PM CDT Hospital Encounter [facility] [place] [address] [id number] Maria L Sarkar MD Discharge Disposition: Home or Self Care (Routine Discharge) 03/06/2025 Travel 03/05/2025 10:40 AM CDT Office Visit [facility] Multispecialty Care - [address], [address] [place] [address] Jose Vaughn MD Botox Procedure (migraines 155); Procedure (Trigger point) 03/05/2025 Scan AirPlug INFO SRVCS Scanned, Doc [facility] 03/05/2025 Travel 03/03/2025 Travel 02/19/2025 [facility] [address], [address] [place] [address] Jose Vaughn MD 02/10/2025 Telephone [facility] Medical Group Family & Internal Medicine [address] [address] Joan Hartman FNP Prior Authorization (budesonide-formotero l (SYMBICORT) 160-4.5 MCG/ACT inhaler) 01/14/2025 11:50 AM CDT - 01/14/2025 11:59 PM CDT Hospital Encounter [facility] Center [address] [place] [address] [id number] Stephanie Hope, EXTRUDER OPERATOR HELPER Discharge Disposition: Home or Self Care (Routine [...] Description 04/17/2025 9:00 AM CDT Office Visit [facility] Medical Group [facility] - [address], 2nd [place] [address] Deny Rodriguez, DPM [address] [place], [place] [phone] 05/28/2025 10:40 AM CDT Office Visit [facility] Medical Group Multispecialty Care - [facility] [address] [facility], [address] [place] [address] Jose Vaughn MD 3 [place] [address] Health Maintenance Due Date Last Done Comments [...] 08/2021, 05/08/2021, Additional history exists PHQ-2 (Physician [place]) Completed 12/12/2024 Meningococcal B Vaccine Aged Out [...] 12:09 PM Narrative 05/07/2024 12:09 PM CDT [address] [place] [address] Examination: Digital screening mammogram with CAD. Clinical [...] DESCRIPTION CERVICAL/END OCERVICAL 06/04/2021 9:29 AM CDT [facility] HPV DNA HIGH RISK NEGATIVE NEGATIVE 06/05/2021 11:14 AM CDT [facility] Comment:SEE CYTOLOGY REPORT 06/03/2021 12:0 0 PM CDT us Joan Hartman [facility] PATHOLOGY/CYTOLOGY ORDERABLES Final Result [facility] [address] [place] [address], * Cytopath Cerv/Vag Thin Layer (06/03/2021 8:38 AM CDT) THIN PREP PAP [facility] [address] [place] [address] Department of Pathology Pathology Report CERVICAL/VAGINAL PAP SMEAR REPORT Name: HASMUKH CARMEN Age: 4 1985 (Age: 35) Location: [facility] Sex: F Collected Date: 06/03/2021 Hospital #: [id number] Date Received: 06/04/2021 Date Reported: 06/09/2021 Provider: [...] is not effective in detecting cervical adenocarcinoma. [facility] 06/03/2021 8:38 AM CDT 06/04/2021 8:38 AM CDT Comment:CERVICAL/ENDOCERVICA L us Joan FONSECA PATHOLOGY/CYTOLOGY ORDERABLES Final Result [facility] [address] [place] [address], [place] [phone] from Last 3 Months or Most Recently Relevant to Health Maintenance Insurance [employer] Care Teams Grocery Clerk Selling Relationship Specialty Start Date End Date Joan Hartman FNP [address] [place] [address] PCP - General Nurse Practitioner Family 02/11/21
--- OUTSIDE RECORDS SUMMARY | 2025-04-10 20:56 | XMS_ITS | Encounter Summary ---
Author Organization [facility] Address [facility] [place] [address] Care Team Providers Care Handling Tech Name Role Phone Kat Jimenez Primary Care Provider [phone] Encounter Details Date Type Department Care Team (Late st Contact Info) Description 07/25/2022 MyChart Message Enc [facility] Medical Group Family & Internal Medicine [facility] [address] [place] [address] Kat Jimenez FNP [address] [place] [address] Severe pain Social History Tobacco [...] Coronavirus/COVID-19? No / Unsure 07/13/2022 2:24 PM FURNACE WORKER documented as of this encounter Plan of Treatment Upcoming Encounters Date Type Department Care Team (Late st Contact Info) Description 04/17/2025 9:00 AM CDT Office Visit [facility] Medical [facility] [facility] - [place] [address] [place] [address], 2nd [place] [address] Deny Rodriguez, LAURIE [address] [place] [address] 05/28/2025 10:40 AM CDT Office Visit [facility] Multispecialty Care - [address], [address] [place] [address] Jose Vaughn MD [address] [place] [address] documented as of this encounter Visit Diagnoses Not on filedocumented in this encounter Additional Health Concerns Assessment Noted Time PHQ-9 Depression Total Score: 0 11/26/19 22 2:34 PM CDT documented as of this encounter Care Teams Handling Tech Relationship Specialty Start Date End Date Kat Jimenez FNP [address] [place] [address] PCP - General Nurse Practitioner Family 02/11/21 documented as of this encounter
--- OUTSIDE RECORDS SUMMARY | 2025-04-10 20:56 | XMS_ITS | Encounter Summary ---
Author Organization [facility] Address [facility] [place] [address] Care Team Providers Care Home Appliance Technician Name Role Phone Kat Jimenez Primary Care Provider [phone] Encounter Details Date Type Department Care Team (Late st Contact Info) Description 07/25/2022 MyChart Message Enc [facility] Medical Group Family & Internal Medicine [facility] [address] [place] [address] Kat Jimenez FNP [address] [place], [place] [phone] Pre-authorization Social History Tobacco Use Types Packs/Day [...] Coronavirus/COVID-19? No / Unsure 07/13/2022 2:24 PM SENIOR QC TECHNICIAN documented as of this encounter Plan of Treatment Upcoming Encounters Date Type Department Care Team (Late st Contact Info) Description 04/17/2025 9:00 AM CDT Office Visit [facility] Medical [facility] Foot & Ankle Specialists - [address], 2nd [place] [address] Deny Rodriguez, LAURIE [address] [place] [address] 05/28/2025 10:40 AM CDT Office Visit [facility] Multispecialty Care - [facility] [address] [facility], [address] [place] [address] Jose Vaughn MD 3 [place] [address] documented as of this encounter Visit Diagnoses Not on filedocumented in this encounter Additional Health Concerns Assessment Noted Time PHQ-9 Depression Total Score: 0 11/26/19 22 2:34 PM CDT documented as of this encounter Care Teams Home Appliance Technician Relationship Specialty Start Date End Date Kat Jimenez FNP [address] [place] [address] PCP - General Nurse Practitioner Family 02/11/21 documented as of this encounter
--- OUTSIDE RECORDS SUMMARY | 2025-04-10 20:56 | XMS_ITS | Encounter Summary ---
Author Organization [facility] Address [facility] [place] [address] Care Team Providers Care Graphite Disk Assembler Name Role Phone Kat Jimenez Primary Care Provider [phone] Encounter Details Date Type Department Care Team (Late st Contact Info) Description 11/28/2022 MyChart Message Enc [facility] Medical Group Family & Internal Medicine [facility] [address] [place] [address] Kat Jimenez FNP [address] [place] [address] Still no hydrocodone vraylar Social [...] Office Visit [facility] Medical Group Foot & Ankle Specialists - [address], 2nd [place] [address] Deny Rodriguez DPM [address] [place], [place] [address] 05/28/2025 10:40 AM CDT Office Visit [facility] Medical Group Multispecialty Care - [address], [address] [place] [address] Jose Vaughn MD [address] [place] [address] [place] [address] documented as of this encounter Visit Diagnoses Not on filedocumented in this encounter Additional Health Concerns Assessment Noted Time PHQ-9 Depression Total Score: 0 11/26/19 22 2:34 PM CDT documented as of this encounter Care Teams Graphite Disk Assembler Relationship Specialty Start Date End Date Kat Jimenez FNP [address] [place] [address] [phone] PCP - General Nurse Practitioner Family 02/11/21 documented as of this encounter
--- OUTSIDE RECORDS SUMMARY | 2025-04-10 20:56 | XMS_ITS | Clinical Summary ---
Author Organization [facility] [employer] Address [address] [place] [address] Care Team Providers Care Senior Accounting Specialist Name Role Phone Kat Jimenez YODIT-MIXER OPERATOR Primary Care Provider [phone] Source Comments [facility] [employer],non-owned Affiliates and Associated Physician Practices is amultiple site organization consisting of ambulatory clinics and hospital sitesin [place], [place], [place] and [place]. This disclosure is being madepursuant to the Care Everywhere program and may not contain all information available regarding this patient. Last updated 18.[facility] [employer] Allergies Active Allergy Reactions Criticality Noted Date [...] vitamin D, ergocalciferol , (Drisdol) 1.25 MG (46536 UT) capsule Take 1 (one) capsule by [...] mouth once daily 5 Active HYDROcodone-ac etaminophen (Mcallen) 10-325 MG tablet Take 1 (one) tablet [...] on file Legal Sex Female 9:49 AM PETROL TANKER DRIVER Gender Identity Not on file Sexual Orientation Not on file Last Filed Vital Signs Vital Sign Reading Time Taken Comments Blood Pressure 123/74 10/08/2024 3:00 PM PETROL TANKER DRIVER Pulse 85 10/08/2024 3:00 PM PETROL TANKER DRIVER Temperature 36.6 C (97.9 F) 10/08/2024 2:36 PM PETROL TANKER DRIVER Respiratory Rate 19 10/08/2024 3:00 PM PETROL TANKER DRIVER Oxygen Saturation 92% 10/08/2024 3:00 PM PETROL TANKER DRIVER Inhaled Oxygen Concentration - - Weight 99.9 kg (220 lb 3.2 oz) 10/08/2024 11:11 AM PETROL TANKER DRIVER Height 162.6 cm (5' 4) 10/08/2024 11:11 AM PETROL TANKER DRIVER Body Mass Index 37.8 10/08/2024 11:11 AM PETROL TANKER DRIVER Plan of Treatment Health Maintenance Due Date [...] this topic Medical Devices Implanted Type Area Auto Winder Device Identifier Shelf Expiration Date Model / Serial / Lot Stent Uret 5fr 24cm 2 Pgtl Crv 2 Drmtr Implanted:Qty : 1 on 09/24/2024 by Jocelyn Cervantes DO at [facility] Right: [employer] [id number] 03/20/2027 [id number] 20 / / [id number] Explanted Type Area Auto Winder Device Identifier Shelf Expiration Date Model / Serial / Lot Stent Uret 6fr 22cm Sft Tria Explanted:Qty : 1 on 09/24/2024 by Jocelyn Cervantes DO at [facility] Right: [employer] Trung [id number] 02/08/2027 [id number] 10 / / [id number] [place] [address] [facility] Advance Directives * Full Code (Latest Code Status on File) Date Activated Date Inactivated Comments 09/24/2024 5:31 AM 09/25/2024 1:11 PM Care Teams Senior Accounting Specialist Relationship Specialty Start Date End Date Kat Jimenez APRN-HAZEL [address] [place] [address] PCP - General 08/10/21
--- OUTSIDE RECORDS SUMMARY | 2025-04-10 20:56 | XMS_ITS | Encounter Summary ---
Author Organization [facility] Address [facility] [place] [address] Care Team Providers Care Chemotherapist Name Role Phone Kat Jimenez Primary Care Provider [phone] Encounter Details Date Type Department Care Team (Late st Contact Info) Description 10/06/2021 MyChart Message Enc [facility] Medical Group Family & Internal Medicine [facility] [address] [place] [address] Kat Jimenez FNP [address] [place], [place] [address] Med refills Social History Tobacco Use Types [...] a pain management to get her in. SOLUTIONS SALES CONSULTANT documented in this encounter Plan of Treatment Upcoming Encounters Date Type Department Care Team (Late st Contact Info) Description 04/17/2025 9:00 AM CDT Office Visit [facility] Medical [facility] Foot & Ankle Specialists - [address], 2nd [place] [address] Deny Rodriguez, DPM [address] [place] [address] 05/28/2025 10:40 AM CDT Office Visit [facility] Multispecialty Care - [facility] [address] [facility], [address] [place] [address] Jose Vaughn MD 3 [place] [address] documented as of this encounter Visit Diagnoses Not on filedocumented in this encounter Additional Health Concerns Assessment Noted Time PHQ-9 Depression Total Score: 25 021 3:00 PM CDT documented as of this encounter Care Teams Chemotherapist Relationship Specialty Start Date End Date Kat Jimenez FNP [address] [place] [address] PCP - General Nurse Practitioner Family 02/11/21 documented as of this encounter
--- OUTSIDE RECORDS SUMMARY | 2025-04-10 20:56 | XMS_ITS | Encounter Summary ---
Author Organization [facility] Address [facility] [place] [address] Care Team Providers Care Plumbing And Heating Mechanic Name Role Phone Kat Jimenez Primary Care Provider [phone] Encounter Details Date Type Department Care Team (Late st Contact Info) Description 05/05/2021 MyChart Message Enc [facility] Medical Group Family & Internal Medicine [facility] [address] [place] [address] Kat Jimenez FNP [address] [place] [address] RE: Referral Request Social History [...] [facility] Medical [facility] Special[facility] - [place] [address] [facility], 2nd [place] [address] Deny Rodriguez, DPOlayinka [address] [place] [address] 05/28/2025 10:40 AM CDT Office Visit [facility] Multispecialty Care - [facility] [address] [facility], [address] [place] [address] Jose Vaughn MD 3 [place] [address] documented as of this encounter Visit Diagnoses Not on filedocumented in this encounter Additional Health Concerns Infection Onset Date Last Indicated Resolved Time COVID-19 Rule Out 05/10/2021 05/10/2021 05/12/2021 12:30 AM CDT Assessment Noted Time PHQ-9 Depression Total Score: 25 021 3:00 PM CDT documented as of this encounter Care Teams Plumbing And Heating Mechanic Relationship Specialty Start Date End Date Kat Jimenez FNP [address] [place] [address] PCP - General Nurse Practitioner Family 02/11/21 documented as of this encounter
--- OUTSIDE RECORDS SUMMARY | 2025-04-10 20:56 | XMS_ITS | Clinical Summary ---
Author Organization [facility] Address [facility] [place] [address] Care Team Providers Care Dispensary Clerk Name Role Phone Kat Jimenez NP Primary Care Provider [phone] Kat Jimenez NP Unavailable [phone] Kat Jimenez NP Unavailable [phone] Allergies Active Allergy Reactions Criticality Noted Date [...] on file Legal Sex Female 8:11 AM RETAIL EVENT COORDINATOR Gender Identity Not on file Sexual Orientation Not on file Obstetrics History Last Filed Vital Signs Vital Sign Reading Time Taken Comments Blood Pressure 139/100 08/24/2021 3:04 PM RETAIL EVENT COORDINATOR Pulse 91 08/24/2021 3:04 PM RETAIL EVENT COORDINATOR Temperature 36.5 C (97.7 F) 08/24/2021 3:04 PM RETAIL EVENT COORDINATOR Respiratory Rate 20 08/24/2021 3:04 PM RETAIL EVENT COORDINATOR Oxygen Saturation 98% 08/24/2021 3:04 PM RETAIL EVENT COORDINATOR Inhaled Oxygen Concentration - - Weight 103.4 kg (228 lb) 08/24/2021 3:04 PM RETAIL EVENT COORDINATOR Height 160 cm (5' 3) 08/03/2021 3:17 PM RETAIL EVENT COORDINATOR Body Mass Index 40.39 08/03/2021 3:17 PM RETAIL EVENT COORDINATOR Plan of Treatment Not on file Goals [...] Payer ID:[id number] (NAIC) Type:MEDICAID RISK OTHER Address: [address] [facility] Care Teams Dispensary Clerk Relationship Specialty Start Date End Date Kat Jimenez NP [address] [place] [address] PCP - General Nurse Practitioner 05/11/21 Kat Jimenez NP [address] [place] [address] Nurse Practitioner 05/11/21 Kat Jimenez NP [address] [place] [address] Nurse Practitioner Nurse Practitioner 04/02/21
--- OUTSIDE RECORDS SUMMARY | 2025-04-10 20:56 | XMS_ITS | Encounter Summary ---
Author Organization [facility] Address [place] [address] Care Team Providers Care Chronic Disease Epidemiologist Name Role Phone Kat Jimenez Primary Care Provider [phone] Encounter Details Date Type Department Care Team (Late st Contact Info) Description 02/22/2022 MyChart Message Enc [facility] Medical Group Family & Internal Medicine [facility] [address] [place] [address] Kat Jimenez FNP [address] [place] [address] Severe pain Social History Tobacco [...] Office Visit [facility] Medical Group Foot & Ankle Specialists - [address], 2nd [place] [address] Deny Rodriguez, LAURIE [address] [place] [address] 05/28/2025 10:40 AM CDT Office Visit [facility] Medical Group Multispecialty Care - [facility] [address] [facility], [address] [place] [address] Jose Vaughn MD 3 [place] [address] documented as of this encounter Visit Diagnoses Not on filedocumented in this encounter Additional Health Concerns Assessment Noted Time PHQ-9 Depression Total Score: 0 11/26/19 22 2:34 PM CDT documented as of this encounter Care Teams Chronic Disease Epidemiologist Relationship Specialty Start Date End Date Kat Jimenez FNP [address] [place] [address] PCP - General Nurse Practitioner Family 6/17/21 documented as of this encounter
--- OUTSIDE RECORDS SUMMARY | 2025-04-10 20:56 | XMS_ITS | Encounter Summary ---
Author Organization [facility] Address [facility] [place] [address] Care Team Providers Care Well Treatment Offsider Name Role Phone Kat Jimenez Primary Care Provider [phone] Encounter Details Date Type Department Care Team (Late st Contact Info) Description 07/25/2022 MyChart Message Enc [facility] Medical Group Family & Internal Medicine [facility] [address] [place] [address] Kat Jimenez FNP [address] [place], [place] [phone] Pre-authorization Social History Tobacco Use Types Packs/Day [...] Coronavirus/COVID-19? No / Unsure 07/13/2022 2:24 PM CREDIT REPRESENTATIVE documented as of this encounter Plan of Treatment Upcoming Encounters Date Type Department Care Team (Late st Contact Info) Description 04/17/2025 9:00 AM CDT Office Visit [facility] Medical [facility] Foot & Ankle Specialists - [address], 2nd [place] [address] Deny Rodriguez, LAURIE [address] [place] [address] 05/28/2025 10:40 AM CDT Office Visit [facility] Multispecialty Care - [facility] [address] [facility], [address] [place] [address] Jose Vaughn MD 3 [place] [address] documented as of this encounter Visit Diagnoses Not on filedocumented in this encounter Additional Health Concerns Assessment Noted Time PHQ-9 Depression Total Score: 0 11/26/19 22 2:34 PM CDT documented as of this encounter Care Teams Well Treatment Offsider Relationship Specialty Start Date End Date Kat Jimenez FNP [address] [place] [address] PCP - General Nurse Practitioner Family 02/11/21 documented as of this encounter
--- OUTSIDE RECORDS SUMMARY | 2025-04-10 20:56 | XMS_ITS | Encounter Summary ---
Author Organization [facility] Address [facility] [place] [address] Care Team Providers Care Linux System Engineer Name Role Phone Kat Jimenez Primary Care Provider [phone] Encounter Details Date Type Department Care Team (Late st Contact Info) Description 05/04/2024 MyChart Message Enc [facility] Medical Group Family & Internal Medicine [facility] [address] [place] [address] Kat Jimenez FNP [address] [place], [place] [phone] Meds pain Social History Tobacco Use Types [...] Medical Group [facility]le Specialists - [place] [address] [facility], 2nd [place] [address] Deny Rodriguez, DPM [address] [place] [address] 05/28/2025 10:40 AM CDT Office Visit [facility] Multispecialty Care - [facility] [address] [facility], [address] [place] [address] Jose Vaughn MD 3 [place] [address] documented as of this encounter Visit Diagnoses Not on filedocumented in this encounter Additional Health Concerns Assessment Noted Time PHQ-9 Depression Total Score: 10 024 1:37 PM CDT documented as of this encounter Care Teams Linux System Engineer Relationship Specialty Start Date End Date Kat Jimenez FNP [address] [place] [address] PCP - General Nurse Practitioner Family 02/11/21 documented as of this encounter
--- OUTSIDE RECORDS SUMMARY | 2025-04-10 20:56 | XMS_ITS | Encounter Summary ---
Author Organization [facility] Address [address] [place] [address] Care Team Providers Care Lab Technologist Name Role Phone Juliann Ambrosio MD Primary Care Provider [phone] Kat Jimenez Primary Care Provider [phone] Encounter Details Date Type Department Care Team (Late Contact Info) Description 02/02/2019 Abstract SFL CONVERSION [address] [place] [address] [place] [address] , Generic Conversion, Social History Tobacco Use [...] CDT Office Visit [facility] - [address], 2nd [place] [address] Deny Rodriguez DPM [address] [place], [place] [id number] 05/28/2025 10:40 AM CDT Office Visit [facility] Multispecialty Care - [address], [address] [place] [address] Jose Vaughn MD [address] [place] [address] documented as of this encounter Visit Diagnoses Not on filedocumented in this encounter Additional Health Concerns Infection Onset Date Last Indicated Resolved Time COVID-19 Rule Out 05/10/2021 05/10/2021 05/12/2021 12:30 AM CDT documented as of this encounter Care Teams Lab Technologist Relationship Specialty Start Date End Date Juliann Ambrosio MD PCP - General INTERNAL MEDICINE 12/29/20 02/10/21 Kat Jimenez FNP [address] [place] [address] PCP - General Nurse Practitioner Family 02/11/21 documented as of this encounter
--- OUTSIDE RECORDS SUMMARY | 2025-04-10 20:56 | XMS_ITS | Encounter Summary ---
Author Organization [facility] Address [facility] [place] [address] Care Team Providers Care Rural Service Engineer Name Role Phone Kat Jimenez Primary Care Provider [phone] Encounter Details Date Type Department Care Team (Late st Contact Info) Description 03/28/2021 MyChart Message Enc [facility] Medical Group Family & Internal Medicine [facility] [address] [place] [address] Kat Jimenez FNP [address] [place] [address] Referral Request Social History Tobacco [...] Description 04/17/2025 9:00 AM CDT Office Visit [facility] - [place] [address] [facility], 2nd [place] [address] Deny Rodriguez, DPM [address] [place] [address] 05/28/2025 10:40 AM CDT Office Visit [facility] Care - [facility] [address] [facility], [address] [place] [address] Jose Vaughn MD [address] [place] [address] documented as of this encounter Visit Diagnoses Not on filedocumented in this encounter Additional Health Concerns Infection Onset Date Last Indicated Resolved Time COVID-19 Rule Out 05/10/2021 05/10/2021 05/12/2021 12:30 AM CDT Assessment Noted Time PHQ-9 Depression Total Score: 25 021 3:00 PM CDT documented as of this encounter Care Teams Rural Service Engineer Relationship Specialty Start Date End Date Kat Jimenez FNP [address] [place] [address] PCP - General Nurse Practitioner Family 02/11/21 documented as of this encounter
--- OUTSIDE RECORDS SUMMARY | 2025-04-10 20:56 | XMS_ITS | Encounter Summary ---
Author Organization [facility] Address [facility] [place] [address] Care Team Providers Care Helper Maintenance Cleaning Name Role Phone Kat Jimenez Primary Care Provider [phone] Encounter Details Date Type Department Care Team (Late st Contact Info) Description 10/31/2021 MyChart Message Enc [facility] Medical Group Family & Internal Medicine [facility] [address] [place] [address] Kat Jimenez FNP [address] [place] [address] Tylenol with codeine Social History [...] Coronavirus/COVID-19? No / Unsure 10/29/2021 1:59 PM VETERANS SERVICE REPRESENTATIVE documented as of this encounter Progress Notes [...] the office and just got this message. RANS SERVICE REPRESENTATIVE documented in this encounter Plan of Treatment Upcoming Encounters Date Type Department Care Team (Late st Contact Info) Description 04/17/2025 9:00 AM CDT Office Visit [facility] - [address], 2nd [place] [address] Deny Rodriguez DPM [address] [place] [address] 05/28/2025 10:40 AM CDT Office Visit [facility] Multispecialty Care - [address], [address] [place] [address] Jose Vaughn MD [address] [place] [address] documented as of this encounter Visit Diagnoses Not on filedocumented in this encounter Additional Health Concerns Assessment Noted Time PHQ-9 Depression Total Score: 25 022 2:24 PM VETERANS SERVICE REPRESENTATIVE documented as of this encounter Care Teams Helper Maintenance Cleaning Relationship Specialty Start Date End Date Kat Jimenez FNP [address] [place] [address] PCP - General Nurse Practitioner Family 02/11/21 documented as of this encounter
--- OUTSIDE RECORDS SUMMARY | 2025-04-10 20:56 | XMS_ITS | Encounter Summary ---
Author Organization [facility] Address [facility] [place] [address] Care Team Providers Care Bale Piler Name Role Phone Kat Jimenez Primary Care Provider [phone] Encounter Details Date Type Department Care Team (Late st Contact Info) Description 09/16/2022 MyChart Message Enc [facility] Medical Group Family & Internal Medicine [facility] [address] [place] [address] Kat Jimenez FNP [address] [place] [address] MRI Social History Tobacco Use [...] Coronavirus/COVID-19? No / Unsure 09/19/2022 1:02 PM LOADMASTER documented as of this encounter Plan of Treatment Upcoming Encounters Date Type Department Care Team (Late st Contact Info) Description 04/17/2025 9:00 AM CDT Office Visit [facility] - [address], 2nd [place] [address] Deny Rodriguez, DPM [address] [place] [address] 05/28/2025 10:40 AM CDT Office Visit [facility] Multispecialty Care - [facility] [address] [facility], [address] [place] [address] Jose Vaughn MD [address] [place] [address] documented as of this encounter Visit Diagnoses Not on filedocumented in this encounter Additional Health Concerns Assessment Noted Time PHQ-9 Depression Total Score: 0 11/26/19 22 2:34 PM CDT documented as of this encounter Care Teams Bale Piler Relationship Specialty Start Date End Date Kat Jimenez FNP [address] [place] [address] PCP - General Nurse Practitioner Family 02/11/21 documented as of this encounter
--- OUTSIDE RECORDS SUMMARY | 2025-04-10 20:56 | XMS_ITS | Encounter Summary ---
Author Organization [facility] Address [facility] [place] [address] Care Team Providers Care Cloth Sponger Name Role Phone Kat Jimenez Primary Care Provider [phone] Encounter Details Date Type Department Care Team (Late st Contact Info) Description 10/25/2021 MyChart Message Enc [facility] Family & Internal Medicine [facility] [address] [place] [address] Kat Jimenez FNP [address] [place], [place] [id number] Baclofen Social History Tobacco Use Types Packs/Day [...] Coronavirus/COVID-19? No / Unsure 10/25/2021 12:46 PM NAPKIN BAND WRAPPER documented as of this encounter Plan of Treatment Upcoming Encounters Date Type Department Care Team (Late st Contact Info) Description 04/17/2025 9:00 AM CDT Office Visit [facility] - [place] [address] [place] [address], 2nd [place] [address] Deny Rodriguez, LAURIE [address] [place] [address] 05/28/2025 10:40 AM CDT Office Visit [facility] Multispecialty Care - [address], [address] [place] [address] Jose Vaughn MD [address] [place] [address] documented as of this encounter Visit Diagnoses Not on filedocumented in this encounter Additional Health Concerns Assessment Noted Time PHQ-9 Depression Total Score: 25 021 3:00 PM CDT documented as of this encounter Care Teams Cloth Sponger Relationship Specialty Start Date End Date Kat Jimenez FNP [address] [place] [address] PCP - General Nurse Practitioner Family 02/11/21 documented as of this encounter
--- OUTSIDE RECORDS SUMMARY | 2025-04-10 20:56 | XMS_ITS | Encounter Summary ---
Author Organization [facility] Address [facility] [place] [address] Care Team Providers Care Manager Games Name Role Phone Kat Jimenez Primary Care Provider [phone] Encounter Details Date Type Department Care Team (Late st Contact Info) Description 06/05/2021 MyCRypost Message Enc [facility] Medical Group Family & Internal Medicine [facility] [address] [place] [address] Kat Jimenez FNP [address] [place] [address] RE: FW: Question Social History [...] Description 04/17/2025 9:00 AM CDT Office Visit [facility] Medical [facility]le Specialists - [address], 2nd [place] [address] Deny Rodriguez, LAURIE [address] [place] [address] 05/28/2025 10:40 AM CDT Office Visit [facility] Multispecialty Care - [facility] 3 [facility], [address] [place] [address] Jose Vaughn MD 3 [place] [address] documented as of this encounter Visit Diagnoses Not on filedocumented in this encounter Additional Health Concerns Assessment Noted Time PHQ-9 Depression Total Score: 25 02/11/ 021 3:00 PM CDT documented as of this encounter Care Teams Manager Games Relationship Specialty Start Date End Date Kat Jimenez FNP [address] [place] [address] PCP - General Nurse Practitioner Family 02/11/21 documented as of this encounter
--- OUTSIDE RECORDS SUMMARY | 2025-04-10 20:56 | XMS_ITS | Encounter Summary ---
Author Organization [facility] Address [facility] [place] [address] Care Team Providers Care Head Paper Tester Name Role Phone Kat Jimenez Primary Care Provider [phone] Encounter Details Date Type Department Care Team (Late st Contact Info) Description 12/19/2022 MyChart Message Enc [facility] Medical Group Family & Internal Medicine [facility] [address] [place] [address] Kat Jimenez FNP [address] [place] [address] Referral to orthopedic doctor Social [...] Description 04/17/2025 9:00 AM CDT Office Visit [facility] Medical [facility] - [place] [address] [place] [address], 2nd [place] [address] Deny Rodriguez, LAURIE [address] [place] [address] 05/28/2025 10:40 AM CDT Office Visit [facility] Multispecialty Care - [address], [address] [place] [address] Jose Vaughn MD [address] [place] [address] documented as of this encounter Visit Diagnoses Not on filedocumented in this encounter Additional Health Concerns Assessment Noted Time PHQ-9 Depression Total Score: 0 11/26/19 22 2:34 PM CDT documented as of this encounter Care Teams Head Paper Tester Relationship Specialty Start Date End Date Kat Jimenez FNP [address] [place] [address] PCP - General Nurse Practitioner Family 02/11/21 documented as of this encounter
--- OUTSIDE RECORDS SUMMARY | 2025-04-10 20:56 | XMS_ITS | Encounter Summary ---
Author Organization [facility] Address [address] [place] [address] Care Team Providers Care Project Estimator Name Role Phone Kat Jimenez RAYMUNDO Primary Care Provider [phone] Encounter Details Date Type Department Care Team (Late st Contact Info) Description 09/16/2022 MyChart Message Enc [facility] Medical Group Multispecialty Care - [facility] 3 [facility], [address] [place] [address] Jerson Jacques MD 3 [place] [address] Dermal implants /MRI Social History Tobacco Use [...] Coronavirus/COVID-19? No / Unsure 09/19/2022 1:02 PM SEAM STAY STITCHER documented as of this encounter Plan of Treatment Upcoming Encounters Date Type Department Care Team (Late st Contact Info) Description 04/17/2025 9:00 AM CDT Office Visit [facility]le Specialists - [address], 2nd [place] [address] Deny Rodriguez DPM [address] [place] [address] 05/28/2025 10:40 AM CDT Office Visit [facility] Multispecialty Care - [facility] 3 [facility], [address] [place] [address] Jose Vaughn MD [address] [place] [address] documented as of this encounter Visit Diagnoses Not on filedocumented in this encounter Additional Health Concerns Assessment Noted Time PHQ-9 Depression Total Score: 0 11/26/19 22 2:34 PM CDT documented as of this encounter Care Teams Project Estimator Relationship Specialty Start Date End Date Kat Jimenez FNP [address] [place] [address] PCP - General Nurse Practitioner Family 02/11/21 documented as of this encounter
--- OUTSIDE RECORDS SUMMARY | 2025-04-10 20:56 | XMS_ITS | Encounter Summary ---
Author Organization [facility] Address [facility] [place] [address] Care Team Providers Care Rail Car Painter/Sandblaster Name Role Phone Kat Jimenez Primary Care Provider [phone] Encounter Details Date Type Department Care Team (Late st Contact Info) Description 05/31/2021 MyChart Message Enc [facility] Medical Group Family & Internal Medicine [facility] [address] [place] [address] Kat Jimenez FNP [address] [place] [address] RE: Question Social History Tobacco [...] 04/17/2025 9:00 AM CDT Office Visit [facility] - [place] [address] [facility], 2nd [place] [address] Deyn Rodriguez, DPOlayinka [address] [place] [address] 05/28/2025 10:40 AM CDT Office Visit [facility] Multispecialty Care - [facility] 3 [facility], [address] [place] [address] Jose Vaughn MD 3 [place] [address] documented as of this encounter Visit Diagnoses Not on filedocumented in this encounter Additional Health Concerns Assessment Noted Time PHQ-9 Depression Total Score: 25 02/11/ 021 3:00 PM CDT documented as of this encounter Care Teams Rail Car Painter/Sandblaster Relationship Specialty Start Date End Date Kat Jimenez FNP [address] [place] [address] PCP - General Nurse Practitioner Family 02/11/21 documented as of this encounter
--- OUTSIDE RECORDS SUMMARY | 2025-04-10 20:56 | XMS_ITS | Encounter Summary ---
Author Organization [facility] Address Counts include 234 beds at the [facility] [place] [address] Care Team Providers Care Concert Pianist Name Role Phone Kat Jimenez Primary Care Provider [phone] Encounter Details Date Type Department Care Team (Late st Contact Info) Description 09/10/2022 MyChart Message Enc [facility] Medical Group Family & Internal Medicine [facility] [address] [place] [address] Kat Jimenez FNP [address] [place] [address] Ability to work Social History [...] Coronavirus/COVID-19? No / Unsure 08/17/2022 2:09 PM PROFILE MILL OPERATOR TAPE CONTROL documented as of this encounter Plan of Treatment Upcoming Encounters Date Type Department Care Team (Late st Contact Info) Description 04/17/2025 9:00 AM CDT Office Visit [facility] - [place] [address] [place] [address], 2nd [place] [address] Deny Rodriguez, DPM [address] [place] [address] 05/28/2025 10:40 AM CDT Office Visit [facility] Multispecialty Care - [facility] 3 [facility], [address] [place] [address] Jose Vaughn MD [address] [place] [address] documented as of this encounter Visit Diagnoses Not on filedocumented in this encounter Additional Health Concerns Assessment Noted Time PHQ-9 Depression Total Score: 0 11/26/19 22 2:34 PM CDT documented as of this encounter Care Teams Concert Pianist Relationship Specialty Start Date End Date Kat Jimenez FNP [address] [place] [address] PCP - General Nurse Practitioner Family 02/11/21 documented as of this encounter
--- NOTE | 2025-04-10 21:09 | PC.NURSE ---
RESTING ON STRETCHER IN ROOM WITH SIGNIFICANT OTHER AT HER SIDE. CALL LIGHT IN REACH.
--- NOTE | 2025-04-10 21:18 | ED_ITS ---
HPI - Back Pain/Injury General Chief Complaint: Back Pain/Injury Stated Complaint: Back Pain Time Seen by Provider: 04/10/25 20:27 Source: patient and family Mode of arrival: ambulatory Limitations: no limitations History of Present Illness HPI Narrative: this is a 39-year-old female with history of lower back pain presents with low back pain after she bent over and heard a pop, has a negative straight leg raisi ng test no pain elicited with movement of her lower extremities no numbness or tingling no radiation of her pain. Patient has pain in the L4 midline area of her lumbar spine with no nausea vomiting no flank pain no dysuria or hematuria. There is no fever chills no saddle paresthesia MD elicited complaint: back pain Pertinent past history: prior back pain Onset (ago): hour(s) Timing: constant Severity: moderate Similar Symptoms Previously: Yes Quality: aching Location: lumbar spine Related Data Home Medications ?Medication ?Instructions ?Recorded ?Confirmed ?Last Taken ?Type clonazepam 1 mg tablet 1 mg PO BID 05/12/20 06/12/24 06/12/24 History sertraline 100 mg tablet 200 mg PO DAILY 05/12/20 06/12/24 06/12/24 History atorvastatin 10 mg tablet 10 mg PO DAILY 06/16/22 06/12/24 06/12/24 History baclofen 20 mg tablet 20 mg PO TID PRN Pain 06/16/22 06/12/24 06/12/24 History celecoxib 200 mg capsule 200 mg PO DAILY 06/16/22 06/12/24 06/12/24 History duloxetine 60 mg capsule,delayed 60 mg PO DAILY 06/16/22 06/12/24 06/12/24 History release hydrocodone 10 mg-acetaminophen 1 tablet PO TID PRN Pain 06/16/22 06/12/24 06/12/24 History 325 mg tablet prazosin 1 mg capsule 2 mg PO HS 08/05/23 06/12/24 06/12/24 History albuterol sulfate 90 mcg/actuation 90 mcg inhalation PRN 06/12/24 06/12/24 06/12/24 History aerosol inhaler atogepant 60 mg tablet (Qulipta) 60 mg PO DAILY 06/12/24 06/12/24 06/12/24 History budesonide-formoterol HFA 160 2 puff inhalation DAILY 06/12/24 06/12/24 06/12/24 History mcg-4.5 mcg/actuation aerosol inhaler (Symbicort) cariprazine 3 mg capsule (Vraylar) 3 mg PO DAILY 06/12/24 06/12/24 06/12/24 History ergocalciferol (vitamin D2) 1,250 1,250 mcg PO DAILY 06/12/24 06/12/24 06/12/24 History mcg (50,000 unit) capsule methocarbamol 750 mg tablet 750 mg PO PRN 06/12/24 06/12/24 06/12/24 History Allergies Allergy/AdvReac Type Severity Reaction Status Date / Time amoxicillin (From Amoxil) Allergy Itching Verified 04/10/25 20:43 bupropion (From Wellbutrin) Allergy Itching Verified 04/10/25 20:43 buspirone Allergy Itching Verified 04/10/25 20:43 gabapentin Allergy Unknown Verified 04/10/25 20:43 ketorolac (From Toradol) Allergy Itching Verified 04/10/25 20:43 Latex, Natural Rubber Allergy Itching Verified 04/10/25 20:43 quetiapine (From Seroquel) Allergy Unknown Verified 04/10/25 20:43 tramadol Allergy Itching Verified 04/10/25 20:43 Review of Systems Review of Systems: All systems reviewed & are unremarkable except as noted in HPI and below PMFSH Past Medical History Medical History Degenerative disc disease Bipolar disorder Asthma Surgical History Surgical History H/O oophorectomy H/O tubal ligation Hx of cholecystectomy History of appendectomy Social History Social History Smoking status: Current every day smoker Substance use: never Living arrangements: with family Exam Const: General: healthy appearing, no acute distress and alert Nutritional Appearance: well nourished Orientation/consciousness: patient oriented x3 Limitations: no limitations Eyes: Conjunctivae: conjunctivae normal Pupils: Equal, round and reactive pupils present Neck: Neck: normal visual inspection Chest: Chest palpation & inspection: normal inspection of the chest Resp: Effort & Inspection: normal respiratory effort Auscultation: clear to auscultation bilaterally Cardio: Rate: regular rate Rhythm: regular rhythm GI: Auscultation: normal bowel sounds : General: Yes bladder normal to palpation Urinary Catheter: Urinary Catheter: patent and draining Back/Spine/Pelvis: Back: no CVA tenderness Skin: General skin exam: normal color Rashes: no rashes Wounds: no wounds Neuro: General: patient oriented x3, moves all extremities, no meningeal signs and no focal motor deficits Extrem: General: normal to inspection Course Course Emergency Course: patient received 80mg IM Depo-Medrol and after reassessment pain level has slightly improved advised patient to follow-up with her primary care physician x-ray of lumbar spine shows anterior listhesis but no acute fractures or abno rmalities noted. Vital Signs Vital signs: Vital Signs Temperature 36.6 C 04/10/25 20:26 Pulse Rate 102 H 04/10/25 20:26 Respiratory Rate 15 04/10/25 20:26 Blood Pressure 127/68 04/10/25 20:26 Pulse Oximetry 98 04/10/25 20:26 Oxygen Delivery Room Air 04/10/25 20:26 Temperature 36.6 C 04/10/25 20:26 Pulse Rate 102 H 04/10/25 20:26 Respiratory Rate 15 04/10/25 20:26 Blood Pressure 127/68 04/10/25 20:26 Pulse Oximetry 98 04/10/25 20:26 Oxygen Delivery Room Air 04/10/25 20:26 Critical Care Time Critical Care Time Critical Care Time: No Discharge Plan Discharge Clinical Impression: Strain of lumbar region Qualifiers: Encounter type: initial encounter Qualified Code(s): S39.012A - Strain of muscle, fascia and tendon of lower back, initial encounter Patient Disposition: Home Condition: Stable Instructions: Antibiotic Form, Sciatica (ED), Acute Low Back Pain (ED) Additional Instructions: Advised patient to take medication as prescribed and follow with primary care physician within 3 to 5 days for further evaluation and treatment. Patient Language: Vietnamese Prescriptions: New prednisone 20 mg tablet 20 mg PO DAILY 5 Days Qty: 5 0RF No Action sertraline 100 mg Tablet 200 mg PO DAILY clonazepam 1 mg Tablet 1 mg PO BID prednisone 20 mg tablet 20 mg PO DAILY 5 Days Qty: 5 0RF cyclobenzaprine 5 mg tablet 5 mg PO TID Qty: 20 0RF prazosin 1 mg capsule 2 mg PO HS methocarbamol 750 mg tablet 750 mg PO PRN ergocalciferol (vitamin D2) 1,250 mcg (50,000 unit) capsule 1,250 mcg PO DAILY albuterol sulfate 90 mcg/actuation HFA aerosol inhaler 90 mcg INHALATION PRN budesonide-formoterol [Symbicort] 160-4.5 mcg/actuation HFA aerosol inhaler 2 puff INHALATION DAILY Vraylar 3 mg capsule 3 mg PO DAILY Qulipta 60 mg tablet 60 mg PO DAILY celecoxib 200 mg capsule 200 mg PO DAILY atorvastatin 10 mg tablet 10 mg PO DAILY hydrocodone-acetaminophen 10-325 mg tablet 1 tablet PO TID PRN (Reason: Pain) baclofen 20 mg tablet 20 mg PO TID PRN (Reason: Pain) duloxetine 60 mg capsule,delayed release(DR/EC) 60 mg PO DAILY Follow-up/Referrals: MINNEI,YODIT FRANCO [Primary Care Provider] - Time of Disposition: 21:21
[2025-04-10 21:31] VITALS: BP 126/72; PULSE 98; RESP 18; O2SAT 97
== END 2025-04-10 21:31 | disposition home or self-care (01) ==
PROVIDERS: Emergency Provider Emergency Medicine; PCP Nurse Practitioner Family
DX: S39.012A Strain of muscle, fascia and tendon of lower back, initial encounter (principal); F17.200 Nicotine dependence, unspecified, uncomplicated; X50.0XXA Overexertion from strenuous movement or load, initial encounter
CPT/HCPCS: 72100; 96372; 99283; J1010